=== PATIENT | female | born 1995 | race Caucasian/White ===

== ENCOUNTER 2017-11-08 14:16 | Emergency (ER) | payer BC, OTHER ==
[2017-11-08] MEDS ORDERED: METOCLOPRAMIDE 5 MG/ML 2 ML VIAL IVP STA (15:23)
[2017-11-08] MEDS ORDERED: SODIUM CHLORIDE 0.9% 2,000 ML IV STA (15:23)
--- NOTE | 2017-11-08 15:36 | ED ---
Nausea/Vomiting/Diarrhea HPI - General Chief complaint: Nausea/Vomiting/Diarrhea Stated complaint: vomiting/6-7 wks preg Time Seen by Provider: 11/08/17 15:23 Source: patient, RN notes reviewed Mode of arrival: ambulatory Limitations: no limitations - History of Present Illness Initial comments: This a 22-year-old female presents emergency Department chief complaint of nausea vomiting . Patient states that she is not exactly sure how far along she is. Patient had mild abdominal cramping no vaginal bleeding or vaginal discharge. She states she's been getting sick for one week. Patient states that her last menstrual cycle was at the end of August. Patient states she is try to contact her primary care physician and [facility] but they cannot get her in until of October. Patient states she feels lightheaded dizzy from being able to eat or drink anything. She denies any dysuria or hematuria. - Related Data Home Medications Medication Instructions Recorded Confirmed Dht-Wikl-Fbnla Acid 1 cap PO HS 11/08/17 11/08/17 [-U Capsule (formulary)] Previous Rx's Medication Instructions Recorded Metoclopramide [Reglan] 10 mg PO TID PRN #15 tab 11/08/17 Allergies Allergy/AdvReac Type Severity Reaction Status Date / Time No Known Allergies Allergy Verified 11/08/17 15:35 Review of Systems ROS Statement: Those systems with pertinent positive or pertinent negative responses have been documented in the HPI. ROS Other: All systems not noted in ROS Statement are negative. Past Medical History Additional Past Medical History / Comment(s): kidney stones History of Any Multi-Drug Resistant Organisms: None Reported Past Surgical History: No Surgical Hx Reported Past Psychological History: Bipolar Smoking Status: Former smoker Past Alcohol Use History: None Reported Past Drug Use History: None Reported General Exam Limitations: no limitations General appearance: alert, in no apparent distress Head exam: Present: atraumatic, normocephalic, normal inspection Neck exam: Present: normal inspection, full ROM. Absent: tenderness, meningismus, lymphadenopathy Respiratory exam: Present: normal lung sounds bilaterally. Absent: respiratory distress, wheezes, rales, rhonchi, stridor Cardiovascular Exam: Present: regular rate, normal rhythm, normal heart sounds. Absent: systolic murmur, diastolic murmur, rubs, gallop, clicks GI/Abdominal exam: Present: soft, tenderness (Mild left lower quadrant), normal bowel sounds. Absent: distended, guarding, rebound, rigid Back exam: Absent: CVA tenderness (R), CVA tenderness (L) Skin exam: Present: warm, dry, intact, normal color. Absent: rash Course Vital Signs 11/08/17 14:30 Temperature 98.9 F Pulse Rate 95 Respiratory 16 Rate Blood Pressure 120/72 O2 Sat by Pulse 98 Oximetry Medical Decision Making - Medical Decision Making 22-year-old female presented unresponsive chief complaint of nausea vomiting early . Patient's ultrasound does show single viable IUP 6 weeks 1 day. Patient will be discharged with antiemetics though she is advised to try Unisom and B6 [id number] first she is to follow-up with [facility] as soon as possible and return for any worsening symptoms. - Lab Data Result diagrams: 11/08/17 16:08 11/08/17 16:08 Lab Results 11/08/17 11/08/17 11/08/17 Range/Units 16:08 16:08 16:08 WBC 7.8 (4.0-11.0) k/uL RBC 4.22 (3.80-5.40) m/uL Hgb 12.2 (11.4-16.0) gm/dL Hct 37.6 (34.0-46.0) % MCV 89.1 (80.0-100.0) fL MCH 28.9 (25.0-35.0) pg MCHC 32.5 (31.0-37.0) g/dL RDW 14.3 (11.5-15.5) % Plt Count 338 (150-450) k/uL Neutrophils % 67 % Lymphocytes % 24 % Monocytes % 6 % Eosinophils % 1 % Basophils % 0 % Neutrophils # 5.2 (1.3-7.7) k/uL Lymphocytes # 1.9 (1.0-4.8) k/uL Monocytes # 0.5 (0-1.0) k/uL Eosinophils # 0.1 (0-0.7) k/uL Basophils # 0.0 (0-0.2) k/uL Sodium 137 (137-145) mmol/L Potassium 4.4 (3.5-5.1) mmol/L Chloride 102 (98-107) mmol/L Carbon Dioxide 25 (22-30) mmol/L Anion Gap 10 mmol/L BUN 8 (7-17) mg/dL Creatinine 0.72 (0.52-1.04) mg/dL Est GFR (MDRD) Af Amer >60 (>60 ml/min/1.73 sqM) Est GFR (MDRD) Non-Af >60 (>60 ml/min/1.73 sqM) Glucose 81 (74-99) mg/dL Calcium 9.6 (8.4-10.2) mg/dL Total Bilirubin 0.3 (0.2-1.3) mg/dL AST 16 (14-36) U/L ALT 32 (9-52) U/L Alkaline Phosphatase 55 (38-126) U/L Total Protein 7.0 (6.3-8.2) g/dL Albumin 4.1 (3.5-5.0) g/dL Amylase 39 (30-110) U/L Lipase 68 (23-300) U/L Blood Type B Positive Blood Type Recheck No Disposition Clinical Impression: Nausea/vomiting in Disposition: HOME SELF-CARE Condition: Stable Instructions: Nausea and Vomiting in (ED) Additional Instructions: Please return to the Emergency Department if symptoms worsen or any other concerns. Prescriptions: Metoclopramide [Reglan] 10 mg PO TID PRN #15 tab PRN Reason: GERD Referrals: None,Stated [Primary Care Provider] - 1-2 days Time of Disposition: 17:06
[2017-11-08 16:27] LABS: Basophils % (A) 0 %; CH 29.6; CHCM 33.4; Eosinophils # (A) 0.1 k/uL (0-0.7); Eosinophils % (A) 1 %; HCT 37.6 % (34.0-46.0); HDW 2.69; HGB 12.2 gm/dL (11.4-16.0); Luc # (Auto) 0.11; Luc % (Auto) 2; Lymphocytes # (A) 1.9 k/uL (1.0-4.8); Lymphocytes % (A) 24 %; MCH 28.9 pg (25.0-35.0); MCHC 32.5 g/dL (31.0-37.0); MCV 89.1 fL (80.0-100.0); Mean Platelet Volume 7.1; Monocytes # (A) 0.5 k/uL (0-1.0); Monocytes % (A) 6 %; Neutrophils # (A) 5.2 k/uL (1.3-7.7); Neutrophils % (A) 67 %; RBC 4.22 m/uL (3.80-5.40); RDW 14.3 % (11.5-15.5); WBC 7.8 k/uL (4.0-11.0); WBC (Perox) 8.24
[2017-11-08 16:35] LABS: ALT 32 U/L (9-52); AST 16 U/L (14-36); Alkaline Phosphatase 55 U/L (38-126); Amylase 39 U/L (30-110); Anion Gap 10 mmol/L; Blood Urea Nitrogen 8 mg/dL (7-17); Calcium 9.6 mg/dL (8.4-10.2); Carbon Dioxide 25 mmol/L (22-30); Chloride 102 mmol/L (98-107); Glucose 81 mg/dL (74-99); Non-African American GFR(MDRD) >60 (>60 ml/min/1.73 sqM); Potassium 4.4 mmol/L (3.5-5.1); Sodium 137 mmol/L (137-145); Total Bilirubin 0.3 mg/dL (0.2-1.3)
--- NOTE | 2017-11-08 16:57 | US ---
EXAMINATION TYPE: US OB <= 14 wk fetus DATE OF EXAM: 11/08/2017 COMPARISON: NONE CLINICAL HISTORY: Pain. Nausea and vomiting positive beta-hCG test. EXAM PERFORMED: Transabdominal (TA) EXAM MEASUREMENTS: GESTATIONAL AGE / DATING Physician Established: Not yet established Dates by LMP: LMP unknown Dates by First Scan: No previous this is first scan Dates by Current Scan for: (6 weeks/1 days) EDC: 07/03/18 MATERNAL ANATOMY Uterus: 8.1 x 5.8 x 6.8cm Right Ovary: 3.2 x 2.1 x 2.7cm Left Ovary: 2.8 x 1.9 x 1.7cm Post CDS / Adnexa: wnl Presence of free fluid: no Presence of corpus luteal cyst: hypoechoic area right ovary = 1.5 x 1.6 x 1.8cm GESTATION / SURVEY CRL: 0.4cm (6 weeks/1 days) Yolk Sac (normal less than 6mm): 0.3cm Heart Rate: 131 bpm Rhythm: Normal IUP: Viable IUP Date of LMP: end august Beta HcG (if available): Not available at this time Single live intrauterine gestation is confirmed as gestational sac, yolk sac, and pole are iden tified. No free fluid is seen in pelvic cul-de-sac. Both ovaries are identified. Within right ovary there is 1.5 cm hypoechoic lesion felt to reflect cor pus luteal cyst in the periphery. There is no suspicious extraovarian adnexal masses noted. IMPRESSION: Single live intrauterine gestation is confirmed, mean crown-rump length is 0.4 cm corresponding to 6 week 1 day old fetus.
[2017-11-08 17:42] VITALS: BP 102/49; PULSE 78; RESP 18; TEMP 98.7
== END 2017-11-08 17:42 | disposition home or self-care (01) ==
LOC: EC 14:16
DX: O21.0 Mild hyperemesis gravidarum (principal); Z87.442 Personal history of urinary calculi; Z87.891 Personal history of nicotine dependence; Z3A.01 Less than 8 weeks gestation of pregnancy; Z79.899 Other long term (current) drug therapy
CPT/HCPCS: 36415; 86900; 86901; 80053; 82150; 83690; 85025; 76801; 99284; 96374; 96361 ×2; J2765

== ENCOUNTER 2017-12-23 12:06 | Emergency (ER) | payer OTHER ==
[2017-12-23 12:19] VITALS: RESP 16
[2017-12-23] MEDS ORDERED: SODIUM CHLORIDE 0.9% 1,000 ML IV STA (13:38)
--- NOTE | 2017-12-23 13:39 | ED ---
General Adult HPI - General Chief complaint: Abdominal Pain Stated complaint: abdominal pain Time Seen by Provider: 12/23/17 13:16 Source: patient, RN notes reviewed Mode of arrival: ambulatory Limitations: no limitations - History of Present Illness Initial comments: Patient is a 22-year-old female who is approximately 13 weeks , who presents emergency room today with a chief complaint of possible kidney stone. She states she does have history of kidney stones had some left-sided flank pain last night that started. She states feels consistent with scabies seventh past. She does admit to increased nausea vomiting. Patient denies any vaginal bleeding or discharge. Denies any signs of hematuria at this time. Denies any other complaints associated symptoms. Patient denies any recent fever, chills, shortness of breath, chest pain, numbness or tingling, dysuria or hematuria, constipation or diarrhea, headaches or visual changes, or any other complaints. - Related Data Home Medications Medication Instructions Recorded Confirmed Qls-Zlbq-Ixtef Acid 1 cap PO DAILY 11/08/17 12/23/17 [-U Capsule (formulary)] Allergies Allergy/AdvReac Type Severity Reaction Status Date / Time No Known Allergies Allergy Verified 12/23/17 13:34 Review of Systems ROS Statement: Those systems with pertinent positive or pertinent negative responses have been documented in the HPI. ROS Other: All systems not noted in ROS Statement are negative. Past Medical History Additional Past Medical History / Comment(s): kidney stones History of Any Multi-Drug Resistant Organisms: None Reported Past Surgical History: No Surgical Hx Reported Past Psychological History: Bipolar Smoking Status: Former smoker Past Alcohol Use History: None Reported Past Drug Use History: None Reported General Exam Limitations: no limitations Course Vital Signs 12/23/17 12:15 Temperature 97.3 F L Pulse Rate 108 H Respiratory 16 Rate Blood Pressure 131/75 O2 Sat by Pulse 99 Oximetry Medical Decision Making - Medical Decision Making Patient reexamined at this time shows no signs of distress. She is resting comfortable. Patient's ultrasound shows single IUP 13 weeks 1 day. Patient's ultrasound of the kidneys and bladder show no acute abnormality. Patient's resting comfortable with this time. His tolerated by mouth fluids. Given IV bolus. At this time doing well will be discharged home advised follow-up over the next 2 days return here to the emergency room symptoms increase or worsen. - Lab Data Result diagrams: 12/23/17 13:30 12/23/17 13:30 Lab Results 12/23/17 12/23/17 12/23/17 Range/Units 13:30 13:30 13:30 WBC 9.7 (4.0-11.0) k/uL RBC 4.25 (3.80-5.40) m/uL Hgb 12.3 (11.4-16.0) gm/dL Hct 37.0 (34.0-46.0) % MCV 87.2 (80.0-100.0) fL MCH 28.9 (25.0-35.0) pg MCHC 33.2 (31.0-37.0) g/dL RDW 14.6 (11.5-15.5) % Plt Count 318 (150-450) k/uL Neutrophils % 72 % Lymphocytes % 22 % Monocytes % 5 % Eosinophils % 0 % Basophils % 0 % Neutrophils # 7.0 (1.3-7.7) k/uL Lymphocytes # 2.1 (1.0-4.8) k/uL Monocytes # 0.5 (0-1.0) k/uL Eosinophils # 0.0 (0-0.7) k/uL Basophils # 0.0 (0-0.2) k/uL Sodium 138 (137-145) mmol/L Potassium 4.0 (3.5-5.1) mmol/L Chloride 101 (98-107) mmol/L Carbon Dioxide 24 (22-30) mmol/L Anion Gap 13 mmol/L BUN 6 L (7-17) mg/dL Creatinine 0.60 (0.52-1.04) mg/dL Est GFR (MDRD) Af Amer >60 (>60 ml/min/1.73 sqM) Est GFR (MDRD) Non-Af >60 (>60 ml/min/1.73 sqM) Glucose 82 (74-99) mg/dL Calcium 9.9 (8.4-10.2) mg/dL Total Bilirubin 0.4 (0.2-1.3) mg/dL AST 14 (14-36) U/L ALT 21 (9-52) U/L Alkaline Phosphatase 48 (38-126) U/L Total Protein 6.9 (6.3-8.2) g/dL Albumin 4.1 (3.5-5.0) g/dL HCG, Quant 47399.3 mIU/mL Urine Color Yellow Urine Appearance Cloudy H (Clear) Urine pH 6.0 (5.0-8.0) Ur Specific [place] 1.007 (1.001-1.035) Urine Protein Negative (Negative) Urine Glucose (UA) Negative (Negative) Urine Ketones 3+ H (Negative) Urine Blood Negative (Negative) Urine Nitrite Negative (Negative) Urine Bilirubin Negative (Negative) Urine Urobilinogen <2.0 (<2.0) mg/dL Ur Leukocyte Esterase Negative (Negative) Urine RBC 1 (0-5) /hpf Urine WBC 3 (0-5) /hpf Ur Squamous Epith Cells 9 H (0-4) /hpf Amorphous Sediment Rare H (None) /hpf Urine Bacteria Few H (None) /hpf Urine Mucus Few H (None) /hpf Disposition Clinical Impression: , History of kidney stones Disposition: HOME SELF-CARE Condition: Good Instructions: (ED) Referrals: None,Stated [Primary Care Provider] - 1-2 days Sohan Pope DO [STAFF PHYSICIAN] - 1-2 days Time of Disposition: 15:01
[2017-12-23 13:57] LABS: Amorphous Sediment,Urine Rare /hpf; Appearance,Urine Cloudy (Clear); Bacteria,Urine Few /hpf; Bilirubin,Urine Negative (Negative); Blood,Urine Negative (Negative); Color,Urine Yellow; Glucose,Urine (UA) Negative (Negative); Ketones,Urine 3+ (Negative); Leukocyte Esterase,Urine Negative (Negative); Mucus,Urine Few /hpf; Nitrite,Urine Negative (Negative); Protein,Urine Negative (Negative); RBC,Urine 1 /hpf (0-5); Specific Gravity,Urine 1.007 (1.001-1.035); Squamous Epithelial Cell,Urine 9 /hpf (0-4); Urobilinogen,Urine <2.0 mg/dL (<2.0); WBC,Urine 3 /hpf (0-5)
[2017-12-23 13:58] LABS: Basophils % (A) 0 %; Eosinophils % (A) 0 %; HGB 12.3 gm/dL (11.4-16.0); Lymphocytes # (A) 2.1 k/uL (1.0-4.8); Lymphocytes % (A) 22 %; MCH 28.9 pg (25.0-35.0); MCHC 33.2 g/dL (31.0-37.0); MCV 87.2 fL (80.0-100.0); Mean Platelet Volume 6.9; Monocytes # (A) 0.5 k/uL (0-1.0); Monocytes % (A) 5 %; Neutrophils % (A) 72 %; Platelet Count 318 k/uL (150-450); RBC 4.25 m/uL (3.80-5.40); RDW 14.6 % (11.5-15.5); WBC 9.7 k/uL (4.0-11.0)
[2017-12-23 14:10] LABS: ALT 21 U/L (9-52); AST 14 U/L (14-36); Albumin 4.1 g/dL (3.5-5.0); Alkaline Phosphatase 48 U/L (38-126); Anion Gap 13 mmol/L; Blood Urea Nitrogen 6 mg/dL (7-17); Calcium 9.9 mg/dL (8.4-10.2); Carbon Dioxide 24 mmol/L (22-30); Chloride 101 mmol/L (98-107); Glucose 82 mg/dL (74-99); Sodium 138 mmol/L (137-145); Total Bilirubin 0.4 mg/dL (0.2-1.3); Total Protein 6.9 g/dL (6.3-8.2)
--- NOTE | 2017-12-23 14:39 | US ---
EXAMINATION TYPE: US kidneys/renal and bladder DATE OF EXAM: 12/23/2017 COMPARISON: NONE CLINICAL HISTORY: Pain. EXAM MEASUREMENTS: Right Kidney: 9.9 x 3.6 x 4.4 cm Left Kidney: 9.5 x 5.2 x 4.5 cm Right Kidney: No hydronephrosis or masses seen Left Kidney: No hydronephrosis or masses seen There is no evidence for hydronephrosis at this point in time. No nephrolithiasis is seen. No [place] s are identified. The urinary bladder is not evaluated. There is no ascites. Cortical medullary differentiation is maintained. IMPRESSION: No significant abnormality is evident.
--- NOTE | 2017-12-23 14:41 | US ---
EXAMINATION TYPE: US OB <=14 wks DATE OF EXAM: 12/23/2017 COMPARISON: US CLINICAL HISTORY: Pain. EXAM PERFORMED: Transabdominal (TA) EXAM MEASUREMENTS: GESTATIONAL AGE / DATING Physician Established: Patient unsure of due date Dates by LMP: unknown Dates by First Scan: (12 weeks/4 days) EDC: 07/03/18 Dates by Current Scan for: (13 weeks/1 days) EDC: 06/29/18 MATERNAL ANATOMY Uterus: 11.6 x 7.3 x 8.9cm Right Ovary: obscured by bowel gas Left Ovary: 2.0 x 1.4 x 1.6 Post CDS / Adnexa: wnl Presence of free fluid: wnl GESTATION / SURVEY CRL: 6.9 (13 weeks/1 days) Yolk Sac (normal less than 6mm): not visualized Heart Rate: 158 bpm Rhythm: Normal IUP: Live IUP Date of LMP: not known IMPRESSION: Single live intrauterine with a sonographic age of 13 weeks and 1 day and estimated date of delivery of 06/29/2018. CLYDED
[2017-12-23 14:54] LABS: HCG,Quantitative Serum 85078.3 mIU/mL
[2017-12-23] MEDS ORDERED: diphenhydrAMINE 50 MG/ML 1 ML VIAL IVP STA (15:59)
[2017-12-23] MEDS ORDERED: METOCLOPRAMIDE 5 MG/ML 2 ML VIAL IVP STA (15:59)
[2017-12-23 16:28] VITALS: BP 103/53; PULSE 89; TEMP 97.8
--- NOTE | 2017-12-24 06:01 | CDI ---
Documentation Clarification OP Dear Jay TOMAS PA-C Please do addendum to ED report for Physical exam . Thank you, Swati Aiken [employer] Manager If you have any question, Please contact pharmacy district manager at [phone] [facility]
== END 2017-12-23 16:34 | disposition home or self-care (01) ==
LOC: EC 12:06
DX: O26.892 Other specified pregnancy related conditions, second trimester (principal); R10.9 Unspecified abdominal pain; O21.9 Vomiting of pregnancy, unspecified; Z3A.13 13 weeks gestation of pregnancy; Z87.442 Personal history of urinary calculi; Z87.891 Personal history of nicotine dependence
CPT/HCPCS: 99284; 96374; 96375; 96361 ×2; 36415; 80053; 85025; 81001; 84702; 87086; 87077; 87186; 76801; 76770; J1200; J2765; 76817

== ENCOUNTER 2018-02-27 17:24 | Outpatient (CLI) | payer OTHER ==
[2018-02-27 18:20] VITALS: BP 136/79; PULSE 111; RESP 18; TEMP 97.8
--- NOTE | 2018-03-01 05:52 | P.MSEPDOC ---
Presenting Problems - Arrival Data Date of Arrival on Unit: 02/27/18 Time of Arrival on Unit: 17:36 Mode of Transport: Ambulatory - Complaint Comment: back pain Medical History - Information : 1 Para: 0 Term: 0 : 0 Abortions: Spontaneous or Elective: 0 Number of Living Children: 0 - Gestational Age Gestational Age by BALWINDER (wks/days): 22 Weeks and 0 Days - History Comment: pt has seen mfm to r/o short cervix Review of Systems - Review of Systems Constitutional: No problems Breast: No problems ENT: No problems Cardiovascular: No problems Respiratory: No problems Gastrointestinal: No problems Genitourinary: No problems Musculoskeletal: No problems Neurological: No problems Skin: No problems Vital Signs - Temperature Temperature: 97.8 F Temperature Source: Oral - Pulse Right Pulse Rate: 111 - Respirations Respiratory Rate: 18 Oxygen Delivery Method: Room Air - Blood Pressure Right Arm Blood Pressure: 136/79 Blood Pressure Mean: 98 Blood Pressure Source: Automatic Cuff Medical Screen Scoring (Pre) - Cervical Exam Dilation: 0 cm = 0 - Uterine Contractions Frequency: N/A Duration: N/A Intensity: N/A - Maternal Vital Signs Maternal Temperature: N/A Maternal Blood Pressure: N/A Maternal Respirations: N/A - Pain Assessment Pain Scale Used: Numeric (1 - 10) Pain Intensity: 6 Pain Management Goal: 4 Pain Description: *Acute Pain Frequency: Constant Pain Duration Units: Days Pain Behavior: None Exhibited Pain Aggravating Factors: None - Maternal Trauma Maternal Trauma: N/A - Assessment Baseline FHR: 155 Position: N/A Station: N/A - Total Score Total Score (Pre): 0 - Level of Risk Level of Risk: Low (0-5) Physician Notification (Pre) - Physician Notified Physician Notified Date: 02/27/18 Physician Notified Time: 17:47 Physician/Practitioner Notifed:: aquiles Spoke With: aquiles New Order Received: Yes - Notification Comment Comment: reported pt visit to triage with complaints of back pain, pt reported to rn visit to mfm to r/o shortened. would like cervix checked. if closed pt may be discharged home Disposition - Disposition OB Disposition: Discharge to home Discharge Date: 02/27/18 Discharge Time: 17:58 I agree with the RN Medical Screening Exam: Yes Risk & Benefit of care provided described in d/c instruction: Yes Diagnosis: FALSE LABOR BEFORE 37 COMPLETED WEEKS OF GEST, THIRD TRI
== END 2018-02-27 17:58 | disposition home or self-care (01) ==
LOC: FBPOP 17:24
PROVIDERS: ATTEND Obstetrics & Gynecology
DX: O47.03 False labor before 37 completed weeks of gestation, third trimester (principal); Z3A.22 22 weeks gestation of pregnancy
CPT/HCPCS: 99213

== ENCOUNTER 2018-03-31 18:20 | Outpatient (CLI) | payer OTHER ==
[2018-03-31 19:00] LABS: Appearance,Urine Clear (Clear); Bilirubin,Urine Negative (Negative); Blood,Urine Negative (Negative); Color,Urine Yellow; Glucose,Urine (UA) Negative (Negative); Ketones,Urine 2+ (Negative); Leukocyte Esterase,Urine Negative (Negative); Nitrite,Urine Negative (Negative); Protein,Urine Trace (Negative); Specific Gravity,Urine 1.014 (1.001-1.035); Urobilinogen,Urine <2.0 mg/dL (<2.0)
[2018-03-31 19:39] VITALS: BP 135/65; PULSE 113; RESP 15; TEMP 97.2
--- NOTE | 2018-04-01 06:11 | P.MSEPDOC ---
Presenting Problems - Arrival Data Date of Arrival on Unit: 03/31/18 Time of Arrival on Unit: 18:21 Mode of Transport: Ambulatory - Complaint OB-Reason for Admission/Chief Complaint: Observation/Evaluation Medical History - Information : 1 Para: 0 Term: 0 : 0 Abortions: Spontaneous or Elective: 0 Number of Living Children: 0 - Gestational Age Gestational Age by BALWINDER (wks/days): 26 Weeks and 4 Days Review of Systems - Review of Systems Constitutional: No problems Breast: No problems ENT: No problems Cardiovascular: No problems Respiratory: No problems Gastrointestinal: No problems Genitourinary: No problems Musculoskeletal: No problems Neurological: No problems Skin: No problems Vital Signs - Temperature Temperature: 97.2 F Temperature Source: Temporal Artery Scan - Pulse Pulse Oximetery Pulse Rate: 113 Pulse Assessment Method: Pulse Oximetry - Respirations Respiratory Rate: 15 Oxygen Delivery Method: Room Air O2 Sat by Pulse Oximetry: 100 - Blood Pressure Right Arm Blood Pressure: 135/65 Blood Pressure Mean: 88 Blood Pressure Source: Automatic Cuff Medical Screen Scoring (Pre) - Cervical Exam Dilation: Exam Deferred Effacement: Exam Deferred Membranes: Intact - Uterine Contractions Frequency: N/A Duration: N/A Intensity: N/A - Maternal Vital Signs Maternal Temperature: N/A Maternal Blood Pressure: N/A Signs of Preeclampsia: N/A Maternal Respirations: N/A - Pain Assessment Pain Scale Used: Numeric (1 - 10) Pain Intensity: 0 Pain Management Goal: 0 Pain Description: *Acute - Maternal Trauma Maternal Trauma: N/A - Assessment Baseline FHR: 125 Heart Rate - NICHD Category: Category I (Normal) = 0 NST: Reactive Position: N/A Station: N/A - Total Score Total Score (Pre): 0 - Level of Risk Level of Risk: Low (0-5) Physician Notification (Pre) - Physician Notified Physician Notified Date: 03/31/18 Physician Notified Time: 19:15 Physician/Practitioner Notifed:: Debbie Crocker Order Received: Yes Disposition - Disposition OB Disposition: Discharge to home Discharge Date: 03/31/18 Discharge Time: 19:30 I agree with the RN Medical Screening Exam: Yes Risk & Benefit of care provided described in d/c instruction: Yes Diagnosis: VOMITING OF , UNSPECIFIED
== END 2018-03-31 19:30 | disposition home or self-care (01) ==
LOC: FBPOP 18:20
PROVIDERS: ATTEND Obstetrics & Gynecology
DX: O21.2 Late vomiting of pregnancy (principal); Z3A.26 26 weeks gestation of pregnancy
CPT/HCPCS: 59025; 81003; G0463; 99213

== ENCOUNTER 2018-06-06 01:16 | Outpatient (CLI) | payer OTHER ==
[2018-06-06 02:24] VITALS: BP 128/74; PULSE 88; RESP 16; TEMP 97.6
[2018-06-06 02:24] LABS: Appearance,Urine Cloudy (Clear); Bacteria,Urine Rare /hpf; Bilirubin,Urine Negative (Negative); Blood,Urine Moderate (Negative); Color,Urine Yellow; Glucose,Urine (UA) Negative (Negative); Ketones,Urine Negative (Negative); Leukocyte Esterase,Urine Moderate (Negative); Mucus,Urine Rare /hpf; Nitrite,Urine Negative (Negative); PH, Urine 6.5 (5.0-8.0); Protein,Urine Negative (Negative); RBC,Urine 7 /hpf (0-5); Specific Gravity,Urine 1.015 (1.001-1.035); Squamous Epithelial Cell,Urine 5 /hpf (0-4); Urobilinogen,Urine <2.0 mg/dL (<2.0); WBC,Urine 3 /hpf (0-5)
--- NOTE | 2018-06-06 09:29 | P.MSEPDOC ---
Presenting Problems - Arrival Data Date of Arrival on Unit: 06/06/18 Time of Arrival on Unit: 01:16 Mode of Transport: Wheelchair - Complaint OB-Reason for Admission/Chief Complaint: Decreased Movement, Pain Comment: abdominal pain-6 Medical History - Information : 1 Para: 0 Term: 0 : 0 Abortions: Spontaneous or Elective: 0 Number of Living Children: 0 - Gestational Age Gestational Age by BALWINDER (wks/days): 36 Weeks and 1 Days Review of Systems - Review of Systems Constitutional: No problems Breast: No problems ENT: Cough Cardiovascular: No problems Respiratory: No problems Gastrointestinal: No problems Genitourinary: No problems Musculoskeletal: No problems Neurological: No problems Skin: No problems Vital Signs - Temperature Temperature: 97.6 F Temperature Source: Temporal Artery Scan - Pulse Right Sitting Brachial Pulse Rate: 88 Pulse Assessment Method: Automatic Cuff - Respirations Respiratory Rate: 16 Oxygen Delivery Method: Room Air O2 Sat by Pulse Oximetry: 100 - Blood Pressure Right Arm Sitting Blood Pressure: 128/74 Blood Pressure Mean: 92 Blood Pressure Source: Automatic Cuff Medical Screen Scoring (Pre) - Cervical Exam Dilation: 1-3 cm = 1 Effacement: More than 50% = 2 Membranes: Intact - Uterine Contractions Frequency: N/A Duration: N/A Intensity: N/A - Maternal Vital Signs Maternal Temperature: N/A Signs of Preeclampsia: N/A Maternal Respirations: N/A - Pain Assessment Pain Location and Character: Abdomen Pain Scale Used: Numeric (1 - 10) Pain Intensity: 6 Pain Description: Sore, Tender Pain Frequency: Constant Pain Behavior: Vocalization Pain Aggravating Factors: Coughing - Assessment Baseline FHR: 120 Heart Rate - NICHD Category: Category I (Normal) = 0 NST: Reactive - Total Score Total Score (Pre): 3 - Level of Risk Level of Risk: Low (0-5) Physician Notification (Pre) - Physician Notified Physician Notified Date: 06/06/18 Physician Notified Time: 02:51 Physician/Practitioner Notifed:: dr fountain New Order Received: Yes - Notification Comment Comment: pt to be discharged home at this time, send urine for culture, pt to f/ u with dr carreon this week. Disposition - Disposition OB Disposition: Discharge to home Discharge Date: 06/06/18 Discharge Time: 03:00 I agree with the RN Medical Screening Exam: Yes Risk & Benefit of care provided described in d/c instruction: Yes Diagnosis: DECREASED MOVEMENTS, THIRD TRIMESTER, UNSP
== END 2018-06-06 03:00 | disposition home or self-care (01) ==
LOC: FBPOP 01:16
PROVIDERS: ATTEND Obstetrics & Gynecology
DX: O36.8130 Decreased fetal movements, third trimester, not applicable or unspecified (principal); Z3A.36 36 weeks gestation of pregnancy
CPT/HCPCS: 59025; 81001; 87086; G0463; 99213

== ENCOUNTER 2018-06-18 12:56 | Outpatient (CLI) | payer OTHER ==
[2018-06-18 13:53] VITALS: BP 137/83; PULSE 79; RESP 16; TEMP 97.4
--- NOTE | 2018-06-18 15:07 | P.MSEPDOC ---
Presenting Problems - Arrival Data Date of Arrival on Unit: 06/18/18 Time of Arrival on Unit: 13:00 Mode of Transport: Ambulatory - Complaint OB-Reason for Admission/Chief Complaint: Possible Onset of Labor, Decreased Movement Comment: sister fell down stairs . now she is sore, crampy. not felt baby move. called dr and told to come in Medical History - Information : 1 Para: 0 Term: 0 : 0 Abortions: Spontaneous or Elective: 0 Number of Living Children: 0 - Gestational Age Gestational Age by BALWINDER (wks/days): 37 Weeks and 6 Days Review of Systems - Review of Systems Constitutional: No problems Breast: No problems ENT: No problems Cardiovascular: No problems Respiratory: No problems Gastrointestinal: No problems Genitourinary: No problems Musculoskeletal: No problems Neurological: No problems Skin: No problems Vital Signs - Temperature Temperature: 97.4 F Temperature Source: Tympanic - Pulse Apical Pulse Rate: 79 Pulse Assessment Method: Automatic Cuff - Respirations Respiratory Rate: 16 Oxygen Delivery Method: Room Air - Blood Pressure Right Arm Blood Pressure: 137/83 Blood Pressure Mean: 101 Blood Pressure Source: Automatic Cuff Medical Screen Scoring (Pre) - Cervical Exam Dilation: 1-3 cm = 1 Effacement: More than 50% = 2 Membranes: Intact - Uterine Contractions Frequency: N/A Duration: N/A Intensity: N/A - Maternal Vital Signs Maternal Temperature: N/A Maternal Blood Pressure: N/A Signs of Preeclampsia: N/A Maternal Respirations: N/A - Pain Assessment Pain Location and Character: Abdomen - Maternal Trauma Maternal Trauma: N/A - Assessment Baseline FHR: 120 Heart Rate - NICHD Category: Category I (Normal) = 0 NST: Reactive Position: N/A Station: N/A - Total Score Total Score (Pre): 3 - Level of Risk Level of Risk: Low (0-5) Physician Notification (Pre) - Physician Notified Physician Notified Date: 06/18/18 Physician Notified Time: 13:45 Physician/Practitioner Notifed:: velma Spoke With: velma New Order Received: Yes - Notification Comment Comment: dr carreon here. talked with pt. dilation the same as in office last week Disposition - Disposition OB Disposition: Discharge to home Discharge Date: 06/18/18 Discharge Time: 14:20 I agree with the RN Medical Screening Exam: Yes Risk & Benefit of care provided described in d/c instruction: Yes Diagnosis: DECREASED MOVEMENTS, THIRD TRIMESTER, UNSP
== END 2018-06-18 14:20 | disposition home or self-care (01) ==
LOC: FBPOP 12:56
PROVIDERS: ATTEND Obstetrics & Gynecology
DX: O36.8130 Decreased fetal movements, third trimester, not applicable or unspecified (principal); Z3A.37 37 weeks gestation of pregnancy
CPT/HCPCS: 59025; G0463; 99213

== ENCOUNTER 2018-06-25 02:20 | Outpatient (CLI) | payer OTHER ==
[2018-06-25 04:57] VITALS: BP 137/85; PULSE 65; RESP 16; TEMP 96.7
--- NOTE | 2018-06-25 08:32 | P.MSEPDOC ---
Presenting Problems - Arrival Data Date of Arrival on Unit: 06/25/18 Time of Arrival on Unit: 02:20 Mode of Transport: Ambulatory - Complaint OB-Reason for Admission/Chief Complaint: Possible Onset of Labor Medical History - Information : 1 Para: 0 Term: 0 : 0 Abortions: Spontaneous or Elective: 0 Number of Living Children: 0 - Gestational Age Gestational Age by BALWINDER (wks/days): 38 Weeks and 6 Days Review of Systems - Review of Systems Constitutional: No problems Breast: No problems ENT: No problems Cardiovascular: No problems Respiratory: No problems Gastrointestinal: No problems Genitourinary: No problems Musculoskeletal: No problems Neurological: No problems Skin: No problems Vital Signs - Temperature Temperature: 96.7 F Temperature Source: Temporal Artery Scan - Pulse Right Brachial Pulse Rate: 65 Pulse Assessment Method: Automatic Cuff - Respirations Respiratory Rate: 16 Oxygen Delivery Method: Room Air O2 Sat by Pulse Oximetry: 99 - Blood Pressure Right Arm Blood Pressure: 137/85 Blood Pressure Mean: 102 Blood Pressure Source: Automatic Cuff Medical Screen Scoring (Pre) - Cervical Exam Dilation: 1-3 cm = 1 Membranes: Intact - Uterine Contractions Frequency: > 5 minutes apart = 1 Duration: N/A Intensity: N/A - Maternal Vital Signs Maternal Temperature: N/A Maternal Blood Pressure: N/A Signs of Preeclampsia: N/A Maternal Respirations: N/A - Pain Assessment Pain Location and Character: Abdomen Pain Scale Used: Numeric (1 - 10) Pain Intensity: 7 Pain Description: Cramping Pain Frequency: Intermittent Pain Behavior: Facial Grimacing Pain Aggravating Factors: Contractions - Assessment Baseline FHR: 115 Heart Rate - NICHD Category: Category I (Normal) = 0 NST: Reactive Position: N/A Station: N/A - Total Score Total Score (Pre): 2 - Level of Risk Level of Risk: Low (0-5) Physician Notification (Pre) - Physician Notified Physician Notified Date: 06/25/18 Physician Notified Time: 02:51 Physician/Practitioner Notifed:: Dr. aCmpos Spoke With: Dr. Campos New Order Received: Yes - Notification Comment Comment: If no change in vag exam after one hour to d/c pt to home. Disposition - Disposition OB Disposition: Discharge to home Discharge Date: 06/25/18 Discharge Time: 03:47 I agree with the RN Medical Screening Exam: Yes Risk & Benefit of care provided described in d/c instruction: Yes Diagnosis: FALSE LABOR BEFORE 37 COMPLETED WEEKS OF GEST, THIRD TRI
== END 2018-06-25 03:47 | disposition home or self-care (01) ==
LOC: FBPOP 02:20
PROVIDERS: ATTEND Obstetrics & Gynecology
DX: O47.03 False labor before 37 completed weeks of gestation, third trimester (principal); Z3A.38 38 weeks gestation of pregnancy
CPT/HCPCS: 59025; G0463; 99213

== ENCOUNTER 2018-06-25 08:01 | Inpatient (IN) | payer OTHER ==
[2018-06-25] MEDS ORDERED: OXYTOCIN 10 UNIT/ML 1 ML VIAL IM PRN (08:15)
[2018-06-25] MEDS ORDERED: METHYLERGONOVINE 0.2 MG/ML 1 ML AMP IM PRN (08:15)
[2018-06-25] MEDS ORDERED: LIDOCAINE 1% (PF) 10 MG/ML (30 ML SDV) SQ PRN (08:15)
[2018-06-25] MEDS ORDERED: TERBUTALINE 1 MG/ML VIAL SQ PRN (08:15)
[2018-06-25] MEDS ORDERED: OXYTOCIN 20 UNITS/1000 ML NS 1,000 ML IV SCH (08:15)
[2018-06-25] MEDS ORDERED: CARBOPROST TROMETHAMINE 250 MCG/ML 1 ML AMP IM PRN (08:15)
[2018-06-25] MEDS: LACTATED RINGERS 1,000 ML IV SCH ×2 (08:30→20:23)
[2018-06-25 08:40] LABS: Anisocytosis Slight; Basophils % (A) 0 %; Eosinophils % (A) 0 %; HCT 34.2 % (34.0-46.0); Lymphocytes # (A) 1.7 k/uL (1.0-4.8); Lymphocytes % (A) 16 %; MCH 25.5 pg (25.0-35.0); MCHC 32.1 g/dL (31.0-37.0); MCV 79.5 fL (80.0-100.0); Mean Platelet Volume 7.4; Monocytes # (A) 0.3 k/uL (0-1.0); Monocytes % (A) 3 %; Neutrophils # (A) 8.4 k/uL (1.3-7.7); Neutrophils % (A) 80 %; Platelet Count 284 k/uL (150-450); RDW 16.1 % (11.5-15.5); WBC 10.5 k/uL (4.0-11.0)
[2018-06-25] MEDS ORDERED: HYDROCORTISONE 2.5% RECTAL CREAM 30 GM TUBE RECTAL PRN (09:22)
[2018-06-25] MEDS ORDERED: LANOLIN CREAM 5 GM TUBE TOPICAL PRN (09:22)
[2018-06-25] MEDS ORDERED: diphenhydrAMINE 50 MG/ML 1 ML VIAL IVP PRN ×2 (09:22)
[2018-06-25] MEDS ORDERED: SIMETHICONE 80 MG CHEWABLE PO PRN (09:22)
[2018-06-25] MEDS ORDERED: diphenhydrAMINE 50 MG CAP PO PRN (09:22)
[2018-06-25] MEDS ORDERED: ZOLPIDEM 5 MG TAB PO PRN (09:22)
[2018-06-25] MEDS ORDERED: diphenhydrAMINE 25 MG CAP PO PRN (09:22)
[2018-06-25] MEDS ORDERED: WITCH HAZEL 1 EACH MED..PAD TOPICAL PRN (09:22)
[2018-06-25] MEDS ORDERED: BENZOCAINE/MENTHOL SPRAY 1 GM/SPRAY AEROSOL TOPICAL PRN (09:22)
--- NOTE | 2018-06-25 09:25 | P.HPOB ---
History of Present Illness H&P Date: 06/25/18 Chief Complaint: Intrauterine at term: Active labor Alexus is a 22-year-old at 38 weeks 6 days gestation who ryes in active labor dilated to 9 cm. She was seen in labor and delivery through the night and had made no cervical change was therefore discharged home but returned in active labor. Artificial rupture membranes was performed and clear fluid is noted. She denies competitions or problems with the and other than a history of marijuana use denies any other significant clinical history. Pertinent labs include A+ blood type Rh abdomen was negative rubella was immune hepatitis B surface antigen was negative and group B strep was also negative. heart tones are noted to be in the 120s and while she is pushing her dropping down into the 80s but recovered quickly after pushing, O2 will be applied. Assessment intrauterine at term. History of marijuana use. Plan expect spontaneous vaginal delivery Past Medical History Additional Past Medical History / Comment(s): kidney stones History of Any Multi-Drug Resistant Organisms: None Reported Past Surgical History: No Surgical Hx Reported Smoking Status: Never smoker Medications and Allergies Home Medications Medication Instructions Recorded Confirmed Type Cfn-[id number]-Luyqn Acid 1 cap PO DAILY 11/08/17 06/25/18 History [-U Capsule (formulary)] Allergies Allergy/AdvReac Type Severity Reaction Status Date / Time codeine Allergy Unknown Verified 06/25/18 08:14 Exam Osteopathic Statement: *. No significant issues noted on an osteopathic structural exam other than those noted in the History and Physical/Consult. Intake and Output 06/24/18 06/25/18 06/25/18 22:59 06:59 14:59 Other: Weight 90.718 kg - OBG Physical Exam Breast: both: normal (no masses) Abdomen: bowel sounds normal, no diffuse tenderness, no bruit present, no guarding noted, no hepatomegaly, no splenomegaly, no mass Vulva: both: normal Vagina: normal moisture, no discharge Cervix: no lesion, no discharge Uterus: normal size, normal contour Adnexa: both: normal Anus/Rectum: normal perianal skin, no rectal mass, no hemorrhoids, heme negative Pupils appear somewhat dilated. Incidental finding of questionable needle rowley on bilateral arms the antecubital space Results Result Diagrams: 06/25/18 08:30 Abnormal Lab Results - Last 24 Hours (Table) 06/25/18 Range/Units 08:30 Hgb 11.0 L (11.4-16.0) gm/dL MCV 79.5 L (80.0-100.0) fL RDW 16.1 H (11.5-15.5) % Neutrophils # 8.4 H (1.3-7.7) k/uL
--- NOTE | 2018-06-25 09:27 | P.PROBDLV ---
Vaginal Delivery Note - . Vaginal Delivery Note: Patient progressed complete and pushing with spontaneous vaginal delivery of a viable male over a first-degree perineal laceration and bilateral labial lacerations. Following delivery of the head nuchal cord 1 was noted and easily reduced. Mouth nares were then bulb suctioned and baby was placed on mother's abdomen where the umbilical cord was allowed to pulsate for 30-45 seconds prior to clamping and cutting due to small size of baby. Nursery personnel was present to assume care. Placenta was then delivered intact and Pitocin was added to the IV. Perineal vaginal laceration was repaired with 3-0 Vicryl in interrupted fashion. And the left labial tear was repaired with 3-0 Vicryl but she refused to have the right labial tear repaired. I did explain that there was a labial tear and that it would heal not together but it was not bleeding so no absolute treatment would be required. scores were 8 and 9 at one and 5 minutes respectively and the weight was 5 lbs. 6 oz. Placenta grossly appeared mature with multiple calcifications and was very small in size for a 39 week delivery. Will send pathology.
[2018-06-25] MEDS: IBUPROFEN 600 MG TAB PO PRN (10:13)
[2018-06-25 15:10] VITALS: BMI 32.3
[2018-06-25] MEDS: ACETAMINOPHEN TAB 325 MG TAB PO PRN (20:22)
[2018-06-25] MEDS: SENNOSIDES-DOCUSATE SODIUM 1 EACH TAB PO SCH (20:22)
[2018-06-26] MEDS: ACETAMINOPHEN TAB 325 MG TAB PO PRN ×2 (03:41→12:43)
[2018-06-26] MEDS: IBUPROFEN 600 MG TAB PO PRN (09:12)
[2018-06-26 09:20] VITALS: BP 126/68; PULSE 75; RESP 18; TEMP 97.4
--- NOTE | 2018-06-26 09:56 | P.DS ---
Providers Date of admission: 06/25/18 08:13 Expected date of discharge: 06/26/18 Attending physician: Joann Barrios Primary care physician: Stated None Hospital Course: Alexus is doing very well post day 1. She is ambulating, voiding, and she is tolerating her diet. She voices no complaints. She is requesting discharge home today. Vital signs are stable and she is afebrile. Heart regular, lungs clear, extremities without pain. Abdomen soft uterus is firm lochia is reported light. Assessment day 1. Plan discharged home. Follow up with Dr. Barrios in 6 weeks. Prescription for Motrin was provided as well as a prescription for a breast pump. All other questions are answered for her prior to her discharge and she is stable for discharge this time. Patient Condition at Discharge: Good Plan - Discharge Summary New Discharge Prescriptions: New Ibuprofen [Motrin] 600 mg PO Q6HR PRN #30 tab PRN Reason: Pain No Action Btf-Eepy-Niasc Acid [-U Capsule (formulary)] 1 cap PO DAILY Discharge Medication List Chq-Pwzk-Carki Acid [-U Capsule (formulary)] 1 cap PO DAILY [History] Ibuprofen [Motrin] 600 mg PO Q6HR PRN #30 tab 06/26/18 [Rx] Follow up Appointment(s)/Referral(s): Joann Barrios DO [Doctor of Osteopathic Medicine] - 1 Week Activity/Diet/Wound Care/Special Instructions: No heavy lifting, limit stairs and driving, and pelvic rest. If any high temperatures, heavy bleeding, or severe pain call my office Discharge Disposition: HOME SELF-CARE
[2018-06-26] MEDS: SENNOSIDES-DOCUSATE SODIUM 1 EACH TAB PO SCH (15:19)
== END 2018-06-26 14:00 | disposition home or self-care (01) | DRG 775 ==
LOC: FBPOP 08:01 → 4FBP 08:13
PROVIDERS: ADMIT Obstetrics & Gynecology; ATTEND Obstetrics & Gynecology
PROC: 0HQ9XZZ Repair Perineum Skin, External Approach (ICD-10-PCS; principal; 2018-06-25)
PROC: 10907ZC Drainage of Amniotic Fluid, Therapeutic from Products of Conception, Via Natural or Artificial Opening (ICD-10-PCS; principal; 2018-06-25)
PROC: 10E0XZZ Delivery of Products of Conception, External Approach (ICD-10-PCS; principal; 2018-06-25)
DX: O69.81X0 Labor and delivery complicated by cord around neck, without compression, not applicable or unspecified (principal); Z37.0 Single live birth; Z3A.38 38 weeks gestation of pregnancy; O70.0 First degree perineal laceration during delivery; Z87.442 Personal history of urinary calculi
CPT/HCPCS: 85025; 88307

== ENCOUNTER 2019-01-30 10:55 | Emergency (ER) | payer OTHER ==
[2019-01-30 11:22] VITALS: RESP 18
[2019-01-30] MEDS ORDERED: IBUPROFEN 600 MG TAB PO STA (12:09)
[2019-01-30] MEDS ORDERED: ALBUTEROL NEBULIZED 2.5 MG/3 ML INHALATION STA (12:09)
[2019-01-30] MEDS ORDERED: ACETAMINOPHEN TAB 500 MG TAB PO STA (12:09)
--- NOTE | 2019-01-30 13:10 | ED ---
URI HPI - General Chief Complaint: Upper Respiratory Infection Stated Complaint: FLU LIKE SYMPTOMS Time Seen by Provider: 01/30/19 11:34 Source: patient, RN notes reviewed, old records reviewed Mode of arrival: ambulatory Limitations: no limitations - History of Present Illness Initial Comments: Physical is a 23-year-old female with fever, chills, cough congestion sore throat for the past 2 days. She is also here with her son with similar complaints. Patient has had no recent Motrin or Tylenol. She's had some episodes of dry heaving and nausea. Patient has had all her vaccines but did not receive flu vaccine this year.Patient denies any recent shortness of breath, chest pain, back pain, abdominal pain, nausea vomiting, numbness or tingling, dysuria or hematuria, constipation or diarrhea, headaches or visual changes, or any other current symptoms - Related Data Previous Rx's Medication Instructions Recorded Acetaminophen Tab [Tylenol Tab] 650 mg PO Q6H #20 tablet 01/30/19 Albuterol Inhaler [Ventolin Hfa 1 - 2 puff INHALATION RT-Q6H PRN 01/30/19 Inhaler] #1 inhaler Ibuprofen [Motrin] 600 mg PO Q8HR PRN #20 tab 01/30/19 Oseltamivir [Tamiflu] 75 mg PO DAILY #10 cap 01/30/19 methylPREDNISolone Dose Pack 4 mg PO DIRECTED #21 package 01/30/19 [Medrol Dose Pack] Allergies Allergy/AdvReac Type Severity Reaction Status Date / Time No Known Allergies Allergy Verified 01/30/19 11:52 Review of Systems ROS Statement: Those systems with pertinent positive or pertinent negative responses have been documented in the HPI. ROS Other: All systems not noted in ROS Statement are negative. Past Medical History Past Medical History: Asthma, Musculoskeletal Disorder Additional Past Medical History / Comment(s): kidney stones, right hip " muscle rubs on the bone". hard of hearing in left ear. nearsighted. wears glasses History of Any Multi-Drug Resistant Organisms: None Reported Past Surgical History: No Surgical Hx Reported Additional Past Anesthesia/Blood Transfusion Reaction / Comment(s): no hx Past Psychological History: Bipolar Smoking Status: Current some day smoker Past Alcohol Use History: None Reported Past Drug Use History: Marijuana - Past Family History Father Additional Family Medical History / Comment(s): psychological history-, seizure, etoh hx Mother Family Medical History: Coronary Artery Disease (CAD), Thyroid Disorder Additional Family Medical History / Comment(s): diverticulitis, General Exam - General Exam Comments Initial Comments: 23-year-old female. Alert and oriented 3. No significant distress. Limitations: no limitations General appearance: alert, in no apparent distress Head exam: Present: atraumatic, normocephalic, normal inspection Eye exam: Present: normal appearance, PERRL, EOMI. Absent: scleral icterus, conjunctival injection, periorbital swelling ENT exam: Present: normal oropharynx Neck exam: Present: normal inspection. Absent: tenderness, meningismus, lymphadenopathy Respiratory exam: Present: normal lung sounds bilaterally. Absent: respiratory distress, wheezes, rales, rhonchi, stridor Cardiovascular Exam: Present: regular rate, normal rhythm, normal heart sounds. Absent: systolic murmur, diastolic murmur, rubs, gallop, clicks GI/Abdominal exam: Present: soft, normal bowel sounds. Absent: distended, tenderness, guarding, rebound, rigid Extremities exam: Present: normal inspection, full ROM, normal capillary refill. Absent: tenderness, pedal edema, joint swelling, calf tenderness Back exam: Present: normal inspection Neurological exam: Present: alert, oriented X3, CN II-XII intact Psychiatric exam: Present: normal affect, normal mood Skin exam: Present: warm, dry, intact, normal color. Absent: rash Course Vital Signs 01/30/19 01/30/19 01/30/19 11:18 12:45 12:52 Temperature 100.2 F H Pulse Rate 87 88 92 Respiratory 18 Rate Blood Pressure 121/73 O2 Sat by Pulse 98 Oximetry 01/30/19 14:00 Temperature 100.4 F H Pulse Rate 142 H Respiratory 18 Rate Blood Pressure 114/83 O2 Sat by Pulse 96 Oximetry Medical Decision Making - Medical Decision Making 23-year-old female with fever chills cough congestion for the past 2 days. She is positive for influenza A. Discharge Patient with prescription for Motrin Tylenol Tamiflu. Discussed strict return parameters. Patient is given albuterol treatment and has improvement of cough and wheezing. Patient was given Motrin and Tylenol in ED. Patient will be discharged also with a prescription for Medrol Dosepak and albuterol inhaler for cough and wheeze. Discussed strict return parameters are remaining hydrated. All questions were answered. - Lab Data Lab Results 01/30/19 Range/Units 11:55 Influenza Type A RNA Detected H (Not Detectd) Influenza Type B (PCR) Not Detected (Not Detectd) Disposition Clinical Impression: Influenza A, Bronchitis Disposition: HOME SELF-CARE Condition: Good Instructions (If sedation given, give patient instructions): Influenza (ED) Additional Instructions: Patient has a close follow-up with primary care physician. Take medications as prescribed. Motrin Tylenol and steroids for inflammation. Patient should return to emergency department if any alarming signs or symptoms occur. Prescriptions: methylPREDNISolone Dose Pack [Medrol Dose Pack] 4 mg PO DIRECTED #21 package Ibuprofen [Motrin] 600 mg PO Q8HR PRN #20 tab PRN Reason: Pain Oseltamivir [Tamiflu] 75 mg PO DAILY #10 cap Acetaminophen Tab [Tylenol Tab] 650 mg PO Q6H #20 tablet Albuterol Inhaler [Ventolin Hfa Inhaler] 1 - 2 puff INHALATION RT-Q6H PRN #1 inhaler PRN Reason: Shortness Of Breath Is patient prescribed a controlled substance at d/c from ED?: No Referrals: None,Stated [Primary Care Provider] - 1-2 days Miriam Arango MD [STAFF PHYSICIAN] - 1-2 days Time of Disposition: 13:07
[2019-01-30 14:06] VITALS: BP 114/83; PULSE 142; TEMP 100.4
== END 2019-01-30 14:00 | disposition home or self-care (01) ==
LOC: EC 10:55
DX: J10.1 Influenza due to other identified influenza virus with other respiratory manifestations (principal); F17.200 Nicotine dependence, unspecified, uncomplicated
CPT/HCPCS: 87502; 94640; 99284

== ENCOUNTER 2019-10-09 21:13 | Emergency (ER) | payer OTHER ==
[2019-10-09 21:17] VITALS: BP 125/85; RESP 20; TEMP 98.4
[2019-10-09] MEDS ORDERED: IPRATROPIUM-ALBUTEROL 3 ML NEB INHALATION STA (21:27)
--- NOTE | 2019-10-09 21:31 | ED ---
ENT HPI - General Chief complaint: ENT Stated complaint: sore throat Time Seen by Provider: 10/09/19 21:16 Source: patient Mode of arrival: ambulatory Limitations: no limitations - History of Present Illness Initial comments: Patient is a 24-year-old female presenting to the emergency department with a chief complaint of a cough. Patient reports she developed a productive cough about one week ago along with intermittent shortness of breath and wheezing. Patient denies chest pain. Patient reports she is also having a sore throat and bilateral otalgia. Patient reports she went to an urgent care twice and was prescribed steroids and antibiotics for otitis media. Patient reports she only took 7 days worth of the antibiotic twice a day. Patient reports the otalgia and sore throat has since decreased but she continues to have shortness of breath along with a cough. Patient also reports clear bilateral rhinorrhea. Patient does report chills but denies any fevers. Patient reports taking [id number] cold medicine without improvement. - Related Data Previous Rx's Medication Instructions Recorded Acetaminophen Tab [Tylenol Tab] 650 mg PO Q6H #20 tablet 01/30/19 Albuterol Inhaler [Ventolin Hfa 1 - 2 puff INHALATION RT-Q6H PRN 01/30/19 Inhaler] #1 inhaler Ibuprofen [Motrin] 600 mg PO Q8HR PRN #20 tab 01/30/19 Oseltamivir [Tamiflu] 75 mg PO DAILY #10 cap 01/30/19 methylPREDNISolone Dose Pack 4 mg PO DIRECTED #21 package 01/30/19 [Medrol Dose Pack] Albuterol Inhaler [Ventolin Hfa 1 - 2 puff INHALATION RT-Q6H PRN 10/09/19 Inhaler] #1 inhaler Amoxicillin/Potassium Clav 1 tab PO Q12HR #20 tab 10/09/19 [Augmentin 875-125 Tablet] Allergies Allergy/AdvReac Type Severity Reaction Status Date / Time No Known Allergies Allergy Verified 10/09/19 21:17 Review of Systems ROS Statement: Those systems with pertinent positive or pertinent negative responses have been documented in the HPI. ROS Other: All systems not noted in ROS Statement are negative. Past Medical History Past Medical History: Asthma, Musculoskeletal Disorder Additional Past Medical History / Comment(s): kidney stones, right hip " muscle rubs on the bone". hard of hearing in left ear. nearsighted. wears glasses History of Any Multi-Drug Resistant Organisms: None Reported Past Surgical History: No Surgical Hx Reported Additional Past Anesthesia/Blood Transfusion Reaction / Comment(s): no hx Past Psychological History: Bipolar Smoking Status: Current some day smoker Past Alcohol Use History: None Reported Past Drug Use History: Marijuana - Past Family History Father Additional Family Medical History / Comment(s): psychological history-, seizure, etoh hx Mother Family Medical History: Coronary Artery Disease (CAD), Thyroid Disorder Additional Family Medical History / Comment(s): diverticulitis, General Exam Limitations: no limitations General appearance: alert, in no apparent distress Head exam: Present: atraumatic, normocephalic, normal inspection Eye exam: Present: normal appearance, PERRL, EOMI Pupils: Present: normal accommodation ENT exam: Present: normal exam, normal oropharynx (No tonsillar enlargement or exudates), mucous membranes moist, TM's normal bilaterally, normal external ear exam Neck exam: Present: normal inspection, full ROM Respiratory exam: Present: normal lung sounds bilaterally. Absent: wheezes, rales Cardiovascular Exam: Present: regular rate, normal rhythm, normal heart sounds Extremities exam: Present: normal inspection, full ROM Back exam: Present: normal inspection, full ROM Neurological exam: Present: alert, oriented X3 Psychiatric exam: Present: normal affect, normal mood Skin exam: Present: warm, dry, intact, normal color Course Vital Signs 10/09/19 10/09/19 10/09/19 21:14 21:36 21:47 Temperature 98.4 F Pulse Rate 94 78 80 Respiratory 20 Rate Blood Pressure 125/85 O2 Sat by Pulse 99 Oximetry Medical Decision Making - Medical Decision Making Patient is 24-year-old female presenting to emergency Department with a chief complaint of cough. patient does not appear to be wheezing or retracting auscultation. Patient was given a DuoNeb treatment as she reports improvement in her symptoms. Chest x-ray is unremarkable. I suspect the patient to have bronchitis considering she does not have any fever. Patient is also complaining of bilateral otalgia and a sore throat. Patient is also complaining of posterior auricular tenderness. Physical examination does not show any signs of infection. Treatment patient prophylactically with Augmentin considering she never completely finished her amoxicillin regimen. Patient will be discharged with Augmentin and albuterol inhaler. Patient was to follow with primary care. Patient advised use [id number] Zyrtec for symptomatically relief. Strict return parameters were thoroughly discussed with patient was understanding and agreeable. Case discussed with physician. Disposition Clinical Impression: Bronchitis, Upper respiratory infection, viral Disposition: HOME SELF-CARE Condition: Stable Instructions (If sedation given, give patient instructions): Acute Bronchitis (ED) Additional Instructions: Please see prescribe medication as directed. Please follow with primary care. Please return to emergency department if symptoms worsen. Prescriptions: Amoxicillin/Potassium Clav [Augmentin 875-125 Tablet] 1 tab PO Q12HR #20 tab Albuterol Inhaler [Ventolin Hfa Inhaler] 1 - 2 puff INHALATION RT-Q6H PRN #1 inhaler PRN Reason: Shortness Of Breath Is patient prescribed a controlled substance at d/c from ED?: No Referrals: Zachariah Russell MD [Primary Care Provider] - 1-2 days Time of Disposition: 22:16
[2019-10-09 21:48] VITALS: PULSE 80
--- NOTE | 2019-10-09 22:00 | XR ---
EXAMINATION TYPE: XR chest 2V DATE OF EXAM: 10/09/2019 COMPARISON: NONE HISTORY: Chest pain TECHNIQUE: Frontal and lateral views of the chest are obtained. FINDINGS: There is no focal air space opacity. No evidence for pneumothorax. No pleural effusion. The cardiac silhouette size is within normal limits. The osseous structures are grossly intact. IMPRESSION: 1. No acute cardiopulmonary process.
== END 2019-10-09 22:39 | disposition home or self-care (01) ==
LOC: EC 21:13
DX: J40 Bronchitis, not specified as acute or chronic (principal); J06.9 Acute upper respiratory infection, unspecified; H92.03 Otalgia, bilateral; F17.200 Nicotine dependence, unspecified, uncomplicated; Z87.09 Personal history of other diseases of the respiratory system
CPT/HCPCS: 71046; 94640; 99283

== ENCOUNTER 2019-11-20 13:20 | Emergency (ER) | payer OTHER ==
--- NOTE | 2019-11-20 15:22 | XR ---
EXAMINATION TYPE: XR chest 2V DATE OF EXAM: 11/20/2019 COMPARISON: 10/09/2019 HISTORY: Cough and chest pain TECHNIQUE: Frontal and lateral views of the chest are obtained. FINDINGS: There is no focal air space opacity, pleural effusion, or pneumothorax seen. The cardiac silhouette size is within normal limits. The osseous structures are intact. IMPRESSION: No acute cardiopulmonary process.
--- NOTE | 2019-11-20 15:34 | ED ---
URI HPI - General Chief Complaint: Upper Respiratory Infection Stated Complaint: SOB, neck pain Time Seen by Provider: 11/20/19 15:23 Source: patient Mode of arrival: ambulatory Limitations: no limitations - History of Present Illness Initial Comments: Patient is a 24-year-old female presenting to emergency Department with complaints of a cough, headache, body aches for 3 days. Patient has history of mild asthma. Patient does have inhalers at home. She states she has been trying to take Tylenol and Motrin for her headache without improvement. Patient has no other pertinent past medical history. She denies fever, chills, nausea, vomiting, diarrhea, belly pain. Patient is no other complaints at this time. Upon arrival to the ER, her vital signs are stable. - Related Data Previous Rx's Medication Instructions Recorded Acetaminophen Tab [Tylenol Tab] 650 mg PO Q6H #20 tablet 01/30/19 Albuterol Inhaler [Ventolin Hfa 1 - 2 puff INHALATION RT-Q6H PRN 01/30/19 Inhaler] #1 inhaler Ibuprofen [Motrin] 600 mg PO Q8HR PRN #20 tab 01/30/19 Oseltamivir [Tamiflu] 75 mg PO DAILY #10 cap 01/30/19 methylPREDNISolone Dose Pack 4 mg PO DIRECTED #21 package 01/30/19 [Medrol Dose Pack] Albuterol Inhaler [Ventolin Hfa 1 - 2 puff INHALATION RT-Q6H PRN 10/09/19 Inhaler] #1 inhaler Amoxicillin/Potassium Clav 1 tab PO Q12HR #20 tab 10/09/19 [Augmentin 875-125 Tablet] Oseltamivir [Tamiflu] 75 mg PO Q12HR #10 cap 11/20/19 methylPREDNISolone [Medrol Dose 4 mg PO DIRECTED #1 pack 11/20/19 Pack] Allergies Allergy/AdvReac Type Severity Reaction Status Date / Time No Known Allergies Allergy Verified 11/20/19 14:36 Review of Systems ROS Statement: Those systems with pertinent positive or pertinent negative responses have been documented in the HPI. ROS Other: All systems not noted in ROS Statement are negative. Past Medical History Past Medical History: Asthma, Musculoskeletal Disorder Additional Past Medical History / Comment(s): kidney stones, right hip " muscle rubs on the bone". hard of hearing in left ear. nearsighted. wears glasses History of Any Multi-Drug Resistant Organisms: None Reported Past Surgical History: No Surgical Hx Reported Additional Past Anesthesia/Blood Transfusion Reaction / Comment(s): no hx Past Psychological History: Bipolar Smoking Status: Current some day smoker Past Alcohol Use History: None Reported Past Drug Use History: Marijuana - Past Family History Father Additional Family Medical History / Comment(s): psychological history-, seizure, etoh hx Mother Family Medical History: Coronary Artery Disease (CAD), Thyroid Disorder Additional Family Medical History / Comment(s): diverticulitis, General Exam - General Exam Comments Initial Comments: GENERAL: Patient appears disheveled and fatigue.. HEAD: Atraumatic, normocephalic. EYES: Pupils equal round and reactive to light, extraocular movements intact, sclera anicteric, conjunctiva are normal. ENT: TMs normal, nares patent, oropharynx clear without exudates. Moist mucous membranes. NECK: Normal range of motion, supple without lymphadenopathy or JVD. LUNGS: Breath sounds clear to auscultation bilaterally and equal. No wheezes rales or rhonchi. HEART: Regular rate and rhythm without murmurs, rubs or gallops. ABDOMEN: Soft, nontender, normoactive bowel sounds. No guarding, no rebound. No masses appreciated. : Deferred EXTREMITIES: Normal range of motion, no pitting or edema. No clubbing or cyanosis. NEUROLOGICAL: Normal speech, normal gait. PSYCH: Normal mood, normal affect. SKIN: Warm, Dry, normal turgor, no rashes or lesions noted. Limitations: no limitations Course Vital Signs 11/20/19 11/20/19 11/20/19 14:34 15:36 16:04 Temperature 98.7 F 98.7 F 98.4 F Pulse Rate 99 89 89 Respiratory 20 19 19 Rate Blood Pressure 129/87 118/85 118/85 O2 Sat by Pulse 97 97 97 Oximetry Medical Decision Making - Medical Decision Making Patient is a 24-year-old female presenting with cough, congestion, headache 3 days. Vital signs are stable. Influenza B is positive, no acute findings and chest x-ray. I discussed these findings with the patient. Patient will be started on Tamiflu as well as given steroid Dosepak. She is stable for dischar at this time. Patient is in agreement with this plan of care. Return parameters were discussed with the patient she verbalized understanding. She will continue with Motrin or Tylenol for pain relief. Case discussed with Dr. Santiago. - Lab Data Lab Results 11/20/19 Range/Units 14:35 Influenza Type A RNA Not Detected (Not Detectd) Influenza Type B (PCR) Detected H (Not Detectd) Disposition Clinical Impression: Cough, Influenza Disposition: HOME SELF-CARE Condition: Stable Instructions (If sedation given, give patient instructions): Influenza (ED) Additional Instructions: Please return to the Emergency Department if symptoms worsen or any other concerns. Take prescriptions as prescribed. Use inhalers as needed for cough. Prescriptions: methylPREDNISolone [Medrol Dose Pack] 4 mg PO DIRECTED #1 pack Oseltamivir [Tamiflu] 75 mg PO Q12HR #10 cap Is patient prescribed a controlled substance at d/c from ED?: No Referrals: None,Stated [Primary Care Provider] - 1-2 days
[2019-11-20 16:04] VITALS: BP 118/85; PULSE 89; RESP 19
[2019-11-20 16:05] VITALS: TEMP 98.4
== END 2019-11-20 15:53 | disposition home or self-care (01) ==
LOC: EC 13:20
DX: J10.1 Influenza due to other identified influenza virus with other respiratory manifestations (principal); F17.200 Nicotine dependence, unspecified, uncomplicated; Z87.09 Personal history of other diseases of the respiratory system
CPT/HCPCS: 71046; 87502; 99285

== ENCOUNTER 2019-12-27 09:59 | Emergency (ER) | payer OTHER ==
[2019-12-27] MEDS ORDERED: SODIUM CHLORIDE 0.9% 2,000 ML IV STA (10:51)
[2019-12-27] MEDS ORDERED: ONDANSETRON 4 MG/2 ML VIAL IVP STA (10:51)
--- NOTE | 2019-12-27 10:56 | ED ---
Nausea/Vomiting/Diarrhea HPI - General Chief complaint: Nausea/Vomiting/Diarrhea Stated complaint: vomiting Time Seen by Provider: 12/27/19 10:24 Source: patient, RN notes reviewed Mode of arrival: ambulatory Limitations: no limitations - History of Present Illness Initial comments: This a 24-year-old female presents emergency Department chief complaint nausea vomiting in . Patient states she feels dehydrated. Patient states this has been going on since 2017 when she had her first . 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 She states that nobody believes her states that her primary told her see her [employer]. Patient states she discussed this with her [employer] told her to try some home remedies. S he states that is not helping. Patient recently found out she is again has been in contact with her [employer] doctor Denis who has not given her any medications. Patient states that she needs nausea meds she states that she has reaction to Reglan and wants Zofran at this time. She states that she's had some spotting no significant bleeding. She states she feels dehydrated and that she cannot tolerate living like this. She has never seen a GI physician she has not had any EGDs colonoscopies. Patient reports no fevers or chills. - Related Data Home Medications Medication Instructions Recorded Confirmed Pnv,Calcium 72/Iron/Folic Acid 1 tab PO DAILY 12/27/19 12/27/19 [ Plus Tablet] Previous Rx's Medication Instructions Recorded Cephalexin [Keflex] 500 mg PO Q8HR #21 cap 12/27/19 Allergies Allergy/AdvReac Type Severity Reaction Status Date / Time No Known Allergies Allergy Verified 12/27/19 11:52 Review of Systems ROS Statement: Those systems with pertinent positive or pertinent negative responses have been documented in the HPI. ROS Other: All systems not noted in ROS Statement are negative. Past Medical History Past Medical History: Asthma, Musculoskeletal Disorder Additional Past Medical History / Comment(s): kidney stones, right hip " muscle rubs on the bone". hard of hearing in left ear. nearsighted. wears glasses History of Any Multi-Drug Resistant Organisms: None Reported Past Surgical History: No Surgical Hx Reported Additional Past Anesthesia/Blood Transfusion Reaction / Comment(s): no hx Past Psychological History: Bipolar Smoking Status: Current some day smoker Past Alcohol Use History: None Reported Past Drug Use History: Marijuana - Past Family History Father Additional Family Medical History / Comment(s): psychological history-, seizure, etoh hx Mother Family Medical History: Coronary Artery Disease (CAD), Thyroid Disorder Additional Family Medical History / Comment(s): diverticulitis, General Exam Limitations: no limitations General appearance: alert, in no apparent distress, other (Patient is crying throughout the exam, agitated) Head exam: Present: atraumatic, normocephalic, normal inspection Eye exam: Present: normal appearance, PERRL, EOMI. Absent: scleral icterus, conjunctival injection, periorbital swelling ENT exam: Present: normal exam, normal oropharynx, mucous membranes moist Neck exam: Present: normal inspection. Absent: tenderness, meningismus, lymphadenopathy Respiratory exam: Present: normal lung sounds bilaterally. Absent: respiratory distress, wheezes, rales, rhonchi, stridor Cardiovascular Exam: Present: regular rate, normal rhythm, normal heart sounds. Absent: systolic murmur, diastolic murmur, rubs, gallop, clicks GI/Abdominal exam: Present: soft, tenderness (Mild diffuse tenderness but), normal bowel sounds. Absent: distended, guarding, rebound, rigid Back exam: Absent: CVA tenderness (R), CVA tenderness (L) Neurological exam: Present: alert Skin exam: Present: warm, dry, intact, normal color. Absent: rash Course Vital Signs 12/27/19 10:14 Temperature 98.0 F Pulse Rate 75 Respiratory 16 Rate Blood Pressure 138/93 O2 Sat by Pulse 99 Oximetry - Reevaluation(s) Reevaluation #1: 12/27/19 10:54 During my assessment and exam patient became agitated, angry's demanding patient to be transferred to a better facility that will keep her long-term for IV fluids. I did explain that we need to assess labs, urinalysis for possible signs of dehydration and to possibly discuss this with her [employer]. Reevaluation #2: 12/27/19 10:55 I did recommend K[facility] Griggs for her nausea states that she cannot have this because it makes her anxious she understands the risk of receiving Zofran at this time. Reevaluation #3: 12/27/19 12:44 Patient updated on ultrasound results, urinalysis and labs. Patient was given 2 L of fluid she states she feels greatly improved. Patient has an appointment with her [employer] and 45 minutes of be discharged patient was given Rocephin. Medical Decision Making - Medical Decision Making Patient presented for nausea vomiting concern for possible dehydration ketones are negative patient was given 2 L of fluid, feels greatly improved given Rocephin for underlying urinary tract infection will be discharged and Keflex patient has an appointment in 45 minutes with her [employer] will she'll be d ischarged in stable condition with close follow-up. Patient will be provided GI physician for ongoing nausea vomiting. - Lab Data Result diagrams: 12/27/19 10:32 12/27/19 10:32 Lab Results 12/27/19 12/27/19 12/27/19 Range/Units 10:32 10:32 10:32 WBC 10.6 (3.8-10.6) k/uL RBC 5.15 (3.80-5.40) m/uL Hgb 14.7 (11.4-16.0) gm/dL Hct 44.3 (34.0-46.0) % MCV 86.1 (80.0-100.0) fL MCH 28.6 (25.0-35.0) pg MCHC 33.2 (31.0-37.0) g/dL RDW 14.3 (11.5-15.5) % Plt Count 374 (150-450) k/uL Neutrophils % 61 % Lymphocytes % 31 % Monocytes % 4 % Eosinophils % 1 % Basophils % 1 % Neutrophils # 6.5 (1.3-7.7) k/uL Lymphocytes # 3.3 (1.0-4.8) k/uL Monocytes # 0.4 (0-1.0) k/uL Eosinophils # 0.1 (0-0.7) k/uL Basophils # 0.1 (0-0.2) k/uL Sodium 140 (137-145) mmol/L Potassium 4.2 (3.5-5.1) mmol/L Chloride 107 (98-107) mmol/L Carbon Dioxide 22 (22-30) mmol/L Anion Gap 11 mmol/L BUN 8 (7-17) mg/dL Creatinine 0.78 (0.52-1.04) mg/dL Est GFR (CKD-EPI)AfAm >90 (>60 ml/min/1.73 sqM) Est GFR (CKD-EPI)NonAf >90 (>60 ml/min/1.73 sqM) Glucose 101 H (74-99) mg/dL Calcium 9.8 (8.4-10.2) mg/dL Total Bilirubin 0.5 (0.2-1.3) mg/dL AST 18 (14-36) U/L ALT 17 (4-34) U/L Alkaline Phosphatase 70 (38-126) U/L Total Protein 7.7 (6.3-8.2) g/dL Albumin 4.6 (3.5-5.0) g/dL Lipase 101 (23-300) U/L HCG, Quant 05900.7 mIU/mL Urine Color Urine Appearance (Clear) Urine pH (5.0-8.0) Ur Specific Junction (1.001-1.035) Urine Protein (Negative) Urine Glucose (UA) (Negative) Urine Ketones (Negative) Urine Blood (Negative) Urine Nitrite (Negative) Urine Bilirubin (Negative) Urine Urobilinogen (<2.0) mg/dL Ur Leukocyte Esterase (Negative) Urine RBC (0-5) /hpf Urine WBC (0-5) /hpf Ur Squamous Epith Cells (0-4) /hpf Urine Bacteria (None) /hpf Urine Mucus (None) /hpf Blood Type B Positive Blood Type Recheck B Pos Bld Type Recheck Status No 12/27/19 Range/Units 10:32 WBC (3.8-10.6) k/uL RBC (3.80-5.40) m/uL Hgb (11.4-16.0) gm/dL Hct (34.0-46.0) % MCV (80.0-100.0) fL MCH (25.0-35.0) pg MCHC (31.0-37.0) g/dL RDW (11.5-15.5) % Plt Count (150-450) k/uL Neutrophils % % Lymphocytes % % Monocytes % % Eosinophils % % Basophils % % Neutrophils # (1.3-7.7) k/uL Lymphocytes # (1.0-4.8) k/uL Monocytes # (0-1.0) k/uL Eosinophils # (0-0.7) k/uL Basophils # (0-0.2) k/uL Sodium (137-145) mmol/L Potassium (3.5-5.1) mmol/L Chloride (98-107) mmol/L Carbon Dioxide (22-30) mmol/L Anion Gap mmol/L BUN (7-17) mg/dL Creatinine (0.52-1.04) mg/dL Est GFR (CKD-EPI)AfAm (>60 ml/min/1.73 sqM) Est GFR (CKD-EPI)NonAf (>60 ml/min/1.73 sqM) Glucose (74-99) mg/dL Calcium (8.4-10.2) mg/dL Total Bilirubin (0.2-1.3) mg/dL AST (14-36) U/L ALT (4-34) U/L Alkaline Phosphatase (38-126) U/L Total Protein (6.3-8.2) g/dL Albumin (3.5-5.0) g/dL Lipase (23-300) U/L HCG, Quant mIU/mL Urine Color Yellow Urine Appearance Cloudy H (Clear) Urine pH 6.0 (5.0-8.0) Ur Specific Junction 1.021 (1.001-1.035) Urine Protein Trace H (Negative) Urine Glucose (UA) Negative (Negative) Urine Ketones Negative (Negative) Urine Blood Negative (Negative) Urine Nitrite Positive H (Negative) Urine Bilirubin Negative (Negative) Urine Urobilinogen <2.0 (<2.0) mg/dL Ur Leukocyte Esterase Small H (Negative) Urine RBC 1 (0-5) /hpf Urine WBC 19 H (0-5) /hpf Ur Squamous Epith Cells 9 H (0-4) /hpf Urine Bacteria Many H (None) /hpf Urine Mucus Few H (None) /hpf Blood Type Blood Type Recheck Bld Type Recheck Status Disposition Clinical Impression: Nausea & vomiting, , UTI (urinary tract infection) Disposition: HOME SELF-CARE Condition: Stable Instructions (If sedation given, give patient instructions): Acute Nausea and Vomiting (ED) Additional Instructions: Please return to the Emergency Department if symptoms worsen or any other conc erns. Prescriptions: Cephalexin [Keflex] 500 mg PO Q8HR #21 cap Is patient prescribed a controlled substance at d/c from ED?: No Referrals: Jarrod Burch MD [STAFF PHYSICIAN] - 1-2 days Joann Barrios DO [Doctor of Osteopathic Medicine] - 1-2 days Time of Disposition: 12:45
[2019-12-27 11:11] LABS: Basophils # (A) 0.1 k/uL (0-0.2); Basophils % (A) 1 %; Eosinophils # (A) 0.1 k/uL (0-0.7); Eosinophils % (A) 1 %; HCT 44.3 % (34.0-46.0); HGB 14.7 gm/dL (11.4-16.0); Lymphocytes # (A) 3.3 k/uL (1.0-4.8); Lymphocytes % (A) 31 %; MCH 28.6 pg (25.0-35.0); MCHC 33.2 g/dL (31.0-37.0); MCV 86.1 fL (80.0-100.0); Mean Platelet Volume 7.5; Monocytes # (A) 0.4 k/uL (0-1.0); Monocytes % (A) 4 %; Neutrophils # (A) 6.5 k/uL (1.3-7.7); Neutrophils % (A) 61 %; Platelet Count 374 k/uL (150-450); RBC 5.15 m/uL (3.80-5.40); RDW 14.3 % (11.5-15.5); WBC 10.6 k/uL (3.8-10.6)
[2019-12-27 11:20] LABS: Appearance,Urine Cloudy (Clear); Bacteria,Urine Many /hpf; Bilirubin,Urine Negative (Negative); Blood,Urine Negative (Negative); Color,Urine Yellow; Glucose,Urine (UA) Negative (Negative); Ketones,Urine Negative (Negative); Leukocyte Esterase,Urine Small (Negative); Mucus,Urine Few /hpf; Nitrite,Urine Positive (Negative); Potassium 4.2 mmol/L (3.5-5.1); Protein,Urine Trace (Negative); RBC,Urine 1 /hpf (0-5); Specific Gravity,Urine 1.021 (1.001-1.035); Squamous Epithelial Cell,Urine 9 /hpf (0-4); Urobilinogen,Urine <2.0 mg/dL (<2.0); WBC,Urine 19 /hpf (0-5)
[2019-12-27 11:21] LABS: ALT 17 U/L (4-34); AST 18 U/L (14-36); African American GFR (CKD) >90 (>60 ml/min/1.73 sqM); Albumin 4.6 g/dL (3.5-5.0); Alkaline Phosphatase 70 U/L (38-126); Anion Gap 11 mmol/L; Blood Urea Nitrogen 8 mg/dL (7-17); Calcium 9.8 mg/dL (8.4-10.2); Carbon Dioxide 22 mmol/L (22-30); Chloride 107 mmol/L (98-107); Glucose 101 mg/dL (74-99); Non-African American GFR(CKD) >90 (>60 ml/min/1.73 sqM); Sodium 140 mmol/L (137-145); Total Bilirubin 0.5 mg/dL (0.2-1.3); Total Protein 7.7 g/dL (6.3-8.2)
[2019-12-27] MEDS ORDERED: cefTRIAXone IN SWFI 1,000 MG/10 ML SYRINGE IVP STA (11:27)
[2019-12-27] MEDS ORDERED: ACETAMINOPHEN TAB 325 MG TAB PO STA (11:49)
--- NOTE | 2019-12-27 11:53 | US ---
EXAMINATION TYPE: Transabdominal DATE OF EXAM: 12/27/2019 11:25 AM COMPARISON: NONE CLINICAL HISTORY: pain. EXAM PERFORMED: Transabdominal (TA) EXAM MEASUREMENTS: GESTATIONAL AGE / DATING Physician Established: Not yet established Dates by LMP: LMP unknown Dates by First Scan: No previous this is first scan Dates by Current Scan for: (5 weeks/6 days) EDC: 08/22/20 MATERNAL ANATOMY Uterus: 8.2 x 5.4 x 6.7cm Right Ovary: 1.8 x 1.3 x 1.5cm Left Ovary: 3.0 x 1.9 x 1.6cm Post CDS / Adnexa: wnl Presence of free fluid: no GESTATION / SURVEY CRL: 0.3cm (5 weeks/6 days) Yolk Sac (normal less than 6mm): 2mm Heart Rate: 131 bpm Rhythm: normal IUP: Live IUP Date of LMP: patient unsure Beta HcG (if available): Not available at this time IMPRESSION: Single live intrauterine with a sonographic age of 5 weeks and 6 days and estimated date of delivery of 08/22/2020. Heart rate is within normal limits at 131 bpm.
[2019-12-27 12:06] LABS: HCG,Quantitative Serum 58583.7 mIU/mL
[2019-12-27 13:04] VITALS: BP 126/91; PULSE 61; RESP 18; TEMP 98.3
[2019-12-27 13:07] LABS: Cocaine Screen,Urine Not Detected (NotDetected); Opiate Screen,Urine Not Detected (NotDetected); Phencyclidine Screen,Urine Not Detected (NotDetected)
[2019-12-27 13:08] LABS: Amphetamine Screen,Urine Not Detected (NotDetected); Barbiturate Screen,Urine Not Detected (NotDetected); Benzodiazepines Screen,Urine Not Detected (NotDetected); Methadone Screen, Urine Not Detected (NotDetected); Oxycodone Screen, Urine Not Detected (NotDetected); Tricyclic Antidepressant,Urine Not Detected (NotDetected); Urn Cannabinoid Scrn Detected (NotDetected)
== END 2019-12-27 13:00 | disposition home or self-care (01) ==
LOC: EC 09:59
DX: O23.41 Unspecified infection of urinary tract in pregnancy, first trimester (principal); O21.9 Vomiting of pregnancy, unspecified; O99.341 Other mental disorders complicating pregnancy, first trimester; R45.1 Restlessness and agitation; O99.331 Smoking (tobacco) complicating pregnancy, first trimester; F17.200 Nicotine dependence, unspecified, uncomplicated; Z87.442 Personal history of urinary calculi; Z3A.01 Less than 8 weeks gestation of pregnancy
CPT/HCPCS: 96374; 96375; 96361 ×3; 99284; 36415; 86900; 86901; 80053; 83690; 85025; 81001; 84702; 80306; 87086; 76801; J2405; J0696; 87077; 87186

== ENCOUNTER 2019-12-28 09:24 | Emergency (ER) | payer OTHER ==
[2019-12-28 09:32] VITALS: RESP 18
[2019-12-28] MEDS ORDERED: SODIUM CHLORIDE 0.9% 1,000 ML IV STA (10:36)
[2019-12-28] MEDS ORDERED: METOCLOPRAMIDE 5 MG/ML 2 ML VIAL IVP STA (10:36)
[2019-12-28] MEDS ORDERED: diphenhydrAMINE 50 MG/ML 1 ML VIAL IVP STA (10:37)
[2019-12-28 11:31] LABS: Basophils % (A) 0 %; Eosinophils # (A) 0.1 k/uL (0-0.7); Eosinophils % (A) 1 %; HCT 40.2 % (34.0-46.0); HGB 13.5 gm/dL (11.4-16.0); Lymphocytes # (A) 0.9 k/uL (1.0-4.8); Lymphocytes % (A) 11 %; MCHC 33.7 g/dL (31.0-37.0); MCV 86.2 fL (80.0-100.0); Mean Platelet Volume 7.5; Monocytes # (A) 0.2 k/uL (0-1.0); Monocytes % (A) 2 %; Neutrophils # (A) 7.2 k/uL (1.3-7.7); Neutrophils % (A) 85 %; Platelet Count 277 k/uL (150-450); RBC 4.67 m/uL (3.80-5.40); RDW 14.5 % (11.5-15.5); WBC 8.6 k/uL (3.8-10.6)
[2019-12-28 11:48] LABS: ALT 17 U/L (4-34); AST 20 U/L (14-36); African American GFR (CKD) >90 (>60 ml/min/1.73 sqM); Albumin 4.5 g/dL (3.5-5.0); Alkaline Phosphatase 74 U/L (38-126); Anion Gap 12 mmol/L; Blood Urea Nitrogen 7 mg/dL (7-17); Calcium 9.7 mg/dL (8.4-10.2); Carbon Dioxide 21 mmol/L (22-30); Chloride 107 mmol/L (98-107); Glucose 116 mg/dL (74-99); Non-African American GFR(CKD) >90 (>60 ml/min/1.73 sqM); Potassium 3.9 mmol/L (3.5-5.1); Sodium 140 mmol/L (137-145); Total Bilirubin 0.7 mg/dL (0.2-1.3); Total Protein 7.8 g/dL (6.3-8.2)
[2019-12-28 12:31] VITALS: BP 112/78; PULSE 78
[2019-12-28 12:48] LABS: Appearance,Urine Clear (Clear); Bilirubin,Urine Negative (Negative); Blood,Urine Negative (Negative); Color,Urine Yellow; Glucose,Urine (UA) Negative (Negative); Ketones,Urine 4+ (Negative); Leukocyte Esterase,Urine Negative (Negative); Nitrite,Urine Negative (Negative); Protein,Urine Trace (Negative); Specific Gravity,Urine 1.024 (1.001-1.035); Urobilinogen,Urine <2.0 mg/dL (<2.0)
--- NOTE | 2019-12-28 12:51 | ED ---
Abdominal Pain HPI - General Chief Complaint: Abdominal Pain Stated Complaint: pain, N/V Time Seen by Provider: 12/28/19 09:30 Source: patient Mode of arrival: ambulatory Limitations: no limitations - History of Present Illness Initial Comments: The patient is a 24-year-old female past history of kidney stones who presents to the emergency department with reported nausea and vomiting. The patient was seen in the emergency room yesterday for similar. She states that she is currently 5 weeks . She does have a long-standing history of nausea and vomiting however since she got and has become worse. She states that she is and is following with Dr. Barrios. Dr. Barrios saw her in office yesterday. After she left she came in to the emergency room for evaluation. Laboratory studies were obtained as well as a urinalysis and an ultrasound. Review of these laboratory studies demonstrated a urinary tract infection. The patient was placed on Keflex and sent home. She presents today stating that she lost her prescription for her antiemetic. She did not have her insurance information pharmacy. She continued to have vomiting overnight with inability to tolerate any by mouth intake. She denies any lower pelvic abdominal pain. No vaginal bleeding or discharge. No concern for such transmitted infections. No fevers or chills. No other alleviating, precipitating or modifying factors - Related Data Home Medications Medication Instructions Recorded Confirmed Pnv,Calcium 72/Iron/Folic Acid 1 tab PO DAILY 12/27/19 12/29/19 [ Plus Tablet] Previous Rx's Medication Instructions Recorded Cephalexin [Keflex] 500 mg PO Q8HR #21 cap 12/27/19 Metoclopramide [Reglan] 10 mg PO TID PRN #40 tab 12/28/19 Citalopram Hydrobromide [CeleXA] 10 mg PO DAILY #30 tab 01/01/20 Famotidine [Pepcid] 20 mg PO BID #60 tablet 01/01/20 Allergies Allergy/AdvReac Type Severity Reaction Status Date / Time No Known Allergies Allergy Verified 12/29/19 11:29 Review of Systems ROS Statement: Those systems with pertinent positive or pertinent negative responses have been documented in the HPI. ROS Other: All systems not noted in ROS Statement are negative. Past Medical History Past Medical History: Asthma, Musculoskeletal Disorder Additional Past Medical History / Comment(s): kidney stones, right hip " muscle rubs on the bone". hard of hearing in left ear. nearsighted. wears glasses History of Any Multi-Drug Resistant Organisms: None Reported Past Surgical History: No Surgical Hx Reported Additional Past Anesthesia/Blood Transfusion Reaction / Comment(s): no hx Past Psychological History: Bipolar Smoking Status: Current some day smoker Past Alcohol Use History: None Reported Past Drug Use History: Marijuana - Past Family History Father Additional Family Medical History / Comment(s): psychological history-, seizure, etoh hx Mother Family Medical History: Coronary Artery Disease (CAD), Thyroid Disorder Additional Family Medical History / Comment(s): diverticulitis, General Exam Limitations: no limitations General appearance: alert, in no apparent distress Head exam: Present: atraumatic, normocephalic, normal inspection Eye exam: Present: normal appearance, PERRL, EOMI. Absent: scleral icterus, conjunctival injection, periorbital swelling ENT exam: Present: normal exam, mucous membranes moist Neck exam: Present: normal inspection. Absent: tenderness, meningismus, lymphadenopathy Respiratory exam: Present: normal lung sounds bilaterally. Absent: respiratory distress, wheezes, rales, rhonchi, stridor Cardiovascular Exam: Present: regular rate, normal rhythm, normal heart sounds. Absent: systolic murmur, diastolic murmur, rubs, gallop, clicks GI/Abdominal exam: Present: soft, normal bowel sounds. Absent: distended, tenderness, guarding, rebound, rigid Extremities exam: Present: normal inspection, full ROM, normal capillary refill. Absent: tenderness, pedal edema, joint swelling, calf tenderness Back exam: Present: normal inspection Neurological exam: Present: alert, oriented X3, CN II-XII intact Psychiatric exam: Present: normal affect, normal mood Skin exam: Present: warm, dry, intact, normal color. Absent: rash Course Vital Signs 12/28/19 12/28/19 09:29 12:30 Pulse Rate 89 78 Respiratory 18 18 Rate Blood Pressure 117/72 112/78 O2 Sat by Pulse 100 94 L Oximetry Medical Decision Making - Medical Decision Making Upon arrival the patient was placed into room 2. A thorough history and physical exam is performed. Peripheral IV was established. The patient was g iven a liter bolus of normal saline, 10 mg of Reglan and 25 mg of Benadryl. I did repeat laboratory studies. CBC and CMP are unremarkable urinalysis shows 4+ ketones. Beta Quant is 66,076. I reevaluated the patient she states she feels markedly better at this time and wanting to go home. I did review the patient's ultrasound from yesterday. Dr. Barrios is in the emergency department evaluating another patient when I did tell her about this patient. She does go in and evaluate the patient. She is requesting thyroid studies. At this time the patient will be discharged home to follow up with Dr. Barrios in office. She is hard is given for pelvic ultrasound. She does request that I provide her with 40 tablets of Reglan. The patient needs to take her antibiotic that was prescribed yesterday. She has any new or worsening symptoms return to the emergency room. Patient was in agreement treatment plan discharge in stable condition - Lab Data Result diagrams: 12/28/19 11:18 12/28/19 11:18 Lab Results 12/28/19 12/28/19 12/28/19 Range/Units 11:18 11:18 11:18 WBC 8.6 (3.8-10.6) k/uL RBC 4.67 (3.80-5.40) m/uL Hgb 13.5 (11.4-16.0) gm/dL Hct 40.2 (34.0-46.0) % MCV 86.2 (80.0-100.0) fL MCH 29.0 (25.0-35.0) pg MCHC 33.7 (31.0-37.0) g/dL RDW 14.5 (11.5-15.5) % Plt Count 277 (150-450) k/uL Neutrophils % 85 % Lymphocytes % 11 % Monocytes % 2 % Eosinophils % 1 % Basophils % 0 % Neutrophils # 7.2 (1.3-7.7) k/uL Lymphocytes # 0.9 L (1.0-4.8) k/uL Monocytes # 0.2 (0-1.0) k/uL Eosinophils # 0.1 (0-0.7) k/uL Basophils # 0.0 (0-0.2) k/uL Sodium 140 (137-145) mmol/L Potassium 3.9 (3.5-5.1) mmol/L Chloride 107 (98-107) mmol/L Carbon Dioxide 21 L (22-30) mmol/L Anion Gap 12 mmol/L BUN 7 (7-17) mg/dL Creatinine 0.61 (0.52-1.04) mg/dL Est GFR (CKD-EPI)AfAm >90 (>60 ml/min/1.73 sqM) Est GFR (CKD-EPI)NonAf >90 (>60 ml/min/1.73 sqM) Glucose 116 H (74-99) mg/dL Calcium 9.7 (8.4-10.2) mg/dL Total Bilirubin 0.7 (0.2-1.3) mg/dL AST 20 (14-36) U/L ALT 17 (4-34) U/L Alkaline Phosphatase 74 (38-126) U/L Total Protein 7.8 (6.3-8.2) g/dL Albumin 4.5 (3.5-5.0) g/dL Lipase 81 (23-300) U/L TSH 0.367 L (0.465-4.680) mIU/L Free T4 1.45 (0.78-2.19) ng/dL HCG, Quant 42786.5 mIU/mL Urine Color Urine Appearance (Clear) Urine pH (5.0-8.0) Ur Specific [place] (1.001-1.035) Urine Protein (Negative) Urine Glucose (UA) (Negative) Urine Ketones (Negative) Urine Blood (Negative) Urine Nitrite (Negative) Urine Bilirubin (Negative) Urine Urobilinogen (<2.0) mg/dL Ur Leukocyte Esterase (Negative) 12/28/19 Range/Units 12:33 WBC (3.8-10.6) k/uL RBC (3.80-5.40) m/uL Hgb (11.4-16.0) gm/dL Hct (34.0-46.0) % MCV (80.0-100.0) fL MCH (25.0-35.0) pg MCHC (31.0-37.0) g/dL RDW (11.5-15.5) % Plt Count (150-450) k/uL Neutrophils % % Lymphocytes % % Monocytes % % Eosinophils % % Basophils % % Neutrophils # (1.3-7.7) k/uL Lymphocytes # (1.0-4.8) k/uL Monocytes # (0-1.0) k/uL Eosinophils # (0-0.7) k/uL Basophils # (0-0.2) k/uL Sodium (137-145) mmol/L Potassium (3.5-5.1) mmol/L Chloride (98-107) mmol/L Carbon Dioxide (22-30) mmol/L Anion Gap mmol/L BUN (7-17) mg/dL Creatinine (0.52-1.04) mg/dL Est GFR (CKD-EPI)AfAm (>60 ml/min/1.73 sqM) Est GFR (CKD-EPI)NonAf (>60 ml/min/1.73 sqM) Glucose (74-99) mg/dL Calcium (8.4-10.2) mg/dL Total Bilirubin (0.2-1.3) mg/dL AST (14-36) U/L ALT (4-34) U/L Alkaline Phosphatase (38-126) U/L Total Protein (6.3-8.2) g/dL Albumin (3.5-5.0) g/dL Lipase (23-300) U/L TSH (0.465-4.680) mIU/L Free T4 (0.78-2.19) ng/dL HCG, Quant mIU/mL Urine Color Yellow Urine Appearance Clear (Clear) Urine pH 8.0 (5.0-8.0) Ur Specific [place] 1.024 (1.001-1.035) Urine Protein Trace H (Negative) Urine Glucose (UA) Negative (Negative) Urine Ketones 4+ H (Negative) Urine Blood Negative (Negative) Urine Nitrite Negative (Negative) Urine Bilirubin Negative (Negative) Urine Urobilinogen <2.0 (<2.0) mg/dL Ur Leukocyte Esterase Negative (Negative) Disposition Clinical Impression: Nausea and vomiting, Disposition: HOME SELF-CARE Condition: Stable Instructions (If sedation given, give patient instructions): Nausea and Vomiting in (ED) Additional Instructions: Please follow up with Dr. Barrios. Return to the emergency room for any worsening symptoms Prescriptions: Metoclopramide [Reglan] 10 mg PO TID PRN #40 tab PRN Reason: Nausea Is patient prescribed a controlled substance at d/c from ED?: No Referrals: None,Stated [Primary Care Provider] - 1-2 days Joann Barrios DO [Doctor of Osteopathic Medicine] - 1-2 days Time of Disposition: 12:54
[2019-12-28 13:36] LABS: HCG,Quantitative Serum 66076.5 mIU/mL
[2019-12-28 14:04] LABS: T4, Free (Free Thyroxine) 1.45 ng/dL (0.78-2.19)
== END 2019-12-28 13:14 | disposition home or self-care (01) ==
LOC: EC 09:24
DX: O21.8 Other vomiting complicating pregnancy (principal); O26.831 Pregnancy related renal disease, first trimester; R82.4 Acetonuria; O99.89 Other specified diseases and conditions complicating pregnancy, childbirth and the puerperium; R10.9 Unspecified abdominal pain; O99.331 Smoking (tobacco) complicating pregnancy, first trimester; F17.200 Nicotine dependence, unspecified, uncomplicated; Z3A.01 Less than 8 weeks gestation of pregnancy
CPT/HCPCS: 99284; 96374; 96375; 96361; 36415; 84439; 80053; 84443; 83690; 85025; 81003; 84702; J1200; J2765

== ENCOUNTER 2019-12-29 11:23 | Emergency (ER) | payer OTHER ==
[2019-12-29 11:29] VITALS: BP 113/67; PULSE 65; RESP 18; TEMP 97.7
--- NOTE | 2019-12-29 11:56 | ED ---
General Adult HPI - General Chief complaint: Nausea/Vomiting/Diarrhea Stated complaint: 6wks preg, vomiting Time Seen by Provider: 12/29/19 11:30 Source: patient, RN notes reviewed, old records reviewed Mode of arrival: ambulatory Limitations: no limitations - History of Present Illness Initial comments: This a 24-year-old female who comes in the emergency department and is and she has been vomiting for a week. Patient states been to the ER twice before and every time she was home she continues to vomit. Patient states she again was unable to keep anything down today even her anti-vomiting medications. Patient denies any fever chills. Patient states she does not have abdominal pain. Patient denies any chest pain or difficulty breathing or shortness of breath. Patient states she feels very fatigued has not been able to eat. - Related Data Home Medications Medication Instructions Recorded Confirmed Pnv,Calcium 72/Iron/Folic Acid 1 tab PO DAILY 12/27/19 12/28/19 [ Plus Tablet] Previous Rx's Medication Instructions Recorded Cephalexin [Keflex] 500 mg PO Q8HR #21 cap 12/27/19 Metoclopramide [Reglan] 10 mg PO TID PRN #40 tab 12/28/19 Allergies Allergy/AdvReac Type Severity Reaction Status Date / Time No Known Allergies Allergy Verified 12/29/19 11:29 Review of Systems ROS Statement: Those systems with pertinent positive or pertinent negative responses have been documented in the HPI. ROS Other: All systems not noted in ROS Statement are negative. Past Medical History Past Medical History: Asthma, Musculoskeletal Disorder Additional Past Medical History / Comment(s): kidney stones, right hip " muscle rubs on the bone". hard of hearing in left ear. nearsighted. wears glasses History of Any Multi-Drug Resistant Organisms: None Reported Past Surgical History: No Surgical Hx Reported Additional Past Anesthesia/Blood Transfusion Reaction / Comment(s): no hx Past Psychological History: Bipolar Smoking Status: Current some day smoker Past Alcohol Use History: None Reported Past Drug Use History: Marijuana - Past Family History Father Additional Family Medical History / Comment(s): psychological history-, seizure, etoh hx Mother Family Medical History: Coronary Artery Disease (CAD), Thyroid Disorder Additional Family Medical History / Comment(s): diverticulitis, General Exam - General Exam Comments Initial Comments: GENERAL: Patient is well-developed and well-nourished. Patient looks patient appears in mild distress PSYCHIATRIC: Patient is very angry Limitations: no limitations Course Vital Signs 12/29/19 11:26 Temperature 97.7 F Pulse Rate 65 Respiratory 18 Rate Blood Pressure 113/67 O2 Sat by Pulse 100 Oximetry Medical Decision Making - Medical Decision Making When I started my physical exam I thought the patient felt a little warm somewhat sticky temperature and apparently poked in the tongue and then she started using the F Bomb toward me and I told her that she wasn't going to speak to me or the staff that and at that point in time she stated she did want to be seen by me and at that point time I told her I was the physician for this room and she didn't want to be seen by me she would be discharged. She again started swearing I left the room after she indicated she was not going to alter her behavior. I spoke with Dr. Minor and discussed the situation and the patient's vitals and he was okay with my assessment and the fact that the patient could now be discharged Disposition Clinical Impression: Verbally abusive behavior Disposition: Left Against Medical Advice Condition: Good Referrals: None,Stated [Primary Care Provider] - 1-2 days Time of Disposition: 11:56
== END 2019-12-29 13:00 | disposition left against medical advice (07) ==
LOC: EC 11:23
DX: O99.89 Other specified diseases and conditions complicating pregnancy, childbirth and the puerperium (principal); R45.6 Violent behavior; O21.9 Vomiting of pregnancy, unspecified; O99.330 Smoking (tobacco) complicating pregnancy, unspecified trimester; F17.200 Nicotine dependence, unspecified, uncomplicated; Z3A.00 Weeks of gestation of pregnancy not specified
CPT/HCPCS: 99284

== ENCOUNTER 2019-12-29 18:43 | Inpatient (IN) | payer OTHER ==
[2019-12-29 19:28] LABS: Appearance,Urine Clear (Clear); Bilirubin,Urine Negative (Negative); Blood,Urine Negative (Negative); Color,Urine Yellow; Glucose,Urine (UA) Negative (Negative); Ketones,Urine 3+ (Negative); Leukocyte Esterase,Urine Negative (Negative); Mucus,Urine Many /hpf; Nitrite,Urine Negative (Negative); PH, Urine 6.5 (5.0-8.0); Protein,Urine 1+ (Negative); RBC,Urine 1 /hpf (0-5); Specific Gravity,Urine 1.032 (1.001-1.035); Squamous Epithelial Cell,Urine 2 /hpf (0-4); WBC,Urine 2 /hpf (0-5)
[2019-12-29] MEDS: LACTATED RINGERS 1,000 ML IV SCH ×3 (20:10→22:54)
[2019-12-29] MEDS ORDERED: diphenhydrAMINE 50 MG/ML 1 ML VIAL IVP STA (22:16)
[2019-12-29] MEDS: FAMOTIDINE 20 MG/2 ML VIAL IV SCH (23:43)
[2019-12-30] MEDS ORDERED: METOCLOPRAMIDE 10 MG TAB PO SCH (07:30)
[2019-12-30] MEDS: FAMOTIDINE 20 MG/2 ML VIAL IV SCH (09:28)
--- NOTE | 2019-12-30 09:30 | P.HPOB ---
History of Present Illness H&P Date: 12/30/19 Chief Complaint: Intrauterine at 6 weeks: Hyperemesis Patient is a 24-year-old female 6 weeks who has been seen through the emergency room for the last 3 days. This yesterday morning she was in the emergency room and had a disagreement with the emergency room physician and was asked to leave. I did review then her labs and previous treatments for her nausea and vomiting and it appeared that she was been still significantly dehydrated therefore we called her from our office and directly admitted her to labor and delivery for IV hydration and antiemetics. She relates that she is had this nausea and vomiting issues since her last baby was born approximately 2 years ago. She is not seen any carbon capture power plant engineer or had any significant workup done for this despite being 2 years of symptoms. Her PCP apparently says that they don't believe her. It is noted that she is a daily marijuana user and that even now during the she is smoking 1 joint a day she is aware that this is not safe for and that the reality is she could have hyperemesis from marijuana use and I did re-explained this to her and highlight that until she is stopped using marijuana for several days she may continue to have this problem. Labs from were all normal including electrolytes. It is noted that her TSH is fractionally low but this is likely due to the and not early hyperthyroidism as her T4 is normal. Will admit her for observational status with 3+ ketones in her urine. When I first got here to see her, she had a [employer] bag and was in the middle of a chicken salad and while she relates she has not had anything else other than a peanut butter sandwich she had been tolerating this and was feeling significantly improved over 1 she was in the emergency room. We did try speak with her much earlier in the day and it took her 45 hours to secure childcare so that is why there was a delay in her been spoken to by our office in her coming to labor and delivery. At the time of my initial evaluation she is denying any nausea she relates that the right one was working well and that she felt very good and that she tolerated that we previously had documented. However, approximately 2 hours later she was throwing up and was nauseous again. If added Benadryl and Pepcid to try and get better control of her nausea. If she can maintain at least a liquid diet we'll plan discharged home in the morning. She is aware this may be a long process as she is only 6 weeks and that the nausea and vomiting may only get worse for the next several weeks. Past Medical History Past Medical History: Asthma, Musculoskeletal Disorder Additional Past Medical History / Comment(s): kidney stones, right hip " muscle rubs on the bone". hard of hearing in left ear. nearsighted. wears glasses History of Any Multi-Drug Resistant Organisms: None Reported Past Surgical History: No Surgical Hx Reported Additional Past Anesthesia/Blood Transfusion Reaction / Comment(s): no hx Past Psychological History: Bipolar Additional Psychological History / Comment(s): states hx of bipolar at 15 years old after suicide attempt. also states hse was suicidal when she found out she was . states she was on meds at 15 years old but took her off of them after a short time. no meds during . Smoking Status: Former smoker Past Alcohol Use History: None Reported Past Drug Use History: Marijuana Additional Drug Use History / Comment(s): cannibis use for several years. last used 2 mos ago. d enies ever using any other drugs or otc meds. - Past Family History Father Additional Family Medical History / Comment(s): psychological history-, seizure, etoh hx Mother Family Medical History: Coronary Artery Disease (CAD), Thyroid Disorder Additional Family Medical History / Comment(s): diverticulitis, Medications and Allergies Home Medications Medication Instructions Recorded Confirmed Type Cephalexin [Keflex] 500 mg PO Q8HR #21 cap 12/27/19 12/29/19 Rx Pnv,Calcium 72/Iron/Folic Acid 1 tab PO DAILY 12/27/19 12/29/19 History [ Plus Tablet] Metoclopramide [Reglan] 10 mg PO TID PRN #40 tab 12/28/19 12/29/19 Rx Allergies Allergy/AdvReac Type Severity Reaction Status Date / Time No Known Allergies Allergy Verified 12/29/19 11:29 Exam Osteopathic Statement: *. No significant issues noted on an osteopathic structural exam other than those noted in the History and Physical/Consult. Vital Signs Temp Pulse Resp BP Pulse Ox 12/30/19 00:00 98.8 F 74 16 102/65 100 12/29/19 22:51 98.8 F 74 16 102/65 100 Intake and Output 12/29/19 12/30/19 12/30/19 22:59 06:59 14:59 Other: # Voids 2 Weight 81.647 kg - OBG Physical Exam Breast: both: normal (no masses) Abdomen: bowel sounds normal, no diffuse tenderness, no bruit present, no guarding noted, no hepatomegaly, no splenomegaly, no mass Vulva: both: normal Vagina: normal moisture, no discharge Cervix: no lesion, no discharge Uterus: normal size, normal contour Adnexa: both: normal Anus/Rectum: normal perianal skin, no rectal mass, no hemorrhoids, heme negative Results Abnormal Lab Results - Last 24 Hours (Table) 12/29/19 Range/Units 18:55 Urine Protein 1+ H (Negative) Urine Ketones 3+ H (Negative) Urine Mucus Many H (None) /hpf
--- NOTE | 2019-12-30 10:28 | P.PN ---
Progress Note - Text Progress Note Date: 12/30/19 Patient is seen and evaluated. She continues to have hyperemesis with Licea now dry heaving as she is not had any significant diet. Her hydration is certainly improved based on the amount of IV fluid she's got and she is voiding. She relates that she slept generally through the night after her dose of Benadryl but at 3 and morning she took Reglan and immediately threw it up and has not taken anything since. She is tearful and anxious and concerned. We'll consult psychiatry for history bipolar with significant risk for hyperemesis based on psychiatric disease. We'll also consult GI and see if there is a better treatment plan for her hyperemesis as it seems like were only gaining fractionally small amount in her symptoms. We'll change her medication from by mouth to IV for the day and see if we can get her feeling better. All the questions are answered for her at this time. Vital signs are stable and afebrile. Heart regular, lungs clear, extremities without pain. Abdomen is otherwise soft. Positive bowel sounds are noted. Assessment intrauterine at 6 weeks with hyperemesis? Contribution of anxiety/psychiatric issues as well as history of marijuana use Plan changed to IV antiemetics today and requests consults from GI and psychiatry
[2019-12-30] MEDS: diphenhydrAMINE 50 MG/ML 1 ML VIAL IVP PRN ×3 (10:32→23:24)
[2019-12-30] MEDS: METOCLOPRAMIDE 5 MG/ML 2 ML VIAL IVP PRN ×3 (10:33→22:38)
[2019-12-31] MEDS: LACTATED RINGERS 1,000 ML IV SCH ×2 (04:35→20:00)
[2019-12-31] MEDS: FAMOTIDINE 20 MG/2 ML VIAL IV SCH ×3 (08:57→20:00)
[2019-12-31] MEDS: METOCLOPRAMIDE 5 MG/ML 2 ML VIAL IVP PRN ×3 (09:04→23:10)
--- NOTE | 2019-12-31 10:36 | P.PN ---
Progress Note - Text Progress Note Date: 12/31/19 Alexus is seen and evaluated. Overall she looks a little better today than she did yesterday. She did tolerate some Popsicles yesterday but throughout pursuit. GI has done there evaluation and final report is pending. They have added Zofran with every 6 hours Zofran and every 6 hour Reglan split 3 hour apart. We will continue observational care and slowly advance diet. Her vital signs are stable and afebrile. Heart regular, lungs clear, extremities without pain. Abdomen soft. Assessment intrauterine 6 weeks hyperemesis Plan await psych evaluation for anxiety and as previously noted GI medication changes.
--- NOTE | 2019-12-31 11:51 | CONS ---
CONSULTATION DATE OF DICTATION: December 31, 2019. REQUESTING PHYSICIAN: Chronic nausea, vomiting/six weeks of . HISTORY OF PRESENT ILLNESS: Patient is a 24-year-old pleasant white female with history of anxiety and bipolar disorder diagnosed at age 15 presently on no medication who has been having chronic intermittent nausea and vomiting for almost 2 years duration. Her symptoms began in 2017 and she has been having episodes almost on a daily basis. She has 1 or 2 episodes of nausea, vomiting associated with some heartburn and during her 1st she had symptoms that went all thru the but not as intense. She tried to seek medical attention following the and apparently was told to take over-the- counter medications as needed for her symptoms. In order to cope with nausea and vomiting, she started smoking pot every day and continued to smoke heavily in the last 1 year. She believed some of the symptoms got better early on. However, for the last few months, especially since she became and for the last 6 weeks she has been having worsening symptoms. Lately for the last 1 week, she has been doing at least 10- 15 times daily. She has dry heaves all day, has severe heartburn, occasional epigastric pain also. Since being in the hospital, she was started on IV Pepcid as well as Reglan with minimal relief in her symptoms. She denies any change in her bowel habits. Denies any rectal bleeding or melena. No prior history of peptic ulcer disease. No recent NSAID use. On further questioning, she states that lately she has been more anxious. She has not seen a psychiatrist since age 15. PAST MEDICAL HISTORY: Past medical history of GERD, anxiety, bipolar disorder. PAST SURGICAL HISTORY: Past surgical history unremarkable. MEDICATIONS: Medications at home include vitamins, Reglan. ALLERGIES: None. SOCIAL HISTORY: Cannabis use for several years. No intravenous drug use. FAMILY HISTORY: Father seizure disorder and alcohol use. Brother has coronary artery disease and hypothyroidism. REVIEW OF SYSTEMS: CARDIOPULMONARY: She denies any chest pain, shortness of breath. GENITOURINARY: No dysuria or hematuria. MUSCULOSKELETAL unremarkable. SKIN unremarkable. ENDOCRINE unremarkable. PSYCHIATRIC anxiety, depression. ENT/VISION: Unremarkable. CONSTITUTIONAL: No recent weight loss. No fevers, chills or night sweats. HEMATOLOGY: Unremarkable. ENDOCRINE: Unremarkable. NEUROLOGY unremarkable. PHYSICAL EXAMINATION: She appears comfortable. No apparent distress. Vital signs stable. Blood pressure is 102/65, pulse rate is 74, temperature 98.8. HEENT examination unremarkable. Conjunctivae pink. Sclerae anicteric. Oral cavity no lesions. NECK: No JVD or lymph node enlargement. CHEST: Clear to auscultation. HEART: Regular rate and rhythm. ABDOMEN: Soft, nontender, nondistended. Bowel sounds are positive. No organomegaly. EXTREMITIES: No pedal edema. SKIN no rashes. NEURO: She is alert and oriented x3. No focal deficits. LABS: No labs available at the time of admission the hospital. Urinalysis was negative. IMPRESSION: 1. Chronic nausea, vomiting of almost 3 years duration. The patient has been having symptoms almost on a daily basis. She has emesis 1 or 2 bouts every day associated with some epigastric discomfort, persistent nausea and heartburn. Her symptoms are multifactorial in etiology, probably mostly anxiety related, but part of it could be explained on the basis of ongoing gastroesophageal reflux disease, acid reflux, as well as chronic use of marijuana. She may also have Cannibis hyperemesis syndrome based on chronic use of marijuana for the last 2 years. Since she found out she was , she had significantly decreased dose of marijuana use and lately has been only smoking once daily. 2. Six weeks of . RECOMMENDATIONS: 1. Increase the Pepcid to 20 mg twice daily. 2. Add Zofran 4 mg every 6 hours alternating with Reglan as needed for the nausea and vomiting. 3. Small frequent meals. 4. Agree with psychiatric consultation to control anxiety. 5. No plans on any endoscopic intervention. Thank you for this consultation. We will follow with you closely during the hospital stay. MMODL / IJN: [id number] /
[2019-12-31] MEDS: ONDANSETRON 4 MG/2 ML VIAL IVP PRN ×2 (12:03→19:56)
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
[2019-12-31] MEDS: diphenhydrAMINE 50 MG/ML 1 ML VIAL IVP PRN (23:08)
[2020-01-01] MEDS: METOCLOPRAMIDE 5 MG/ML 2 ML VIAL IVP PRN (05:36)
[2020-01-01] MEDS: diphenhydrAMINE 50 MG/ML 1 ML VIAL IVP PRN (05:40)
[2020-01-01] MEDS: LACTATED RINGERS 1,000 ML IV SCH (05:41)
[2020-01-01] MEDS ORDERED: CITALOPRAM HYDROBROMIDE 10 MG TAB PO SCH (09:00)
[2020-01-01] MEDS: FAMOTIDINE 20 MG/2 ML VIAL IV SCH (09:39)
[2020-01-01 11:35] VITALS: BP 124/78; PULSE 81; RESP 18; TEMP 98.3
--- NOTE | 2020-01-01 12:41 | P.CON ---
Consult Note - . Consult date: 01/01/20 Assessment/Plan:: Clinical Problems: Major depressive disorder, rule out bipolar disorder most recent episode depressed, rule out cannabis use disorder, rule out methamphetamine use disorder. Interim history: I reviewed the medical record the patient. Her dental chairside assistant started citalopram 10 mg daily for the treatment of her depressive symptoms. She reported that her nausea and vomiting has decreased since admission. She was able to eat solid foods this morning. Overall she feels more hopeful than on admission. She is interested and continued mental health services and plans to contact [facility] since she had a positive experience with this organization in the past. Mental status exam: She presented as casually groomed young female who was pleasant on approach. She made eye contact and attended to the interview. She did not cry during this interview. She showed no abnormality of psychomotor activity. Her speech was spontaneous with normal rate, rhythm and volume. Her affect was depressed but reactive. She denied suicidal ideation, wishes or homicidal ideation. She denied ideas of reference, paranoid ideation or delusional thoughts. Her thinking was abstract and associations were coherent and logical. She denied hallucinations did not appear to responding to internal stimuli. Assessment: Her mood is improved with the improvement of her physical symptoms. Plan: She would benefit from continued mental health services and I supported her decision to schedule an appointment with [facility]. Continue Citalopram and Titrated According to Clinical Response and Tolerance. Usual An tidepressant Doses Range 10-40 Mg per Day. Psychiatry Will Sign off the Case. Thank You for the Consult.
[2020-01-01] MEDS: ONDANSETRON 4 MG/2 ML VIAL IVP PRN (12:46)
== END 2020-01-01 14:10 | disposition home or self-care (01) | DRG 832 ==
LOC: FBPOP 18:43 → 4FBP 22:02 → OBSVTOIN 12-31 13:04
PROVIDERS: ADMIT Obstetrics & Gynecology; ATTEND Obstetrics & Gynecology
DX: O21.1 Hyperemesis gravidarum with metabolic disturbance (principal); O99.321 Drug use complicating pregnancy, first trimester; O99.341 Other mental disorders complicating pregnancy, first trimester; F31.9 Bipolar disorder, unspecified; F41.9 Anxiety disorder, unspecified; O99.611 Diseases of the digestive system complicating pregnancy, first trimester; K21.9 Gastro-esophageal reflux disease without esophagitis; F12.90 Cannabis use, unspecified, uncomplicated; E86.0 Dehydration; Z3A.01 Less than 8 weeks gestation of pregnancy; O99.511 Diseases of the respiratory system complicating pregnancy, first trimester; J45.909 Unspecified asthma, uncomplicated; H91.92 Unspecified hearing loss, left ear; Z79.899 Other long term (current) drug therapy; Z87.891 Personal history of nicotine dependence; Z91.5 Personal history of self-harm; Z62.810 Personal history of physical and sexual abuse in childhood; Z87.442 Personal history of urinary calculi; Z83.49 Family history of other endocrine, nutritional and metabolic diseases; Z82.0 Family history of epilepsy and other diseases of the nervous system; Z82.49 Family history of ischemic heart disease and other diseases of the circulatory system; Z83.79 Family history of other diseases of the digestive system; Z81.4 Family history of other substance abuse and dependence
CPT/HCPCS: 81001; 96360; 99214

== ENCOUNTER 2020-02-25 09:00 | Emergency (ER) | payer OTHER ==
[2020-02-25 09:04] VITALS: BP 123/87; PULSE 77; RESP 16; TEMP 98
--- NOTE | 2020-02-25 09:11 | ED ---
ENT HPI - General Chief complaint: Dental/Oral Stated complaint: PAIN, SWELLING FACE Time Seen by Provider: 02/25/20 09:03 Source: patient, RN notes reviewed Mode of arrival: ambulatory Limitations: no limitations - History of Present Illness Initial comments: 24-year-old female presents emergency Department chief complaint of dental pain. Patient states she has an abscess and upper abdominal region. Patient denies any fevers or chills. Patient states is painful she is currently 14 weeks . Denies any complaints denies any abdominal pain or vaginal bleeding. Patient has taken Tylenol for her pain. Patient unable follow-up at this time with a dentist. Patient offers no complaints. - Related Data Home Medications Medication Instructions Recorded Confirmed Pnv,Calcium 72/Iron/Folic Acid 1 tab PO DAILY 12/27/19 12/29/19 [ Plus Tablet] Previous Rx's Medication Instructions Recorded Cephalexin [Keflex] 500 mg PO Q8HR #21 cap 12/27/19 Metoclopramide [Reglan] 10 mg PO TID PRN #40 tab 12/28/19 Citalopram Hydrobromide [CeleXA] 10 mg PO DAILY #30 tab 01/01/20 Famotidine [Pepcid] 20 mg PO BID #60 tablet 01/01/20 Penicillin V Potassium [Pen Vee K] 500 mg PO QID #40 tablet 02/25/20 Allergies Allergy/AdvReac Type Severity Reaction Status Date / Time No Known Allergies Allergy Verified 02/25/20 09:04 Review of Systems ROS Statement: Those systems with pertinent positive or pertinent negative responses have been documented in the HPI. ROS Other: All systems not noted in ROS Statement are negative. Past Medical History Past Medical History: Asthma, Musculoskeletal Disorder Additional Past Medical History / Comment(s): kidney stones, right hip " muscle rubs on the bone". hard of hearing in left ear. nearsighted. wears glasses History of Any Multi-Drug Resistant Organisms: None Reported Past Surgical History: No Surgical Hx Reported Additional Past Anesthesia/Blood Transfusion Reaction / Comment(s): no hx Past Psychological History: Bipolar Smoking Status: Former smoker - Past Family History Father Additional Family Medical History / Comment(s): psychological history-, seizure, etoh hx Mother Family Medical History: Coronary Artery Disease (CAD), Thyroid Disorder Additional Family Medical History / Comment(s): diverticulitis, General Exam Limitations: no limitations General appearance: alert, in no apparent distress Head exam: Present: atraumatic, normocephalic, normal inspection Eye exam: Present: normal appearance, PERRL, EOMI. Absent: scleral icterus, conjunctival injection, periorbital swelling ENT exam: Present: mucous membranes moist, TM's normal bilaterally, normal external ear exam. Absent: normal oropharynx (Swelling of the gumline in front of tooth #8) Neck exam: Present: normal inspection, full ROM. Absent: tenderness, meningismus, lymphadenopathy Respiratory exam: Present: normal lung sounds bilaterally. Absent: respiratory distress, wheezes, rales, rhonchi, stridor Cardiovascular Exam: Present: regular rate, normal rhythm, normal heart sounds. Absent: systolic murmur, diastolic murmur, rubs, gallop, clicks Course Vital Signs 02/25/20 09:01 Temperature 98.0 F Pulse Rate 77 Respiratory 16 Rate Blood Pressure 123/87 O2 Sat by Pulse 99 Oximetry Medical Decision Making - Medical Decision Making Patient has signs of early dental abscess. Patient placed on Pen-Vee K. Patient advised to continue Tylenol as she is . Return parameters were discussed. Disposition Clinical Impression: Dental abscess Disposition: HOME SELF-CARE Condition: Stable Instructions (If sedation given, give patient instructions): Dental Abscess (ED) Additional Instructions: Please return to the Emergency Department if symptoms worsen or any other concerns. Prescriptions: Penicillin V Potassium [Pen Vee K] 500 mg PO QID #40 tablet Is patient prescribed a controlled substance at d/c from ED?: No Referrals: Joann Barrios DO [Primary Care Provider] - 1-2 days Time of Disposition: 09:10
== END 2020-02-25 09:12 | disposition home or self-care (01) ==
LOC: EC 09:00
DX: O99.512 Diseases of the respiratory system complicating pregnancy, second trimester (principal); K04.7 Periapical abscess without sinus; Z3A.14 14 weeks gestation of pregnancy; Z87.891 Personal history of nicotine dependence
CPT/HCPCS: 99282

== ENCOUNTER 2020-03-08 10:03 | Emergency (ER) | payer OTHER ==
[2020-03-08 10:09] VITALS: RESP 18
[2020-03-08] MEDS ORDERED: SODIUM CHLORIDE 0.9% 1,000 ML IV STA (10:24)
[2020-03-08] MEDS ORDERED: METOCLOPRAMIDE 5 MG/ML 2 ML VIAL IVP STA (10:24)
--- NOTE | 2020-03-08 10:31 | ED ---
Nausea/Vomiting/Diarrhea HPI - General Chief complaint: Nausea/Vomiting/Diarrhea Stated complaint: vomiting/16 wks preg Time Seen by Provider: 03/08/20 10:11 Source: patient Mode of arrival: wheelchair Limitations: no limitations - History of Present Illness Initial comments: Patient is a 24-year-old female, currently 16 weeks , presenting to the emergency Department with complaints of vomiting 4 days. Patient states she was recently diagnosed with hyperemesis. MEDICAL OFFICE WORKER is Dr. Barrios. . She denies any abdominal pain, vaginal bleeding at this time. She denies any fever, chills, cough, shortness of breath. Her only complaint is the nausea and vomiting. She has no other complaints at this time. Upon arrival to the ER, her vital signs are stable. - Related Data Home Medications Medication Instructions Recorded Confirmed Pnv,Calcium 72/Iron/Folic Acid 1 tab PO DAILY 12/27/19 12/29/19 [ Plus Tablet] Previous Rx's Medication Instructions Recorded Cephalexin [Keflex] 500 mg PO Q8HR #21 cap 12/27/19 Metoclopramide [Reglan] 10 mg PO TID PRN #40 tab 12/28/19 Citalopram Hydrobromide [CeleXA] 10 mg PO DAILY #30 tab 01/01/20 Famotidine [Pepcid] 20 mg PO BID #60 tablet 01/01/20 Penicillin V Potassium [Pen Vee K] 500 mg PO QID #40 tablet 02/25/20 Allergies Allergy/AdvReac Type Severity Reaction Status Date / Time No Known Allergies Allergy Verified 03/08/20 10:09 Review of Systems ROS Statement: Those systems with pertinent positive or pertinent negative responses have been documented in the HPI. ROS Other: All systems not noted in ROS Statement are negative. Past Medical History Past Medical History: Asthma, Musculoskeletal Disorder Additional Past Medical History / Comment(s): kidney stones, right hip " muscle rubs on the bone". hard of hearing in left ear. nearsighted. wears glasses History of Any Multi-Drug Resistant Organisms: None Reported Past Surgical History: No Surgical Hx Reported Additional Past Anesthesia/Blood Transfusion Reaction / Comment(s): no hx Past Psychological History: Bipolar Smoking Status: Former smoker Past Alcohol Use History: None Reported Past Drug Use History: Marijuana - Past Family History Father Additional Family Medical History / Comment(s): psychological history-, seizure, etoh hx Mother Family Medical History: Coronary Artery Disease (CAD), Thyroid Disorder Additional Family Medical History / Comment(s): diverticulitis, General Exam - General Exam Comments Initial Comments: GENERAL: Patient appears anxious, dry heaving during exam, in no acute distress. HEAD: Atraumatic, normocephalic. EYES: Pupils equal round and reactive to light, extraocular movements intact, sclera anicteric, conjunctiva are normal. ENT: TMs normal, nares patent, oropharynx clear without exudates. Moist mucous membranes. NECK: Normal range of motion, supple without lymphadenopathy or JVD. LUNGS: Breath sounds clear to auscultation bilaterally and equal. No wheezes rales or rhonchi. HEART: Regular rate and rhythm without murmurs, rubs or gallops. ABDOMEN: Soft, nontender, normoactive bowel sounds. No guarding, no rebound. No masses appreciated. : Deferred EXTREMITIES: Normal range of motion, no pitting or edema. No clubbing or cyanosis. NEUROLOGICAL: Normal speech, normal gait. PSYCH: Normal mood, normal affect. SKIN: Warm, Dry, normal turgor, no rashes or lesions noted. Limitations: no limitations Course Vital Signs 03/08/20 03/08/20 10:05 11:49 Temperature 98.6 F 98 F Pulse Rate 71 74 Respiratory 18 18 Rate Blood Pressure 107/74 110/75 O2 Sat by Pulse 100 Oximetry Medical Decision Making - Medical Decision Making Patient is a 24-year-old female, currently 16 weeks , and diagnosis of hyperemesis presenting with nausea and vomiting 4 days. She feels like she is getting dehydrated. She is unable to hold down her Reglan at home. Vital signs are stable upon arrival. Patient denies any abdominal pain, vaginal bleeding. Her exam is unremarkable. Her lab work shows no acute abnormalities. Patient was given fluids and Reglan and has been resting comfortably in the ER. Patient states she feels well enough to go home. Patient states she does have Reglan at home for continued nausea. She will follow up with her MEDICAL OFFICE WORKER. She is in agreement with this plan of care. Return parameters were discussed with the patient she verbalized understanding. Case discussed with Dr. Skinner. - Lab Data Result diagrams: 03/08/20 10:30 03/08/20 10:30 Lab Results 03/08/20 03/08/20 Range/Units 10:30 10:30 WBC 9.8 (3.8-10.6) k/uL RBC 4.69 (3.80-5.40) m/uL Hgb 14.1 (11.4-16.0) gm/dL Hct 40.5 (34.0-46.0) % MCV 86.3 (80.0-100.0) fL MCH 30.2 (25.0-35.0) pg MCHC 35.0 (31.0-37.0) g/dL RDW 14.1 (11.5-15.5) % Plt Count 297 (150-450) k/uL Neutrophils % 75 % Lymphocytes % 19 % Monocytes % 4 % Eosinophils % 1 % Basophils % 0 % Neutrophils # 7.4 (1.3-7.7) k/uL Lymphocytes # 1.9 (1.0-4.8) k/uL Monocytes # 0.4 (0-1.0) k/uL Eosinophils # 0.1 (0-0.7) k/uL Basophils # 0.0 (0-0.2) k/uL Sodium 137 (137-145) mmol/L Potassium 3.9 (3.5-5.1) mmol/L Chloride 105 (98-107) mmol/L Carbon Dioxide 18 L (22-30) mmol/L Anion Gap 14 mmol/L BUN 9 (7-17) mg/dL Creatinine 0.56 (0.52-1.04) mg/dL Est GFR (CKD-EPI)AfAm >90 (>60 ml/min/1.73 sqM) Est GFR (CKD-EPI)NonAf >90 (>60 ml/min/1.73 sqM) Glucose 94 (74-99) mg/dL Calcium 9.4 (8.4-10.2) mg/dL Total Bilirubin 0.7 (0.2-1.3) mg/dL AST 25 (14-36) U/L ALT 46 H (4-34) U/L Alkaline Phosphatase 66 (38-126) U/L Total Protein 7.4 (6.3-8.2) g/dL Albumin 4.2 (3.5-5.0) g/dL Disposition Clinical Impression: Hyperemesis arising during Disposition: HOME SELF-CARE Condition: Stable Instructions (If sedation given, give patient instructions): Hyperemesis Gravidarum (ED) Additional Instructions: Please return to the Emergency Department if symptoms worsen or any other concerns. Follow-up with MEDICAL OFFICE WORKER. Continue to increase fluid intake. Is patient prescribed a controlled substance at d/c from ED?: No Referrals: None,Stated [Primary Care Provider] - 1-2 days
[2020-03-08 10:47] LABS: ALT 46 U/L (4-34); AST 25 U/L (14-36); African American GFR (CKD) >90 (>60 ml/min/1.73 sqM); Albumin 4.2 g/dL (3.5-5.0); Alkaline Phosphatase 66 U/L (38-126); Anion Gap 14 mmol/L; Blood Urea Nitrogen 9 mg/dL (7-17); Calcium 9.4 mg/dL (8.4-10.2); Carbon Dioxide 18 mmol/L (22-30); Chloride 105 mmol/L (98-107); Glucose 94 mg/dL (74-99); Non-African American GFR(CKD) >90 (>60 ml/min/1.73 sqM); Potassium 3.9 mmol/L (3.5-5.1); Sodium 137 mmol/L (137-145); Total Bilirubin 0.7 mg/dL (0.2-1.3); Total Protein 7.4 g/dL (6.3-8.2)
[2020-03-08 11:13] LABS: Basophils % (A) 0 %; Eosinophils # (A) 0.1 k/uL (0-0.7); Eosinophils % (A) 1 %; HCT 40.5 % (34.0-46.0); HGB 14.1 gm/dL (11.4-16.0); Lymphocytes # (A) 1.9 k/uL (1.0-4.8); Lymphocytes % (A) 19 %; MCH 30.2 pg (25.0-35.0); MCV 86.3 fL (80.0-100.0); Mean Platelet Volume 7.2; Monocytes # (A) 0.4 k/uL (0-1.0); Monocytes % (A) 4 %; Neutrophils # (A) 7.4 k/uL (1.3-7.7); Neutrophils % (A) 75 %; Platelet Count 297 k/uL (150-450); RBC 4.69 m/uL (3.80-5.40); RDW 14.1 % (11.5-15.5); WBC 9.8 k/uL (3.8-10.6)
[2020-03-08 11:55] VITALS: BP 110/75; PULSE 74; TEMP 98
== END 2020-03-08 11:49 | disposition home or self-care (01) ==
LOC: EC 10:03
DX: O21.0 Mild hyperemesis gravidarum (principal); Z3A.16 16 weeks gestation of pregnancy; Z87.891 Personal history of nicotine dependence
CPT/HCPCS: 36415; 80053; 85025; 99283; 96374; 96361; J2765

== ENCOUNTER 2021-02-27 11:35 | Emergency (ER) | payer OTHER ==
[2021-02-27 11:43] VITALS: BP 123/78; PULSE 98; RESP 16; TEMP 98.7
--- NOTE | 2021-02-27 12:12 | ED ---
Back Pain HPI - General Source: patient Limitations: no limitations <Miriam Torres - Last Filed: 02/27/21 12:08> <Gabby Sanchez - Last Filed: 02/28/21 12:04> - General Chief Complaint: Back Pain/Injury Stated Complaint: Back injury/pain/cramping/6-8wks preg Time Seen by Provider: 02/27/21 11:44 - History of Present Illness Initial Comments: Patient is a 25-year-old female presenting to the emergency Department with complaints of lower back pain for the past 2 days. 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 She was seen at [facility] that same day, discharged home. Patient states she presented today because her back is still hurting and she is having some very mild lower abdominal cramping. She states she has anywhere from 6-8 weeks . She denies any vaginal bleeding. She does have her initial visit with her HANDKERCHIEF MAKER next week. She denies any fevers or chills, no nausea or vomiting. Denies any previous history of her back. She then states that she simply does not want to go to work today and is requesting a work note to keep her off for another night. She has no further complaints at this time. Upon arrival to the ER, her vitals are stable. (Miriam Torres) - Related Data Home Medications Medication Instructions Recorded Confirmed Pnv,Calcium 72/Iron/Folic Acid 1 tab PO DAILY 12/27/19 12/29/19 [ Plus Tablet] Previous Rx's Medication Instructions Recorded Cephalexin [Keflex] 500 mg PO Q8HR #21 cap 12/27/19 Metoclopramide [Reglan] 10 mg PO TID PRN #40 tab 12/28/19 Citalopram Hydrobromide [CeleXA] 10 mg PO DAILY #30 tab 01/01/20 Famotidine [Pepcid] 20 mg PO BID #60 tablet 01/01/20 Penicillin V Potassium [Pen Vee K] 500 mg PO QID #40 tablet 02/25/20 Allergies Allergy/AdvReac Type Severity Reaction Status Date / Time No Known Allergies Allergy Verified 03/08/20 10:09 Review of Systems ROS Other: All systems not noted in ROS Statement are negative. <Miriam Torres - Last Filed: 02/27/21 12:08> ROS Other: All systems not noted in ROS Statement are negative. <Gabby Sancehz - Last Filed: 02/28/21 12:04> ROS Statement: Those systems with pertinent positive or pertinent negative responses have been documented in the HPI. Past Medical History Past Medical History: Asthma, Musculoskeletal Disorder Additional Past Medical History / Comment(s): kidney stones, right hip " muscle rubs on the bone". hard of hearing in left ear. nearsighted. wears glasses History of Any Multi-Drug Resistant Organisms: None Reported Past Surgical History: No Surgical Hx Reported Additional Past Anesthesia/Blood Transfusion Reaction / Comment(s): no hx Past Psychological History: Bipolar Smoking Status: Never smoker Past Alcohol Use History: None Reported Past Drug Use History: Marijuana - Past Family History Father Additional Family Medical History / Comment(s): psychological history-, seizure, etoh hx Mother Family Medical History: Coronary Artery Disease (CAD), Thyroid Disorder Additional Family Medical History / Comment(s): diverticulitis, <Miriam Torres - Last Filed: 02/27/21 12:08> General Exam Limitations: no limitations <Miriam Torres - Last Filed: 02/27/21 12:08> - General Exam Comments Initial Comments: GENERAL: Patient is well-developed and well-nourished. Patient is nontoxic and in no acute distress. HEAD: Atraumatic, normocephalic. EYES: Pupils equal round and reactive to light, extraocular movements intact, sclera anicteric, conjunctiva are normal. Eyelids were unremarkable. ENT: TMs normal, nares patent, oropharynx clear without exudates. Moist mucous membranes. NECK: Normal range of motion, supple without lymphadenopathy or JVD. LUNGS: Unlabored respirations. Breath sounds clear to auscultation bilaterally and equal. No wheezes rales or rhonchi. HEART: Regular rate and rhythm without murmurs, rubs or gallops. ABDOMEN: Soft, nontender, normoactive bowel sounds. No guarding, no rebound. No masses appreciated. : Deferred MUSCULOSKELETAL: Normal extremities with adequate strength and normal range of motion, no pitting or edema. No clubbing or cyanosis. Mildly tender in the low back, full trunk range of motion. NEUROLOGICAL: Patient is alert and oriented x 3. Motor and sensory are also intact. Cranial nerves II through XII grossly intact. Symmetrical smile. Normal speech, normal gait. PSYCH: Normal mood, normal affect. SKIN: Warm, Dry, normal turgor, no rashes or lesions noted. (Miriam Torres) Course Vital Signs 02/27/21 11:40 Temperature 98.7 F Pulse Rate 98 Respiratory 16 Rate Blood Pressure 123/78 O2 Sat by Pulse 98 Oximetry Medical Decision Making <Miriam Torres - Last Filed: 02/27/21 12:08> <Gabby Sanchez - Last Filed: 02/28/21 12:04> - Medical Decision Making Patient is a 25-year-old female here complaining of low back pain for the past 2 days. She was seen at [facility] on Wednesday after she injured it at work. Patient was also having some mild lower abdominal cramping, she is currently 6-8 weeks . . She has an appointment with her HANDKERCHIEF MAKER next week. Patient is requesting a work note as she does not feel control to go back to work yet. I did want to get a urinalysis however patient declined states she does not want to wait for this. Patient given work note for tonight. Patient can follow up with her HANDKERCHIEF MAKER or her family doctor. She is stable for discharge. She can take Tylenol for her discomfort. She is in agreement with this plan of care. Dr. Sanchez. (Miriam Torres) I was available for consultation in the emergency department. The history and physical exam were done by the midlevel provider. I was consulted for this patients care. I reviewed the case with the midlevel provider and based on their presentation of the patient, I agree with the assessment, medical decision making and plan of care as documented. Chart was dictated using [employer] dictation software. Attempts were made to correct any dictation errors however some typographical errors may persist. Patient was seen during a national state of emergency due to the Covid-19 pandemic. (Gabby Sanchez) Disposition Is patient prescribed a controlled substance at d/c from ED?: No Time of Disposition: 12:11 <Miriam Torres - Last Filed: 02/27/21 12:08> <Gabby Sanchez - Last Filed: 02/28/21 12:04> Clinical Impression: Strain of lumbar region Disposition: HOME SELF-CARE Condition: Stable Instructions (If sedation given, give patient instructions): Acute Low Back Pain (ED) Additional Instructions: Please return to the Emergency Department if symptoms worsen or any other concerns. May take Tylenol for any discomfort, use heat and/or ice to the area. Follow-up with your HANDKERCHIEF MAKER. Referrals: None,Stated [Primary Care Provider] - 1-2 days
== END 2021-02-27 12:23 | disposition home or self-care (01) ==
LOC: EC 11:35
DX: O9A.211 Injury, poisoning and certain other consequences of external causes complicating pregnancy, first trimester (principal); S39.012A Strain of muscle, fascia and tendon of lower back, initial encounter; Z79.899 Other long term (current) drug therapy; Z3A.09 9 weeks gestation of pregnancy; X50.0XXA Overexertion from strenuous movement or load, initial encounter; Y93.89 Activity, other specified; Y92.129 Unspecified place in nursing home as the place of occurrence of the external cause
CPT/HCPCS: 99283

== ENCOUNTER 2021-03-17 15:05 | Emergency (ER) | payer OTHER ==
[2021-03-17 15:21] VITALS: RESP 20
[2021-03-17] MEDS ORDERED: SODIUM CHLORIDE 0.9% 500 ML 500 ML IV STA (15:37)
[2021-03-17] MEDS ORDERED: SODIUM CHLORIDE 0.9% 1,000 ML IV STA (15:37)
[2021-03-17] MEDS ORDERED: ONDANSETRON 4 MG/2 ML VIAL IVP STA (15:37)
--- NOTE | 2021-03-17 15:41 | ED ---
General Adult HPI - General Chief complaint: Abdominal Pain Stated complaint: vomiting, 8 weeks preg Time Seen by Provider: 03/17/21 15:26 Source: patient Mode of arrival: ambulatory Limitations: no limitations - History of Present Illness Initial comments: 25 year-old female patient presents to the emergency department for evaluation of vomiting. States she has been unable to keep down any food or fluids for almost a week. States she is 8 weeks A1. She was seen and evaluated at [facility] Emergency department on Wednesday. States she had labs, ultrasound, and IV fluids/antiemetics and was discharged home. States that her symptoms have continued. She is unable to keep down her nausea medication. States she does have oral dissolving zofran, but has been too sick to get the prescription filled. She denies any fever or chills. Denies any abdominal pain, vaginal bleeding, or vaginal discharge. Denies any hematuria, dysuria, urinary frequency, urinary urgency. - Related Data Home Medications Medication Instructions Recorded Confirmed Pnv,Calcium 72/Iron/Folic Acid 1 tab PO DAILY 12/27/19 12/29/19 [ Plus Tablet] Previous Rx's Medication Instructions Recorded Cephalexin [Keflex] 500 mg PO Q8HR #21 cap 12/27/19 Metoclopramide [Reglan] 10 mg PO TID PRN #40 tab 12/28/19 Citalopram Hydrobromide [CeleXA] 10 mg PO DAILY #30 tab 01/01/20 Famotidine [Pepcid] 20 mg PO BID #60 tablet 01/01/20 Penicillin V Potassium [Pen Vee K] 500 mg PO QID #40 tablet 02/25/20 Ondansetron [Zofran ODT] 4 mg PO Q8HR PRN #20 tab 03/17/21 Allergies Allergy/AdvReac Type Severity Reaction Status Date / Time No Known Allergies Allergy Verified 03/17/21 15:21 Review of Systems ROS Statement: Those systems with pertinent positive or pertinent negative responses have been documented in the HPI. ROS Other: All systems not noted in ROS Statement are negative. Past Medical History Past Medical History: Asthma, Musculoskeletal Disorder Additional Past Medical History / Comment(s): kidney stones, right hip " muscle rubs on the bone". hard of hearing in left ear. nearsighted. wears glasses History of Any Multi-Drug Resistant Organisms: None Reported Past Surgical History: No Surgical Hx Reported Additional Past Anesthesia/Blood Transfusion Reaction / Comment(s): no hx Past Psychological History: Bipolar Smoking Status: Never smoker Past Alcohol Use History: None Reported Past Drug Use History: Marijuana - Past Family History Father Additional Family Medical History / Comment(s): psychological history-, seizure, etoh hx Mother Family Medical History: Coronary Artery Disease (CAD), Thyroid Disorder Additional Family Medical History / Comment(s): diverticulitis, General Exam Limitations: no limitations General appearance: alert, in no apparent distress, other (This is a well- developed, well-nourished adult female patient in no acute distress. Vital signs upon presentation are temperature 98.2F, pulse 91, respirations 20, blood pressure 119/83, pulse ox 100% on room air.) Eye exam: Present: normal appearance, PERRL, EOMI. Absent: scleral icterus, conjunctival injection, periorbital swelling ENT exam: Present: normal exam, normal oropharynx, mucous membranes moist Respiratory exam: Present: normal lung sounds bilaterally. Absent: respiratory distress, wheezes, rales, rhonchi, stridor Cardiovascular Exam: Present: regular rate, normal rhythm, normal heart sounds. Absent: systolic murmur, diastolic murmur, rubs, gallop, clicks GI/Abdominal exam: Present: soft, normal bowel sounds. Absent: distended, tenderness, guarding, rebound, rigid Neurological exam: Present: alert, oriented X3, CN II-XII intact Psychiatric exam: Present: normal affect, normal mood Skin exam: Present: warm, dry, intact, normal color. Absent: rash Course Vital Signs 03/17/21 03/17/21 15:15 18:30 Temperature 98.2 F 98.3 F Pulse Rate 91 62 Respiratory 20 20 Rate Blood Pressure 119/83 113/76 O2 Sat by Pulse 100 99 Oximetry Medical Decision Making - Medical Decision Making 25-year-old female patient presents to the emergency department today for evaluation of vomiting. She has a weeks . Was seen at [facility] on Wednesday had ultrasound and labs discharged. She did not mixing picker tender her oral dissolving Zofran and she was too sick. Physical examination is unremarkable. Abdomen soft and nontender. Denies any abdominal pain, vaginal bleeding, vaginal discharge. Labs reviewed and are unremarkable. Urinalysis showed no signs of infection but did show 3+ ketones. She was given IV fluids and nausea medicine. Upon reevaluation states she is feeling better she'll be discharged with a starter pack for Zofran and a [facility] of [facility]. She is instructed to follow-up with her BLACK LEATHER TRIMMER for recheck as soon as possible. Return parameters were discussed in detail. She verbalizes understanding and agrees with this plan. Case discussed with my attending Dr. Dumont. - Lab Data Result diagrams: 03/17/21 15:50 03/17/21 15:50 Lab Results 03/17/21 03/17/21 03/17/21 Range/Units 15:50 15:50 15:50 WBC 7.3 (3.8-10.6) k/uL RBC 4.56 (3.80-5.40) m/uL Hgb 13.6 (11.4-16.0) gm/dL Hct 39.0 (34.0-46.0) % MCV 85.7 (80.0-100.0) fL MCH 29.9 (25.0-35.0) pg MCHC 34.9 (31.0-37.0) g/dL RDW 13.6 (11.5-15.5) % Plt Count 262 (150-450) k/uL MPV 7.0 Neutrophils % 64 % Lymphocytes % 28 % Monocytes % 5 % Eosinophils % 2 % Basophils % 0 % Neutrophils # 4.7 (1.3-7.7) k/uL Lymphocytes # 2.0 (1.0-4.8) k/uL Monocytes # 0.4 (0-1.0) k/uL Eosinophils # 0.1 (0-0.7) k/uL Basophils # 0.0 (0-0.2) k/uL Sodium 138 (137-145) mmol/L Potassium 4.2 (3.5-5.1) mmol/L Chloride 104 (98-107) mmol/L Carbon Dioxide 25 (22-30) mmol/L Anion Gap 9 mmol/L BUN 7 (7-17) mg/dL Creatinine 0.61 (0.52-1.04) mg/dL Est GFR (CKD-EPI)AfAm >90 (>60 ml/min/1.73 sqM) Est GFR (CKD-EPI)NonAf >90 (>60 ml/min/1.73 sqM) Glucose 82 (74-99) mg/dL Calcium 9.2 (8.4-10.2) mg/dL Total Bilirubin 0.5 (0.2-1.3) mg/dL AST 17 (14-36) U/L ALT 19 (4-34) U/L Alkaline Phosphatase 52 (38-126) U/L Total Protein 7.0 (6.3-8.2) g/dL Albumin 4.1 (3.5-5.0) g/dL Lipase 64 (23-300) U/L Urine Color Yellow Urine Appearance Cloudy H (Clear) Urine pH 6.5 (5.0-8.0) Ur Specific [place] 1.024 (1.001-1.035) Urine Protein Negative (Negative) Urine Glucose (UA) Negative (Negative) Urine Ketones 3+ H (Negative) Urine Blood Negative (Negative) Urine Nitrite Negative (Negative) Urine Bilirubin Negative (Negative) Urine Urobilinogen <2.0 (<2.0) mg/dL Ur Leukocyte Esterase Negative (Negative) Urine RBC 1 (0-5) /hpf Urine WBC 1 (0-5) /hpf Ur Squamous Epith Cells 5 H (0-4) /hpf Urine Mucus Moderate H (None) /hpf Disposition Clinical Impression: Vomiting during Disposition: HOME SELF-CARE Condition: Good Instructions (If sedation given, give patient instructions): Dehydration (ED), Acute Nausea and Vomiting (ED) Additional Instructions: Increase fluids. Take medications as directed. Try eating small frequent meals. Follow-up with the BL[facility] LEATHER TRIMMER for recheck as well as possible. Return for any new, worsening, or concerning symptoms. Prescriptions: Ondansetron [Zofran ODT] 4 mg PO Q8HR PRN #20 tab PRN Reason: Nausea Is patient prescribed a controlled substance at d/c from ED?: No Referrals: None,Stated [Primary Care Provider] - 1-2 days Time of Disposition: 18:21
[2021-03-17 15:56] LABS: Basophils % (A) 0 %; Eosinophils # (A) 0.1 k/uL (0-0.7); Eosinophils % (A) 2 %; HGB 13.6 gm/dL (11.4-16.0); Lymphocytes % (A) 28 %; MCH 29.9 pg (25.0-35.0); MCHC 34.9 g/dL (31.0-37.0); MCV 85.7 fL (80.0-100.0); Monocytes # (A) 0.4 k/uL (0-1.0); Monocytes % (A) 5 %; Neutrophils # (A) 4.7 k/uL (1.3-7.7); Neutrophils % (A) 64 %; Platelet Count 262 k/uL (150-450); RBC 4.56 m/uL (3.80-5.40); RDW 13.6 % (11.5-15.5); WBC 7.3 k/uL (3.8-10.6)
[2021-03-17 16:07] LABS: ALT 19 U/L (4-34); AST 17 U/L (14-36); African American GFR (CKD) >90 (>60 ml/min/1.73 sqM); Albumin 4.1 g/dL (3.5-5.0); Alkaline Phosphatase 52 U/L (38-126); Anion Gap 9 mmol/L; Blood Urea Nitrogen 7 mg/dL (7-17); Calcium 9.2 mg/dL (8.4-10.2); Carbon Dioxide 25 mmol/L (22-30); Chloride 104 mmol/L (98-107); Glucose 82 mg/dL (74-99); Lipase 64 U/L (23-300); Non-African American GFR(CKD) >90 (>60 ml/min/1.73 sqM); Potassium 4.2 mmol/L (3.5-5.1); Sodium 138 mmol/L (137-145); Total Bilirubin 0.5 mg/dL (0.2-1.3)
[2021-03-17 17:38] LABS: Appearance,Urine Cloudy (Clear); Bilirubin,Urine Negative (Negative); Blood,Urine Negative (Negative); Color,Urine Yellow; Glucose,Urine (UA) Negative (Negative); Ketones,Urine 3+ (Negative); Leukocyte Esterase,Urine Negative (Negative); Mucus,Urine Moderate /hpf; Nitrite,Urine Negative (Negative); PH, Urine 6.5 (5.0-8.0); Protein,Urine Negative (Negative); RBC,Urine 1 /hpf (0-5); Specific Gravity,Urine 1.024 (1.001-1.035); Squamous Epithelial Cell,Urine 5 /hpf (0-4); Urobilinogen,Urine <2.0 mg/dL (<2.0); WBC,Urine 1 /hpf (0-5)
[2021-03-17] MEDS ORDERED: ONDANSETRON 4 MG ODT STARTER PACK 2 TAB BTL PO STA (18:20)
[2021-03-17 18:31] VITALS: BP 113/76; PULSE 62; TEMP 98.3
== END 2021-03-17 18:31 | disposition home or self-care (01) ==
LOC: EC 15:05
DX: O21.9 Vomiting of pregnancy, unspecified (principal); O99.511 Diseases of the respiratory system complicating pregnancy, first trimester; J45.909 Unspecified asthma, uncomplicated; Z87.442 Personal history of urinary calculi; Z3A.08 8 weeks gestation of pregnancy
CPT/HCPCS: 36415; 80053; 83690; 85025; 81001; 99284; 96374; 96361 ×2; J2405; S0119

== ENCOUNTER 2023-09-19 05:41 | Emergency (ER) | payer OTHER ==
[2023-09-19 05:55] VITALS: BP 121/95; PULSE 89; RESP 18; TEMP 96.9
--- NOTE | 2023-09-19 06:16 | ED ---
ENT HPI - General Chief complaint: Dental/Oral Stated complaint: Dental Pain, Test Time Seen by Provider: 09/19/23 06:03 Source: patient, RN notes reviewed Mode of arrival: ambulatory Limitations: no limitations - History of Present Illness Initial comments: 28-year-old female presents emergency from with chief complaint left-sided dental pain. Patient states that several last couple days. Patient states she has a broken molar. Patient states she's had issues in the past with this. Patient is concerned she may be as she is one week late on her menstrual cycle. She is unsure what she can take for pain currently. Patient denies any fever or chills. Denies any difficulty swallowing. Patient offers no other associated symptoms. - Related Data Home Medications Medication Instructions Recorded Confirmed Vit No.180/Iron/Folic 1 tab PO DAILY 12/27/19 12/29/19 [ Plus Tablet] Previous Rx's Medication Instructions Recorded Cephalexin [Keflex] 500 mg PO Q8HR #21 cap 12/27/19 Metoclopramide [Reglan] 10 mg PO TID PRN #40 tab 12/28/19 Citalopram Hydrobromide [CeleXA] 10 mg PO DAILY #30 tab 01/01/20 Famotidine [Pepcid] 20 mg PO BID #60 tablet 01/01/20 Penicillin V Potassium [Pen Vee K] 500 mg PO QID #40 tablet 02/25/20 Ondansetron [Zofran ODT] 4 mg PO Q8HR PRN #20 tab 03/17/21 Amoxic-Pot Clav 875-125Mg 1 tab PO Q12HR #20 tab 09/19/23 [Augmentin 875-125] Allergies Allergy/AdvReac Type Severity Reaction Status Date / Time No Known Allergies Allergy Verified 11/12/21 20:35 Review of Systems ROS Statement: Those systems with pertinent positive or pertinent negative responses have been documented in the HPI. ROS Other: All systems not noted in ROS Statement are negative. Past Medical History Past Medical History: Asthma, Musculoskeletal Disorder Additional Past Medical History / Comment(s): kidney stones, right hip " muscle rubs on the bone". hard of hearing in left ear. nearsighted. wears glasses History of Any Multi-Drug Resistant Organisms: None Reported Past Surgical History: No Surgical Hx Reported Additional Past Anesthesia/Blood Transfusion Reaction / Comment(s): no hx Past Psychological History: Bipolar Smoking Status: Never smoker Past Alcohol Use History: None Reported Past Drug Use History: Marijuana - Past Family History Father Additional Family Medical History / Comment(s): psychological history-, seizure, etoh hx Mother Family Medical History: Coronary Artery Disease (CAD), Thyroid Disorder Additional Family Medical History / Comment(s): diverticulitis, General Exam Limitations: no limitations General appearance: alert, in no apparent distress Head exam: Present: atraumatic, normocephalic, normal inspection Eye exam: Present: normal appearance, PERRL, EOMI. Absent: scleral icterus, conjunctival injection, periorbital swelling ENT exam: Present: mucous membranes moist. Absent: normal oropharynx (Left upper broken molar) Neck exam: Present: normal inspection, full ROM. Absent: tenderness, meningismus, lymphadenopathy Respiratory exam: Present: normal lung sounds bilaterally. Absent: respiratory distress, wheezes, rales, rhonchi, stridor Cardiovascular Exam: Present: regular rate, normal rhythm, normal heart sounds. Absent: systolic murmur, diastolic murmur, rubs, gallop, clicks Course Vital Signs 09/19/23 05:46 Temperature 96.9 F L Pulse Rate 89 Respiratory 18 Rate Blood Pressure 121/95 O2 Sat by Pulse 99 Oximetry Medical Decision Making - Medical Decision Making Was pt. sent in by a medical professional or institution ([place], GENETIC PHYSICIAN, urgent care, hospital, or detention...) When possible be specific @ -No Did you speak to anyone other than the patient for history (EMS, parent, family, police, friend...)? What history was obtained from this source @ -No Did you review nursing and triage notes (agree or disagree)? Why? @ -I reviewed and agree with nursing and triage notes Were old charts reviewed (outside hosp., previous admission, EMS record, old EKG, old radiological studies, urgent care reports/EKG's, detention records)? Report findings @ -No old charts were reviewed Differential Diagnosis (chest pain, altered mental status, abdominal pain women, abdominal pain men, vaginal bleeding, weakness, fever, dyspnea, syncope, headache, dizziness, GI bleed, back pain, seizure, CVA, palpatations, mental health, musculoskeletal)? @ -Dental pain, dental infection, dental abscess EKG interpreted by me (3pts min.). @ -[None X-rays interpreted by me (1pt min.). @ -None done CT interpreted by me (1pt min.). @ -None done U/S interpreted by me (1pt. min.). @ -None done What testing was considered but not performed or refused? (CT, X-rays, U/S, labs)? Why? @ -None What meds were considered but not given or refused? Why? @ -None Did you discuss the management of the patient with other professionals (professionals i.e. , PA, GENETIC PHYSICIAN, lab, RT, psych nurse, social media sr strategy manager, neurology teacher, teacher, ordnance corps officer, spring encaser)? Give summary @ -No Was smoking cessation discussed for >3mins.? @ -No Was critical care preformed (if so, how long)? @ -No Were there social determinants of health that impacted care today? How? (H omelessness, low income, unemployed, alcoholism, drug addiction, transportation, low edu. Level, literacy, decrease access to med. care, fci, rehab)? @ -No Was there de-escalation of care discussed even if they declined (Discuss DNR or withdrawal of care, Hospice)? DNR status @ -No What co-morbidities impacted this encounter? (DM, HTN, Smoking, COPD, CAD, Cancer, CVA, ARF, Chemo, Hep., AIDS, mental health diagnosis, sleep apnea, morbid obesity)? @ - Was patient admitted / discharged? Hospital course, mention meds given and route, prescriptions, significant lab abnormalities, going to OR and other pertinent info. @ -Discharge patient was given prescription for Augmentin patient is currently she may take [id number] acetaminophen for her pain relief she is advised follow-up with dentist for dental extraction. Undiagnosed new problem with uncertain prognosis? @ -No Drug Therapy requiring intensive monitoring for toxicity (Heparin, Nitro, Insulin, Cardizem)? @ -No Were any procedures done? @ -No Diagnosis/symptom? @ -Dental fracture, Acute, or Chronic, or Acute on Chronic? @ -[Acute Uncomplicated (without systemic symptoms) or Complicated (systemic symptoms)? @ -Uncomplicated Side effects of treatment? @ -No Exacerbation, Progression, or Severe Exacerbation? @ -No Poses a threat to life or bodily function? How? (Chest pain, [place], [place], pneumonia, PE, COPD, DKA, ARF, appy, cholecystitis, CVA, Diverticulitis, Homicidal, Suicidal, threat to staff... and all critical care pts) @ -No - Lab Data Lab Results 09/19/23 09/19/23 Range/Units 05:50 05:50 Urine Color Light Yellow Urine Appearance Cloudy H (Clear) Urine pH 5.5 (5.0-8.0) Ur Specific [place] 1.024 (1.001-1.035) Urine Protein Negative (Negative) Urine Glucose (UA) Negative (Negative) Urine Ketones Negative (Negative) Urine Blood Negative (Negative) Urine Nitrite Negative (Negative) Urine Bilirubin Negative (Negative) Urine Urobilinogen <2.0 (<2.0) mg/dL Ur Leukocyte Esterase Small H (Negative) Urine RBC 2 (0-5) /hpf Urine WBC 4 (0-5) /hpf Ur Squamous Epith Cells 24 H (0-4) /hpf Urine Bacteria Rare H (None) /hpf Urine Mucus Few H (None) /hpf Urine HCG, Qual Detected (Not Detectd) Disposition Clinical Impression: Fracture of tooth, Toothache Disposition: HOME SELF-CARE Condition: Stable Instructions (If sedation given, give patient instructions): Toothache (ED) Additional Instructions: Please return to the Emergency Department if symptoms worsen or any other concerns. Prescriptions: Amoxic-Pot Clav 875-125Mg [Augmentin 875-125] 1 tab PO Q12HR #20 tab Is patient prescribed a controlled substance at d/c from ED?: No Referrals: Yu Lowery MD [Primary Care Provider] - 1-2 days Time of Disposition: 06:35
[2023-09-19 06:23] LABS: Appearance,Urine Cloudy (Clear); Bacteria,Urine Rare /hpf; Bilirubin,Urine Negative (Negative); Blood,Urine Negative (Negative); Color,Urine Light Yellow; Glucose,Urine (UA) Negative (Negative); Ketones,Urine Negative (Negative); Leukocyte Esterase,Urine Small (Negative); Mucus,Urine Few /hpf; Nitrite,Urine Negative (Negative); PH, Urine 5.5 (5.0-8.0); Protein,Urine Negative (Negative); RBC,Urine 2 /hpf (0-5); Specific Gravity,Urine 1.024 (1.001-1.035); Squamous Epithelial Cell,Urine 24 /hpf (0-4); Urobilinogen,Urine <2.0 mg/dL (<2.0); WBC,Urine 4 /hpf (0-5)
== END 2023-09-19 06:48 | disposition home or self-care (01) ==
LOC: EC 05:41
DX: O99.891 Other specified diseases and conditions complicating pregnancy (principal); K03.81 Cracked tooth; O99.519 Diseases of the respiratory system complicating pregnancy, unspecified trimester; J45.909 Unspecified asthma, uncomplicated; O99.320 Drug use complicating pregnancy, unspecified trimester; F12.90 Cannabis use, unspecified, uncomplicated; Z86.59 Personal history of other mental and behavioral disorders; Z3A.00 Weeks of gestation of pregnancy not specified
CPT/HCPCS: 81001; 81025; 99283

== ENCOUNTER 2023-10-08 20:17 | Emergency (ER) | payer OTHER ==
[2023-10-08 21:11] VITALS: BP 124/87; PULSE 101; RESP 18; TEMP 98
[2023-10-08] MEDS ORDERED: diphenhydrAMINE 50 MG/ML 1 ML VIAL IVP STA (23:13)
[2023-10-08] MEDS ORDERED: SODIUM CHLORIDE 0.9% 2,000 ML IV ONE (23:13)
[2023-10-08] MEDS ORDERED: ONDANSETRON 4 MG/2 ML VIAL IVP STA (23:13)
[2023-10-08 23:53] LABS: Basophils % (A) 0 %; Eosinophils # (A) 0.1 k/uL (0-0.7); Eosinophils % (A) 1 %; HCT 41.7 % (34.0-46.0); HGB 14.5 gm/dL (11.4-16.0); Lymphocytes # (A) 2.8 k/uL (1.0-4.8); Lymphocytes % (A) 21 %; MCH 30.1 pg (25.0-35.0); MCHC 34.8 g/dL (31.0-37.0); MCV 86.3 fL (80.0-100.0); Mean Platelet Volume 7.5; Monocytes # (A) 0.5 k/uL (0-1.0); Monocytes % (A) 3 %; Neutrophils # (A) 10.1 k/uL (1.3-7.7); Neutrophils % (A) 74 %; Platelet Count 309 k/uL (150-450); RBC 4.82 m/uL (3.80-5.40); RDW 13.4 % (11.5-15.5); WBC 13.7 k/uL (3.8-10.6)
[2023-10-09 00:07] LABS: ALT 24 U/L (4-34); AST 18 U/L (14-36); African American GFR (CKD) >90 (>60 ml/min/1.73 sqM); Albumin 4.7 g/dL (3.5-5.0); Alkaline Phosphatase 77 U/L (38-126); Anion Gap 15 mmol/L; Blood Urea Nitrogen 12 mg/dL (7-17); Carbon Dioxide 20 mmol/L (22-30); Chloride 103 mmol/L (98-107); Glucose 103 mg/dL (74-99); Non-African American GFR(CKD) >90 (>60 ml/min/1.73 sqM); Potassium 3.8 mmol/L (3.5-5.1); Sodium 138 mmol/L (137-145); Total Bilirubin 0.7 mg/dL (0.2-1.3); Total Protein 7.9 g/dL (6.3-8.2)
[2023-10-09] MEDS: METOCLOPRAMIDE 5 MG/ML 2 ML VIAL IVP STA ×2 (01:39→01:44)
[2023-10-09] MEDS ORDERED: PROMETHAZINE 25 MG TAB PO STA (01:41)
[2023-10-09] MEDS ORDERED: PYRIDOXINE 50 MG TAB PO STA (01:42)
[2023-10-09 01:50] LABS: Appearance,Urine Cloudy (Clear); Bacteria,Urine Rare /hpf; Bilirubin,Urine Negative (Negative); Blood,Urine Negative (Negative); Color,Urine Yellow; Glucose,Urine (UA) Negative (Negative); Ketones,Urine 3+ (Negative); Leukocyte Esterase,Urine Negative (Negative); Mucus,Urine Many /hpf; Nitrite,Urine Positive (Negative); PH, Urine 5.5 (5.0-8.0); Protein,Urine Trace (Negative); RBC,Urine 1 /hpf (0-5); Specific Gravity,Urine 1.033 (1.001-1.035); Squamous Epithelial Cell,Urine 7 /hpf (0-4); Urobilinogen,Urine <2.0 mg/dL (<2.0); WBC,Urine 3 /hpf (0-5)
--- NOTE | 2023-10-09 02:22 | ED ---
Nausea/Vomiting/Diarrhea HPI - General Chief complaint: Nausea/Vomiting/Diarrhea Stated complaint: 7wks vomiting Time Seen by Provider: 10/08/23 22:45 Source: patient Mode of arrival: ambulatory Limitations: no limitations - History of Present Illness Initial comments: 28-year-old female currently about 6-8 weeks presenting with chief complaint of nausea and vomiting. She is a A1. Patient has history of hyperemesis gravidarum. 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 Patient is having nausea and vomiting that is similar to her previous pregnancies and HG flare-ups. She admits to some right sided abdominal pain. No vaginal bleeding or discharge. No flank pain. No fevers or chills. No URI like symptoms. No injury or trauma. - Related Data Home Medications Medication Instructions Recorded Confirmed Vit No.180/Iron/Folic 1 tab PO DAILY 12/27/19 12/29/19 [ Plus Tablet] Previous Rx's Medication Instructions Recorded Cephalexin [Keflex] 500 mg PO Q8HR #21 cap 12/27/19 Metoclopramide [Reglan] 10 mg PO TID PRN #40 tab 12/28/19 Citalopram Hydrobromide [CeleXA] 10 mg PO DAILY #30 tab 01/01/20 Famotidine [Pepcid] 20 mg PO BID #60 tablet 01/01/20 Penicillin V Potassium [Pen Vee K] 500 mg PO QID #40 tablet 02/25/20 Ondansetron [Zofran ODT] 4 mg PO Q8HR PRN #20 tab 03/17/21 Amoxic-Pot Clav 875-125Mg 1 tab PO Q12HR #20 tab 09/19/23 [Augmentin 875-125] Cephalexin [Keflex] 500 mg PO Q12HR 7 Days #14 cap 10/09/23 Ondansetron Odt [Zofran Odt] 4 mg PO Q8HR PRN #20 tab 10/09/23 Allergies Allergy/AdvReac Type Severity Reaction Status Date / Time No Known Allergies Allergy Verified 11/12/21 20:35 Review of Systems ROS Statement: Those systems with pertinent positive or pertinent negative responses have been documented in the HPI. ROS Other: All systems not noted in ROS Statement are negative. Past Medical History Past Medical History: Asthma, Musculoskeletal Disorder Additional Past Medical History / Comment(s): kidney stones, right hip " muscle rubs on the bone". hard of hearing in left ear. nearsighted. wears glasses History of Any Multi-Drug Resistant Organisms: None Reported Past Surgical History: No Surgical Hx Reported Additional Past Anesthesia/Blood Transfusion Reaction / Comment(s): no hx Past Psychological History: Bipolar Smoking Status: Current every day smoker, Vaper Past Alcohol Use History: Rare Past Drug Use History: Marijuana - Past Family History Father Additional Family Medical History / Comment(s): psychological history-, seizure, etoh hx Mother Family Medical History: Coronary Artery Disease (CAD), Thyroid Disorder Additional Family Medical History / Comment(s): diverticulitis, General Exam Limitations: no limitations General appearance: alert, in no apparent distress Head exam: Present: atraumatic, normocephalic, normal inspection Eye exam: Present: normal appearance, EOMI Neck exam: Present: normal inspection, full ROM Respiratory exam: Present: normal lung sounds bilaterally. Absent: respiratory distress, wheezes, rales, rhonchi, stridor Cardiovascular Exam: Present: regular rate, normal rhythm, normal heart sounds. Absent: systolic murmur, diastolic murmur, rubs, gallop, clicks GI/Abdominal exam: Present: soft, tenderness (Right-sided). Absent: distended, guarding, rebound, rigid Neurological exam: Present: alert, oriented X3 Psychiatric exam: Present: normal affect, normal mood Skin exam: Present: warm, dry, intact, normal color. Absent: rash Course Vital Signs 10/08/23 20:45 Temperature 98 F Pulse Rate 101 H Respiratory 18 Rate Blood Pressure 124/87 O2 Sat by Pulse 99 Oximetry Medical Decision Making - Medical Decision Making Was pt. sent in by a medical professional or institution (, PA, EQUIPMENT SALES SPECIALIST, urgent care, hospital, or correction...) When possible be specific @ -No Did you speak to anyone other than the patient for history (EMS, parent, family, police, friend...)? What history was obtained from this source @ -No Did you review nursing and triage notes (agree or disagree)? Why? @ -I reviewed and agree with nursing and triage notes Were old charts reviewed (outside hosp., previous admission, EMS record, old EKG, old radiological studies, urgent care reports/EKG's, correction records)? Report findings @ -No old charts were reviewed Differential Diagnosis (chest pain, altered mental status, abdominal pain women, abdominal pain men, vaginal bleeding, weakness, fever, dyspnea, syncope, headache, dizziness, GI bleed, back pain, seizure, CVA, palpatations, mental health, musculoskeletal)? @ -Differential includes hyperemesis gravidarum, gastroenteritis, kidney stone, UTI, this is not an all inclusive list EKG interpreted by me (3pts min.). @ -As above X-rays interpreted by me (1pt min.). @ -None done CT interpreted by me (1pt min.). @ -None done What testing was considered but not performed or refused? (CT, X-rays, U/S, labs)? Why? @ -None What meds were considered but not given or refused? Why? @ -None Did you discuss the management of the patient with other professionals (professionals i.e. , PA, EQUIPMENT SALES SPECIALIST, lab, RT, psych nurse, social service technician, order dispatcher, teacher, property officer, case managers)? Give summary @ -No Was smoking cessation discussed for >3mins.? @ -No Was critical care preformed (if so, how long)? @ -No Were there social determinants of health that impacted care today? How? (Homelessness, low income, unemployed, alcoholism, drug addiction, transportation, low edu. Level, literacy, decrease access to med. care, usp, rehab)? @ -No Was there de-escalation of care discussed even if they declined (Discuss DNR or withdrawal of care, Hospice)? DNR status @ -No What co-morbidities impacted this encounter? (DM, HTN, Smoking, COPD, CAD, Cancer, CVA, ARF, Chemo, Hep., AIDS, mental health diagnosis, sleep apnea, morbid obesity)? @ -None Was patient admitted / discharged? Hospital course, mention meds given and route, prescriptions, significant lab abnormalities, going to OR and other pertinent info. @ -28-year-old female currently about 16 weeks presenting with chief complaint of nausea and vomiting. She has history of hyperemesis gravidarum. She admits to some right-sided abdominal pain. No vaginal bleeding or discharge. History and physical exam were conducted. WBC 13.7, likely reactive. HCG 18549. Urine is positive for nitrites with 3+ ketones, likely secondary to dehydration. Patient was Benadryl, Zofran, Phenergan, vitamin B6, and saline bolus. Ultrasound report is pending. Patient informs us that she does not wish to wait any longer and would like to leave. It is explained to the patient that leaving before the ultrasound results the results in or permanent injury. Patient is of sound mind and body able to make her own decisions, she conveyed verbal understanding. Patient signs out AGAINST MEDICAL ADVICE. My attending is Dr. Sanchez Ultrasound resulted after the patient left AGAINST MEDICAL ADVICE. Single live intrauterine gestation at 6 weeks and 4 days. Small inferior subchorionic hemorrhage. Undiagnosed new problem with uncertain prognosis? @ -No Drug Therapy requiring intensive monitoring for toxicity (Heparin, Nitro, Insu lubna, Cardizem)? @ -No Were any procedures done? @ -No Diagnosis/symptom? @ -Nausea and vomiting in , UTI and Acute, or Chronic, or Acute on Chronic? @ -Acute Uncomplicated (without systemic symptoms) or Complicated (systemic symptoms)? @ -Uncomplicated Side effects of treatment? @ -No Exacerbation, Progression, or Severe Exacerbation? @ -No Poses a threat to life or bodily function? How? (Chest pain, [place], [place], pneumonia, PE, COPD, DKA, ARF, appy, cholecystitis, CVA, Diverticulitis, Homicidal, Suicidal, threat to staff... and all critical care pts) @ -Possible, given that the patient signed out AGAINST MEDICAL ADVICE before all results have returned there is possible threat to her and her , she conveys understanding regarding this - Lab Data Result diagrams: 10/08/23 23:26 10/08/23 23:26 Lab Results 10/08/23 10/08/23 10/09/23 Range/Units 23:26 23:26 01:08 WBC 13.7 H (3.8-10.6) k/uL RBC 4.82 (3.80-5.40) m/uL Hgb 14.5 (11.4-16.0) gm/dL Hct 41.7 (34.0-46.0) % MCV 86.3 (80.0-100.0) fL MCH 30.1 (25.0-35.0) pg MCHC 34.8 (31.0-37.0) g/dL RDW 13.4 (11.5-15.5) % Plt Count 309 (150-450) k/uL MPV 7.5 Neutrophils % 74 % Lymphocytes % 21 % Monocytes % 3 % Eosinophils % 1 % Basophils % 0 % Neutrophils # 10.1 H (1.3-7.7) k/uL Lymphocytes # 2.8 (1.0-4.8) k/uL Monocytes # 0.5 (0-1.0) k/uL Eosinophils # 0.1 (0-0.7) k/uL Basophils # 0.0 (0-0.2) k/uL Sodium 138 (137-145) mmol/L Potassium 3.8 (3.5-5.1) mmol/L Chloride 103 (98-107) mmol/L Carbon Dioxide 20 L (22-30) mmol/L Anion Gap 15 mmol/L BUN 12 (7-17) mg/dL Creatinine 0.59 (0.52-1.04) mg/dL Est GFR (CKD-EPI)AfAm >90 (>60 ml/min/1.73 sqM) Est GFR (CKD-EPI)NonAf >90 (>60 ml/min/1.73 sqM) Glucose 103 H (74-99) mg/dL Calcium 10.0 (8.4-10.2) mg/dL Total Bilirubin 0.7 (0.2-1.3) mg/dL AST 18 (14-36) U/L ALT 24 (4-34) U/L Alkaline Phosphatase 77 (38-126) U/L Total Protein 7.9 (6.3-8.2) g/dL Albumin 4.7 (3.5-5.0) g/dL HCG, Quant 74851.9 mIU/mL Urine Color Yellow Urine Appearance Cloudy H (Clear) Urine pH 5.5 (5.0-8.0) Ur Specific [place] 1.033 (1.001-1.035) Urine Protein Trace H (Negative) Urine Glucose (UA) Negative (Negative) Urine Ketones 3+ H (Negative) Urine Blood Negative (Negative) Urine Nitrite Positive H (Negative) Urine Bilirubin Negative (Negative) Urine Urobilinogen <2.0 (<2.0) mg/dL Ur Leukocyte Esterase Negative (Negative) Urine RBC 1 (0-5) /hpf Urine WBC 3 (0-5) /hpf Ur Squamous Epith Cells 7 H (0-4) /hpf Urine Bacteria Rare H (None) /hpf Urine Mucus Many H (None) /hpf Disposition Clinical Impression: Vomiting during Disposition: LEFT AGAINST MEDICAL ADVICE Condition: Undetermined Additional Instructions: Patient should follow-up with [facility] MACHINE [facility]EDER and report back to ER with any new or worsening symptoms Prescriptions: Cephalexin [Keflex] 500 mg PO Q12HR 7 Days #14 cap Ondansetron Odt [Zofran Odt] 4 mg PO Q8HR PRN #20 tab PRN Reason: Nausea Is patient prescribed a controlled substance at d/c from ED?: No Referrals: None,Stated [Primary Care Provider] - 1-2 days Time of Disposition: 02:21
--- NOTE | 2023-10-09 03:52 | US ---
EXAM: US First Trimester , Transabdominal CLINICAL HISTORY: Early with pelvic pain. TECHNIQUE: Real-time transabdominal obstetrical ultrasound of the maternal pelvis and a first trimester with image documentation. COMPARISON: No relevant prior studies available. FINDINGS: Gestation: Single live intrauterine gestation. A yolk sac and pole are identified. The crown-rump length is 6.8 mm, corresponding to 6 weeks 4 days. heart motion is detected at 126 bpm. There appears to be an inferior subchorionic hemorrhage measuring 21 x 9 x 20 mm. Placenta/amniotic fluid: Cannot be adequately evaluated due to the early gestational age. Uterus/cervix: Unremarkable. No myometrial mass. Ovaries: Probable 1.7 cm corpus luteum in the left ovary. Right ovary unremarkable. No mass. Free fluid: No free fluid. IMPRESSION: Single live intrauterine gestation at 6 weeks 4 days. Small inferior subchorionic hemorrhage.
== END 2023-10-09 02:12 | disposition left against medical advice (07) ==
LOC: EC 20:17
DX: O21.9 Vomiting of pregnancy, unspecified (principal); O99.511 Diseases of the respiratory system complicating pregnancy, first trimester; J45.909 Unspecified asthma, uncomplicated; O99.331 Smoking (tobacco) complicating pregnancy, first trimester; F17.290 Nicotine dependence, other tobacco product, uncomplicated; O99.321 Drug use complicating pregnancy, first trimester; F12.90 Cannabis use, unspecified, uncomplicated; Z86.59 Personal history of other mental and behavioral disorders; Z53.29 Procedure and treatment not carried out because of patient's decision for other reasons; Z3A.01 Less than 8 weeks gestation of pregnancy
CPT/HCPCS: 36415; 80053; 85025; 81001; 84702; 76801; 99284; 96374; 96375; 96361 ×2; J1200; J2405

== ENCOUNTER 2023-10-15 21:18 | Emergency (ER) | payer OTHER ==
[2023-10-15 21:32] VITALS: TEMP 97.8
[2023-10-15] MEDS ORDERED: SODIUM CHLORIDE 0.9% 1,000 ML IV ONE (22:40)
--- NOTE | 2023-10-15 22:45 | ED ---
General Adult HPI - General Source: patient Mode of arrival: ambulatory Limitations: no limitations <Shaista Mahajan - Last Filed: 10/15/23 22:44> <Dewey Alfredo - Last Filed: 10/16/23 02:48> - General Chief complaint: Weakness Stated complaint: 7 week vomiting Time Seen by Provider: 10/15/23 22:45 - History of Present Illness Initial comments: 28-year-old female currently 7 weeks presenting with chief complaint of lower abdominal cramping. No vaginal bleeding. Patient states she is also co ncerned because she felt like her heart was racing this evening. Patient has history of hyperemesis and states that she has been vomiting from late last night into the afternoon today. (Shaista Mahajan) - Related Data Home Medications Medication Instructions Recorded Confirmed Vit No.180/Iron/Folic 1 tab PO DAILY 12/27/19 12/29/19 [ Plus Tablet] Previous Rx's Medication Instructions Recorded Cephalexin [Keflex] 500 mg PO Q8HR #21 cap 12/27/19 Metoclopramide [Reglan] 10 mg PO TID PRN #40 tab 12/28/19 Citalopram Hydrobromide [CeleXA] 10 mg PO DAILY #30 tab 01/01/20 Famotidine [Pepcid] 20 mg PO BID #60 tablet 01/01/20 Penicillin V Potassium [Pen Vee K] 500 mg PO QID #40 tablet 02/25/20 Ondansetron [Zofran ODT] 4 mg PO Q8HR PRN #20 tab 03/17/21 Amoxic-Pot Clav 875-125Mg 1 tab PO Q12HR #20 tab 09/19/23 [Augmentin 875-125] Cephalexin [Keflex] 500 mg PO Q12HR 7 Days #14 cap 10/09/23 Ondansetron Odt [Zofran Odt] 4 mg PO Q8HR PRN #20 tab 10/09/23 Ondansetron Odt [Zofran ODT] 4 mg PO Q8HR PRN #10 tab 10/16/23 Allergies Allergy/AdvReac Type Severity Reaction Status Date / Time No Known Allergies Allergy Verified 11/12/21 20:35 Review of Systems ROS Other: All systems not noted in ROS Statement are negative. <Shaista Mahajan - Last Filed: 10/15/23 22:44> ROS Other: All systems not noted in ROS Statement are negative. <Dewey Alfredo - Last Filed: 10/16/23 02:48> ROS Statement: Those systems with pertinent positive or pertinent negative responses have been documented in the HPI. Past Medical History Past Medical History: Asthma, Musculoskeletal Disorder Additional Past Medical History / Comment(s): kidney stones, right hip " muscle rubs on the bone". hard of hearing in left ear. nearsighted. wears glasses History of Any Multi-Drug Resistant Organisms: None Reported Past Surgical History: No Surgical Hx Reported Additional Past Anesthesia/Blood Transfusion Reaction / Comment(s): no hx Past Psychological History: Bipolar Smoking Status: Current every day smoker, Vaper Past Alcohol Use History: Rare Past Drug Use History: Marijuana - Past Family History Father Additional Family Medical History / Comment(s): psychological history-, seizure, etoh hx Mother Family Medical History: Coronary Artery Disease (CAD), Thyroid Disorder Additional Family Medical History / Comment(s): diverticulitis, <Shaista Mahajan - Last Filed: 10/15/23 22:44> General Exam Limitations: no limitations <Shaista Mahajan - Last Filed: 10/15/23 22:44> - General Exam Comments Initial Comments: Visual Physical Exam Vital signs reviewed General: Well-appearing, nontoxic, no acute distress. Head: Normocephalic, atraumatic Eyes: PERRLA, EOMI ENT: Airway patent Chest: Nonlabored breathing Skin: No visual rash, normal skin tone Neuro: Alert and oriented 3 Musculoskeletal: No gross abnormalities (Shaista Mahajan) Course Vital Signs 10/15/23 21:26 Temperature 97.8 F Pulse Rate 111 H Respiratory 20 Rate Blood Pressure 123/82 O2 Sat by Pulse 99 Oximetry EKG Findings - EKG Results: EKG: interpreted by ERMD, sinus rhythm (with premature supraventricular co mplexes, rate 66 bpm), normal axis, normal QRS, normal ST/T <Dewey Alfredo - Last Filed: 10/16/23 02:48> Medical Decision Making - Lab Data Result diagrams: 10/15/23 23:40 10/15/23 23:40 <Dewey Alfredo - Last Filed: 10/16/23 02:48> - Lab Data Lab Results 10/15/23 10/15/23 10/15/23 Range/Units 22:51 23:40 23:40 WBC 12.7 H (3.8-10.6) k/uL RBC 4.43 (3.80-5.40) m/uL Hgb 13.0 (11.4-16.0) gm/dL Hct 38.4 (34.0-46.0) % MCV 86.7 (80.0-100.0) fL MCH 29.2 (25.0-35.0) pg MCHC 33.7 (31.0-37.0) g/dL RDW 13.5 (11.5-15.5) % Plt Count 293 (150-450) k/uL MPV 7.5 Neutrophils % 63 % Lymphocytes % 29 % Monocytes % 4 % Eosinophils % 2 % Basophils % 0 % Neutrophils # 8.0 H (1.3-7.7) k/uL Lymphocytes # 3.7 (1.0-4.8) k/uL Monocytes # 0.6 (0-1.0) k/uL Eosinophils # 0.2 (0-0.7) k/uL Basophils # 0.0 (0-0.2) k/uL Sodium 135 L (137-145) mmol/L Potassium 3.9 (3.5-5.1) mmol/L Chloride 101 (98-107) mmol/L Carbon Dioxide 22 (22-30) mmol/L Anion Gap 12 mmol/L BUN 10 (7-17) mg/dL Creatinine 0.63 (0.52-1.04) mg/dL Est GFR (CKD-EPI)AfAm >90 (>60 ml/min/1.73 sqM) Est GFR (CKD-EPI)NonAf >90 (>60 ml/min/1.73 sqM) Glucose 91 (74-99) mg/dL Calcium 9.5 (8.4-10.2) mg/dL Total Bilirubin 0.3 (0.2-1.3) mg/dL AST 18 (14-36) U/L ALT 21 (4-34) U/L Alkaline Phosphatase 57 (38-126) U/L Total Protein 6.8 (6.3-8.2) g/dL Albumin 4.1 (3.5-5.0) g/dL HCG, Quant 20616.2 mIU/mL Urine Color Yellow Urine Appearance Clear (Clear) Urine pH 6.0 (5.0-8.0) Ur Specific [place] 1.021 (1.001-1.035) Urine Protein Negative (Negative) Urine Glucose (UA) Negative (Negative) Urine Ketones Negative (Negative) Urine Blood Negative (Negative) Urine Nitrite Negative (Negative) Urine Bilirubin Negative (Negative) Urine Urobilinogen <2.0 (<2.0) mg/dL Ur Leukocyte Esterase Negative (Negative) Disposition <Shaista Mahajan - Last Filed: 10/15/23 22:44> Is patient prescribed a controlled substance at d/c from ED?: No <Dewey Alfredo - Last Filed: 10/16/23 02:48> Clinical Impression: Hyperemesis complicating , antepartum Disposition: HOME SELF-CARE Condition: Good Instructions (If sedation given, give patient instructions): Hyperemesis Grav idarum (ED) Prescriptions: Ondansetron Odt [Zofran ODT] 4 mg PO Q8HR PRN #10 tab PRN Reason: Nausea Referrals: None,Stated [Primary Care Provider] - 1-2 days
[2023-10-15 23:41] LABS: Appearance,Urine Clear (Clear); Bilirubin,Urine Negative (Negative); Blood,Urine Negative (Negative); Color,Urine Yellow; Glucose,Urine (UA) Negative (Negative); Ketones,Urine Negative (Negative); Leukocyte Esterase,Urine Negative (Negative); Nitrite,Urine Negative (Negative); Protein,Urine Negative (Negative); Specific Gravity,Urine 1.021 (1.001-1.035); Urobilinogen,Urine <2.0 mg/dL (<2.0)
[2023-10-15 23:51] LABS: Basophils % (A) 0 %; Eosinophils # (A) 0.2 k/uL (0-0.7); Eosinophils % (A) 2 %; HCT 38.4 % (34.0-46.0); Lymphocytes # (A) 3.7 k/uL (1.0-4.8); Lymphocytes % (A) 29 %; MCH 29.2 pg (25.0-35.0); MCHC 33.7 g/dL (31.0-37.0); MCV 86.7 fL (80.0-100.0); Mean Platelet Volume 7.5; Monocytes # (A) 0.6 k/uL (0-1.0); Monocytes % (A) 4 %; Neutrophils % (A) 63 %; Platelet Count 293 k/uL (150-450); RBC 4.43 m/uL (3.80-5.40); RDW 13.5 % (11.5-15.5); WBC 12.7 k/uL (3.8-10.6)
[2023-10-16 00:38] LABS: ALT 21 U/L (4-34); AST 18 U/L (14-36); African American GFR (CKD) >90 (>60 ml/min/1.73 sqM); Albumin 4.1 g/dL (3.5-5.0); Alkaline Phosphatase 57 U/L (38-126); Anion Gap 12 mmol/L; Blood Urea Nitrogen 10 mg/dL (7-17); Calcium 9.5 mg/dL (8.4-10.2); Carbon Dioxide 22 mmol/L (22-30); Chloride 101 mmol/L (98-107); Glucose 91 mg/dL (74-99); Non-African American GFR(CKD) >90 (>60 ml/min/1.73 sqM); Potassium 3.9 mmol/L (3.5-5.1); Sodium 135 mmol/L (137-145); Total Bilirubin 0.3 mg/dL (0.2-1.3); Total Protein 6.8 g/dL (6.3-8.2)
--- NOTE | 2023-10-16 01:22 | US ---
EXAM: US First Trimester , Transabdominal CLINICAL HISTORY: ITS.REASON US Reason: cramping TECHNIQUE: Real-time transabdominal obstetrical ultrasound of the maternal pelvis and a first trimester with image documentation. COMPARISON: 10/09/2023. FINDINGS: Gestation: Single viable intrauterine gestation is noted. [place]-rump length measures 1.5 cm corresponding to 7 weeks 6 days. heart rate is 156 bpm. Placenta/amniotic fluid: Cannot be adequately evaluated due to the early gestational age. Uterus/cervix: Uterus measures 9.2 x 6.2 x 6.9 cm. Cervix measures 4 cm and is closed. No myometrial mass. Ovaries: Right ovary measures 2.8 x 1.9 x 1.3 cm. Left ovary measures 2.9 x 2.1 x 1.8 cm. No mass. Free fluid: No free fluid. IMPRESSION: 1. Single viable intrauterine gestation corresponding to 7 weeks 6 days. 2. heart rate is 156 bpm.
--- NOTE | 2023-10-16 01:23 | XR ---
EXAM: XR Chest, 2 Views CLINICAL HISTORY: ITS.REASON XR Reason: palpitations TECHNIQUE: Frontal and lateral views of the chest. COMPARISON: No previous studies. FINDINGS: Lungs: Unremarkable. No consolidation. No consolidative changes. Pleural space: Unremarkable. No pneumothorax. No pleural effusions. Heart: Unremarkable. No cardiomegaly. Mediastinum: Cardiomediastinal silhouette unremarkable. Bones/joints: Osseous structures and soft tissues are unremarkable. Gentle levoscoliosis. No acute fracture. IMPRESSION: No active disease.
[2023-10-16] MEDS ORDERED: DEXTROSE 5%-0.45% NACL 1,000 ML IV ONE (01:52)
[2023-10-16 04:04] VITALS: BP 113/51; PULSE 79; RESP 17
== END 2023-10-16 04:02 | disposition home or self-care (01) ==
LOC: EC 21:18
DX: O21.0 Mild hyperemesis gravidarum (principal); O99.511 Diseases of the respiratory system complicating pregnancy, first trimester; J45.909 Unspecified asthma, uncomplicated; O99.331 Smoking (tobacco) complicating pregnancy, first trimester; F17.290 Nicotine dependence, other tobacco product, uncomplicated; O99.321 Drug use complicating pregnancy, first trimester; F12.90 Cannabis use, unspecified, uncomplicated; Z3A.01 Less than 8 weeks gestation of pregnancy
CPT/HCPCS: 36415; 71046; 76801; 80053; 81003; 84702; 85025; 93005; 96360; 99285

== ENCOUNTER 2023-11-16 05:25 | Emergency (ER) | payer OTHER ==
[2023-11-16 05:54] VITALS: RESP 18
[2023-11-16 05:59] LABS: Basophils % (A) 0 %; Eosinophils # (A) 0.1 k/uL (0-0.7); Eosinophils % (A) 1 %; HCT 39.3 % (34.0-46.0); HGB 13.7 gm/dL (11.4-16.0); Lymphocytes # (A) 1.8 k/uL (1.0-4.8); Lymphocytes % (A) 20 %; MCH 30.5 pg (25.0-35.0); MCHC 34.9 g/dL (31.0-37.0); MCV 87.3 fL (80.0-100.0); Mean Platelet Volume 7.6; Monocytes # (A) 0.3 k/uL (0-1.0); Monocytes % (A) 3 %; Neutrophils # (A) 6.9 k/uL (1.3-7.7); Neutrophils % (A) 75 %; Platelet Count 259 k/uL (150-450); RDW 13.1 % (11.5-15.5); WBC 9.2 k/uL (3.8-10.6)
[2023-11-16 06:08] LABS: ALT 15 U/L (4-34); AST 21 U/L (14-36); African American GFR (CKD) >90 (>60 ml/min/1.73 sqM); Albumin 4.3 g/dL (3.5-5.0); Alkaline Phosphatase 61 U/L (38-126); Anion Gap 12 mmol/L; Blood Urea Nitrogen 8 mg/dL (7-17); Calcium 9.7 mg/dL (8.4-10.2); Carbon Dioxide 19 mmol/L (22-30); Chloride 106 mmol/L (98-107); Glucose 107 mg/dL (74-99); Non-African American GFR(CKD) >90 (>60 ml/min/1.73 sqM); Potassium 4.1 mmol/L (3.5-5.1); Sodium 137 mmol/L (137-145); Total Bilirubin 0.5 mg/dL (0.2-1.3); Total Protein 7.2 g/dL (6.3-8.2)
[2023-11-16] MEDS ORDERED: SODIUM CHLORIDE 0.9% 2,000 ML IV ONE (06:14)
[2023-11-16] MEDS ORDERED: METOCLOPRAMIDE 5 MG/ML 2 ML VIAL IVP STA (06:16)
[2023-11-16] MEDS ORDERED: diphenhydrAMINE 50 MG/ML 1 ML VIAL IVP STA (06:16)
--- NOTE | 2023-11-16 06:32 | ED ---
Nausea/Vomiting/Diarrhea HPI - General Chief complaint: Nausea/Vomiting/Diarrhea Stated complaint: 12 wks fever V/N/D Time Seen by Provider: 11/16/23 06:08 Source: patient, RN notes reviewed Mode of arrival: wheelchair Limitations: no limitations - History of Present Illness Initial comments: 28-year-old female presents emergency department tingling nausea vomiting . 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 She states she does have a history of hyperemesis. Patient denies any vaginal bleeding or vaginal discharge no localized abdominal pain she states she's been vomiting all night in which she feels dehydrated. Patient states she did have some intermittent symptoms over the last several weeks. - Related Data Home Medications Medication Instructions Recorded Confirmed Vit No.180/Iron/Folic 1 tab PO DAILY 12/27/19 12/29/19 [ Plus Tablet] Previous Rx's Medication Instructions Recorded Cephalexin [Keflex] 500 mg PO Q8HR #21 cap 12/27/19 Metoclopramide [Reglan] 10 mg PO TID PRN #40 tab 12/28/19 Citalopram Hydrobromide [CeleXA] 10 mg PO DAILY #30 tab 01/01/20 Famotidine [Pepcid] 20 mg PO BID #60 tablet 01/01/20 Penicillin V Potassium [Pen Vee K] 500 mg PO QID #40 tablet 02/25/20 Ondansetron [Zofran ODT] 4 mg PO Q8HR PRN #20 tab 03/17/21 Amoxic-Pot Clav 875-125Mg 1 tab PO Q12HR #20 tab 09/19/23 [Augmentin 875-125] Cephalexin [Keflex] 500 mg PO Q12HR 7 Days #14 cap 10/09/23 Ondansetron Odt [Zofran Odt] 4 mg PO Q8HR PRN #20 tab 10/09/23 Ondansetron Odt [Zofran ODT] 4 mg PO Q8HR PRN #10 tab 10/16/23 Ondansetron Odt [Zofran Odt] 4 mg PO Q8HR PRN #10 tab 11/16/23 Allergies Allergy/AdvReac Type Severity Reaction Status Date / Time No Known Allergies Allergy Verified 12/26/23 05:34 Review of Systems ROS Statement: Those systems with pertinent positive or pertinent negative responses have been documented in the HPI. ROS Other: All systems not noted in ROS Statement are negative. Past Medical History Past Medical History: Asthma, Musculoskeletal Disorder Additional Past Medical History / Comment(s): kidney stones, right hip " muscle rubs on the bone". hard of hearing in left ear. nearsighted. wears glasses History of Any Multi-Drug Resistant Organisms: None Reported Past Surgical History: No Surgical Hx Reported Additional Past Anesthesia/Blood Transfusion Reaction / Comment(s): no hx Past Psychological History: Bipolar Smoking Status: Current every day smoker, Vaper Past Alcohol Use History: Rare Past Drug Use History: Marijuana - Past Family History Father Additional Family Medical History / Comment(s): psychological history-, seizure, etoh hx Mother Family Medical History: Coronary Artery Disease (CAD), Thyroid Disorder Additional Family Medical History / Comment(s): diverticulitis, General Exam Limitations: no limitations General appearance: alert, in no apparent distress Head exam: Present: atraumatic, normocephalic, normal inspection Eye exam: Present: normal appearance, PERRL, EOMI. Absent: scleral icterus, conjunctival injection, periorbital swelling ENT exam: Present: normal exam, mucous membranes moist Neck exam: Present: normal inspection, full ROM. Absent: tenderness, meningismus, lymphadenopathy Respiratory exam: Present: normal lung sounds bilaterally. Absent: respiratory distress, wheezes, rales, rhonchi, stridor Cardiovascular Exam: Present: regular rate, normal rhythm, normal heart sounds. Absent: systolic murmur, diastolic murmur, rubs, gallop, clicks GI/Abdominal exam: Present: soft, normal bowel sounds. Absent: distended, tenderness, guarding, rebound, rigid Neurological exam: Present: alert, oriented X3 Skin exam: Present: warm, dry, intact, normal color. Absent: rash Course Vital Signs 11/16/23 05:32 Temperature 97.3 F L Pulse Rate 72 Respiratory 18 Rate Blood Pressure 126/76 O2 Sat by Pulse 97 Oximetry Medical Decision Making - Medical Decision Making Was pt. sent in by a medical professional or institution (, PA, [employer], urgent care, hospital, or half-way...) When possible be specific @ -No Did you speak to anyone other than the patient for history (EMS, parent, family, police, friend...)? What history was obtained from this source @ -No Did you review nursing and triage notes (agree or disagree)? Why? @ -I reviewed and agree with nursing and triage notes Were old charts reviewed (outside hosp., previous admission, EMS record, old EKG, old radiological studies, urgent care reports/EKG's, half-way records)? Report findings @ -No old charts were reviewed Differential Diagnosis (chest pain, altered mental status, abdominal pain women, abdominal pain men, vaginal bleeding, weakness, fever, dyspnea, syncope, headache, dizziness, GI bleed, back pain, seizure, CVA, palpatations, mental health, musculoskeletal)? @ -Differential Abdominal Pain Women: Appendicitis, Cholecystitis, diverticulosis, ischemic bowel, pancreatitis, hepatitis, UTI, gastroenteritis, AAA, incarcerated hernia, bowel obstruction, constipation, inflammatory bowel, hepatitis, peptic ulcer disease, splenic infarction, perforated viscus, vulvitis, ovarian torsion, PID, kidney stone, placenta abruption, this is not meant to be an all-inclusive listn EKG interpreted by me (3pts min.). @ -[On X-rays interpreted by me (1pt min.). @ -None done CT interpreted by me (1pt min.). @ -None done U/S interpreted by me (1pt. min.). @ -None done What testing was considered but not performed or refused? (CT, X-rays, U/S, labs)? Why? @ -None What meds were considered but not given or refused? Why? @ -None Did you discuss the management of the patient with other professionals (professionals i.e. , PA, [employer], lab, RT, psych nurse, psychiatric social worker, employment appeals examiner, teacher, textile technical officer, case mgr)? Give summary @ -No Was smoking cessation discussed for >3mins.? @ -No Was critical care preformed (if so, how long)? @ -No Were there social determinants of health that impacted care today? How? (H omelessness, low income, unemployed, alcoholism, drug addiction, transportation, low edu. Level, literacy, decrease access to med. care, [place] [facility], rehab)? @ -No Was there de-escalation of care discussed even if they declined (Discuss DNR or withdrawal of care, Hospice)? DNR status @ -No What co-morbidities impacted this encounter? (DM, HTN, Smoking, COPD, CAD, Cancer, CVA, ARF, Chemo, Hep., AIDS, mental health diagnosis, sleep apnea, morbid obesity)? @ -None Was patient admitted / discharged? Hospital course, mention meds given and route, prescriptions, significant lab abnormalities, going to OR and other pertinent info. @ -Discharge patient feels great improved after IV fluids and antiemetics. Patient is a history of hyperemesis gravidarum. Patient has no abdominal pain denies any vaginal bleeding or vaginal discharge. Patient will be discharged in stable condition with follow-up with her ELECTRICAL ENGINEERING MANAGER return parameters were discussed. Undiagnosed new problem with uncertain prognosis? @ -No Drug Therapy requiring intensive monitoring for toxicity (Heparin, Nitro, Insulin, Cardizem)? @ -No Were any procedures done? @ -No Diagnosis/symptom? @ -Nausea vomiting Acute, or Chronic, or Acute on Chronic? @ -Acute Uncomplicated (without systemic symptoms) or Complicated (systemic symptoms)? @ -Uncomplicated Side effects of treatment? @ -No Exacerbation, Progression, or Severe Exacerbation? @ -No Poses a threat to life or bodily function? How? (Chest pain, [place], [place], pneumonia, PE, COPD, DKA, ARF, appy, cholecystitis, CVA, Diverticulitis, Homicidal, Suicidal, threat to staff... and all critical care pts) @ -No - Lab Data Result diagrams: 11/16/23 05:54 11/16/23 05:54 Lab Results 11/16/23 11/16/23 11/16/23 Range/Units 05:54 05:54 07:09 WBC 9.2 (3.8-10.6) k/uL RBC 4.50 (3.80-5.40) m/uL Hgb 13.7 (11.4-16.0) gm/dL Hct 39.3 (34.0-46.0) % MCV 87.3 (80.0-100.0) fL MCH 30.5 (25.0-35.0) pg MCHC 34.9 (31.0-37.0) g/dL RDW 13.1 (11.5-15.5) % Plt Count 259 (150-450) k/uL MPV 7.6 Neutrophils % 75 % Lymphocytes % 20 % Monocytes % 3 % Eosinophils % 1 % Basophils % 0 % Neutrophils # 6.9 (1.3-7.7) k/uL Lymphocytes # 1.8 (1.0-4.8) k/uL Monocytes # 0.3 (0-1.0) k/uL Eosinophils # 0.1 (0-0.7) k/uL Basophils # 0.0 (0-0.2) k/uL Sodium 137 (137-145) mmol/L Potassium 4.1 (3.5-5.1) mmol/L Chloride 106 (98-107) mmol/L Carbon Dioxide 19 L (22-30) mmol/L Anion Gap 12 mmol/L BUN 8 (7-17) mg/dL Creatinine 0.57 (0.52-1.04) mg/dL Est GFR (CKD-EPI)AfAm >90 (>60 ml/min/1.73 sqM) Est GFR (CKD-EPI)NonAf >90 (>60 ml/min/1.73 sqM) Glucose 107 H (74-99) mg/dL Calcium 9.7 (8.4-10.2) mg/dL Total Bilirubin 0.5 (0.2-1.3) mg/dL AST 21 (14-36) U/L ALT 15 (4-34) U/L Alkaline Phosphatase 61 (38-126) U/L Total Protein 7.2 (6.3-8.2) g/dL Albumin 4.3 (3.5-5.0) g/dL Urine Color Yellow Urine Appearance Clear (Clear) Urine pH 8.5 H (5.0-8.0) Ur Specific [place] 1.019 (1.001-1.035) Urine Protein 1+ H (Negative) Urine Glucose (UA) Negative (Negative) Urine Ketones 1+ H (Negative) Urine Blood Negative (Negative) Urine Nitrite Negative (Negative) Urine Bilirubin Negative (Negative) Urine Urobilinogen <2.0 (<2.0) mg/dL Ur Leukocyte Esterase Negative (Negative) Urine RBC 1 (0-5) /hpf Urine WBC 1 (0-5) /hpf Ur Squamous Epith Cells 1 (0-4) /hpf Urine Mucus Occasional H (None) /hpf Disposition Clinical Impression: Nausea/vomiting in Disposition: HOME SELF-CARE Condition: Stable Instructions (If sedation given, give patient instructions): Nausea and Vomiting in (ED) Additional Instructions: Please return to the Emergency Department if symptoms worsen or any other concerns. Prescriptions: Ondansetron Odt [Zofran Odt] 4 mg PO Q8HR PRN #10 tab PRN Reason: Nausea Is patient prescribed a controlled substance at d/c from ED?: No Referrals: uY Lowery MD [Primary Care Provider] - 1-2 days Time of Disposition: 07:47
[2023-11-16 07:30] LABS: Appearance,Urine Clear (Clear); Bilirubin,Urine Negative (Negative); Blood,Urine Negative (Negative); Color,Urine Yellow; Glucose,Urine (UA) Negative (Negative); Ketones,Urine 1+ (Negative); Leukocyte Esterase,Urine Negative (Negative); Mucus,Urine Occasional /hpf; Nitrite,Urine Negative (Negative); PH, Urine 8.5 (5.0-8.0); Protein,Urine 1+ (Negative); RBC,Urine 1 /hpf (0-5); Specific Gravity,Urine 1.019 (1.001-1.035); Squamous Epithelial Cell,Urine 1 /hpf (0-4); Urobilinogen,Urine <2.0 mg/dL (<2.0); WBC,Urine 1 /hpf (0-5)
[2023-11-16 09:07] VITALS: BP 124/81; PULSE 70; TEMP 97.6
== END 2023-11-16 09:05 | disposition home or self-care (01) ==
LOC: EC 05:25
DX: O21.9 Vomiting of pregnancy, unspecified (principal); O99.511 Diseases of the respiratory system complicating pregnancy, first trimester; J45.909 Unspecified asthma, uncomplicated; O99.331 Smoking (tobacco) complicating pregnancy, first trimester; F17.290 Nicotine dependence, other tobacco product, uncomplicated; F12.90 Cannabis use, unspecified, uncomplicated; O99.321 Drug use complicating pregnancy, first trimester; Z86.59 Personal history of other mental and behavioral disorders; Z3A.12 12 weeks gestation of pregnancy
CPT/HCPCS: 36415; 80053; 85025; 81001; 99283; 96374; 96375; 96361; J1200; J2765

== ENCOUNTER 2023-11-23 11:02 | Emergency (ER) | payer OTHER ==
--- NOTE | 2023-11-23 11:26 | ED ---
General Adult HPI - General Source: RN notes reviewed <Celeste Vines - Last Filed: 11/23/23 11:25> - General Source: patient, RN notes reviewed Mode of arrival: ambulatory Limitations: no limitations <Jasmyne Dejesus - Last Filed: 11/24/23 10:25> - General Chief complaint: Nausea/Vomiting/Diarrhea Stated complaint: Vomiting Time Seen by Provider: 11/23/23 11:25 - History of Present Illness Initial comments: 28-year-old female who stepped 14 weeks presents the emergency department with a chief complaint of nausea and vomiting. Patient reports acute nausea and vomiting over the last 4 days after she has experienced nausea and vomiting during the course of her . Denies any vaginal bleeding cramping or low back pain vaginal discharge. (Celeste Vines) This is a 28-year-old female who presents to the emergency department for nausea and vomiting. Patient is approximately 14 weeks and reports a history of hyperemesis gravidarum. This is her 4th . She has had prescriptions for Zofran and Reglan in the past, which are usually effective, however she ran out of them and has felt ill for the last 4 days. Denies any abdominal pain/cramping or vaginal bleeding/discharge. She has not yet been able to establish with an REACHER. (Jasmyne Dejesus) - Related Data Home Medications Medication Instructions Recorded Confirmed Vit No.180/Iron/Folic 1 tab PO DAILY 12/27/19 12/29/19 [ Plus Tablet] Previous Rx's Medication Instructions Recorded Cephalexin [Keflex] 500 mg PO Q8HR #21 cap 12/27/19 Metoclopramide [Reglan] 10 mg PO TID PRN #40 tab 12/28/19 Citalopram Hydrobromide [CeleXA] 10 mg PO DAILY #30 tab 01/01/20 Famotidine [Pepcid] 20 mg PO BID #60 tablet 01/01/20 Penicillin V Potassium [Pen Vee K] 500 mg PO QID #40 tablet 02/25/20 Ondansetron [Zofran ODT] 4 mg PO Q8HR PRN #20 tab 03/17/21 Amoxic-Pot Clav 875-125Mg 1 tab PO Q12HR #20 tab 09/19/23 [Augmentin 875-125] Cephalexin [Keflex] 500 mg PO Q12HR 7 Days #14 cap 10/09/23 Ondansetron Odt [Zofran Odt] 4 mg PO Q8HR PRN #20 tab 10/09/23 Ondansetron Odt [Zofran ODT] 4 mg PO Q8HR PRN #10 tab 10/16/23 Ondansetron Odt [Zofran Odt] 4 mg PO Q8HR PRN #10 tab 11/16/23 Metoclopramide [Reglan] 10 mg PO Q6H PRN #30 tab 11/23/23 Ondansetron Odt [Zofran Odt] 4 mg PO Q8HR PRN #30 tab 11/23/23 Allergies Allergy/AdvReac Type Severity Reaction Status Date / Time No Known Allergies Allergy Verified 11/23/23 11:28 Review of Systems ROS Other: All systems not noted in ROS Statement are negative. <Celeste Vines - Last Filed: 11/23/23 11:25> ROS Other: All systems not noted in ROS Statement are negative. <Jasmyne Dejesus - Last Filed: 11/24/23 10:25> ROS Statement: Those systems with pertinent positive or pertinent negative responses have been documented in the HPI. Past Medical History Past Medical History: Asthma, Musculoskeletal Disorder Additional Past Medical History / Comment(s): kidney stones, right hip " muscle rubs on the bone". hard of hearing in left ear. nearsighted. wears glasses History of Any Multi-Drug Resistant Organisms: None Reported Past Surgical History: No Surgical Hx Reported Additional Past Anesthesia/Blood Transfusion Reaction / Comment(s): no hx Past Psychological History: Bipolar Smoking Status: Current every day smoker, Vaper Past Alcohol Use History: Rare Past Drug Use History: Marijuana - Past Family History Father Additional Family Medical History / Comment(s): psychological history-, seizure, etoh hx Mother Family Medical History: Coronary Artery Disease (CAD), Thyroid Disorder Additional Family Medical History / Comment(s): diverticulitis, <Celeste Vines - Last Filed: 11/23/23 11:25> General Exam <Celeste Vines - Last Filed: 11/23/23 11:25> Limitations: no limitations General appearance: alert, in no apparent distress Head exam: Present: atraumatic, normocephalic, normal inspection Respiratory exam: Present: normal lung sounds bilaterally. Absent: respiratory distress, wheezes, rales, rhonchi, stridor Cardiovascular Exam: Present: regular rate, normal rhythm, normal heart sounds. Absent: systolic murmur, diastolic murmur, rubs, gallop, clicks Neurological exam: Present: alert, oriented X3, CN II-XII intact Psychiatric exam: Present: normal affect, normal mood Skin exam: Present: warm, dry, intact, normal color. Absent: rash <Jasmyne Dejesus - Last Filed: 11/24/23 10:25> - General Exam Comments Initial Comments: Visual Physical Exam Vital signs reviewed General: Well-appearing, nontoxic, no acute distress. Head: Normocephalic, atraumatic Eyes: PERRLA, EOMI ENT: Airway patent Chest: Nonlabored breathing Skin: No visual rash, normal skin tone Neuro: Alert and oriented 3 Musculoskeletal: No gross abnormalities (Celeste Vines) Course Vital Signs 11/23/23 11/23/23 11:24 14:45 Temperature 98 F Pulse Rate 80 80 Respiratory 18 18 Rate Blood Pressure 136/91 125/80 O2 Sat by Pulse 100 100 Oximetry Medical Decision Making <Celeste Vines - Last Filed: 11/23/23 11:25> - Lab Data Result diagrams: 11/23/23 11:56 11/23/23 11:56 - Radiology Data Radiology results: report reviewed, image reviewed <Jasmyne Dejesus - Last Filed: 11/24/23 10:25> - Medical Decision Making I performed the quick note portion of this exam, verbal signature Celeste Vines PA-C (Celeste Vines) This is a 28-year-old female who presents to the emergency department for nausea and vomiting in . Was pt. sent in by a medical professional or institution? @ -No Did you speak to anyone other than the patient for history? @ -No Did you review nursing and triage notes? @ -Yes, and I agree, it is accurate with regards to the patient's symptoms. Were old charts reviewed? @ -No Differential Diagnosis? @ -Differential Nausea and Vomiting: Gastroenteritis, cholecystitis, appendicitis, pancreatitis, migraine, benign positional vertigo, food borne illness, pyelonephritis, irritable bowel syndrome, influenza, Covid, GERD, incarcerated hernia, intestinal obstruction, this is not meant to be an all-inclusive list. EKG interpreted by me (3pts min.)? @ -Not obtained X-rays interpreted by me (1pt min.)? @ -Not obtained CT interpreted by me (1pt min.)? @ -Not obtained U/S interpreted by me (1pt. min.)? @ - US obtained. My interpretation identifies a single live IUP. What testing was considered but not performed? (CT, X-rays, U/S, labs)? Why? @ -None What meds were considered but not given? Why? @ -None Did you discuss the management of the patient with other professionals? @ -No Did you reconcile home meds? @ -No Was smoking cessation discussed for >3mins.? @ -No Was critical care preformed (if so, how long)? @ -No Were there social determinants of health that impacted care today? How? (Homelessness, low income, unemployed, alcoholism, drug addiction, transportation, low edu. Level, literacy, decrease access to med. care, shelter, rehab)? @ -No Was there de-escalation of care discussed even if they declined? (Discuss DNR or withdrawal of care, Hospice)? @ -No What co-morbidities impacted this encounter? (DM, HTN, Smoking, COPD, CAD, Cancer, CVA, Hep., AIDS, mental health diagnosis, sleep apnea, morbid obesity)? @ - Was patient admitted / discharged? @ -Discharged. Lab work obtained and found to be unremarkable. Covid, influenza, and RSV testing were negative. Urinalysis negative for signs of infection. Her symptoms were well controlled with IV fluids and Zofran. She did have some residual nausea afterwards that was treated with Reglan and she was tolerating oral intake afterwards. We did attempt to get heart tones, however OB nurses were unable to auscultate this, which they advised may be due to her gestational age, and recommended an US. US was obtained demonstrating a single live IUP. Refill on Zofran and Reglan provided with dosing instructions reviewed. She is advised to slowly advance her diet as tolerated and remain well hydrated. She is also instructed to continue trying to get an appointment with REACHER. Undiagnosed new problem with uncertain prognosis? @ -None Drug Therapy requiring intensive monitoring for toxicity (Heparin, Nitro, Insulin, Cardizem)? @ -None Were any procedures done? @ -None Diagnosis/symptom? @ -Nausea and vomiting in Acute, or Chronic, or Acute on Chronic? @ -Acute Uncomplicated (without systemic symptoms) or Complicated (systemic symptoms)? @ -Uncomplicated Side effects of treatment? @ -None Exacerbation, Progression, or Severe Exacerbation] @ -Not applicable Poses a threat to life or bodily function? @ -Unlikely Return precautions reviewed in depth, the patient is instructed to return to the emergency department with any new, worsening, or concerning symptoms. Patient verbalized understanding. This case was discussed in detail with the attending ED physician, Dr. Hua. Presentation, findings, and treatment plan discussed in detail as well. (Jasmyne Dejesus) - Lab Data Lab Results 11/23/23 11/23/23 11/23/23 Range/Units 11:56 11:56 11:56 WBC 9.9 (3.8-10.6) k/uL RBC 4.89 (3.80-5.40) m/uL Hgb 14.6 (11.4-16.0) gm/dL Hct 42.8 (34.0-46.0) % MCV 87.4 (80.0-100.0) fL MCH 29.9 (25.0-35.0) pg MCHC 34.2 (31.0-37.0) g/dL RDW 13.4 (11.5-15.5) % Plt Count 282 (150-450) k/uL MPV 8.0 Neutrophils % 77 % Lymphocytes % 17 % Monocytes % 5 % Eosinophils % 0 % Basophils % 0 % Neutrophils # 7.7 (1.3-7.7) k/uL Lymphocytes # 1.6 (1.0-4.8) k/uL Monocytes # 0.5 (0-1.0) k/uL Eosinophils # 0.0 (0-0.7) k/uL Basophils # 0.0 (0-0.2) k/uL Sodium 141 (137-145) mmol/L Potassium 4.1 (3.5-5.1) mmol/L Chloride 102 (98-107) mmol/L Carbon Dioxide 24 (22-30) mmol/L Anion Gap 15 mmol/L BUN 10 (7-17) mg/dL Creatinine 0.62 (0.52-1.04) mg/dL Est GFR (CKD-EPI)AfAm >90 (>60 ml/min/1.73 sqM) Est GFR (CKD-EPI)NonAf >90 (>60 ml/min/1.73 sqM) Glucose 103 H (74-99) mg/dL Calcium 10.0 (8.4-10.2) mg/dL Magnesium 1.8 (1.6-2.3) mg/dL Total Bilirubin 0.6 (0.2-1.3) mg/dL AST 20 (14-36) U/L ALT 23 (4-34) U/L Alkaline Phosphatase 64 (38-126) U/L Total Protein 7.8 (6.3-8.2) g/dL Albumin 4.6 (3.5-5.0) g/dL HCG, Quant 67255.2 mIU/mL Urine Color Urine Appearance (Clear) Urine pH (5.0-8.0) Ur Specific [place] (1.001-1.035) Urine Protein (Negative) Urine Glucose (UA) (Negative) Urine Ketones (Negative) Urine Blood (Negative) Urine Nitrite (Negative) Urine Bilirubin (Negative) Urine Urobilinogen (<2.0) mg/dL Ur Leukocyte Esterase (Negative) Urine RBC (0-5) /hpf Urine WBC (0-5) /hpf Ur Squamous Epith Cells (0-4) /hpf Amorphous Sediment (None) /hpf Urine Mucus (None) /hpf Influenza Type A (PCR) Not Detected (Not Detectd) Influenza Type B (PCR) Not Detected (Not Detectd) RSV (PCR) Not Detected (Not Detectd) SARS-CoV-2 (PCR) Not Detected (Not Detectd) 11/23/23 Range/Units 11:56 WBC (3.8-10.6) k/uL RBC (3.80-5.40) m/uL Hgb (11.4-16.0) gm/dL Hct (34.0-46.0) % MCV (80.0-100.0) fL MCH (25.0-35.0) pg MCHC (31.0-37.0) g/dL RDW (11.5-15.5) % Plt Count (150-450) k/uL MPV Neutrophils % % Lymphocytes % % Monocytes % % Eosinophils % % Basophils % % Neutrophils # (1.3-7.7) k/uL Lymphocytes # (1.0-4.8) k/uL Monocytes # (0-1.0) k/uL Eosinophils # (0-0.7) k/uL Basophils # (0-0.2) k/uL Sodium (137-145) mmol/L Potassium (3.5-5.1) mmol/L Chloride (98-107) mmol/L Carbon Dioxide (22-30) mmol/L Anion Gap mmol/L BUN (7-17) mg/dL Creatinine (0.52-1.04) mg/dL Est GFR (CKD-EPI)AfAm (>60 ml/min/1.73 sqM) Est GFR (CKD-EPI)NonAf (>60 ml/min/1.73 sqM) Glucose (74-99) mg/dL Calcium (8.4-10.2) mg/dL Magnesium (1.6-2.3) mg/dL Total Bilirubin (0.2-1.3) mg/dL AST (14-36) U/L ALT (4-34) U/L Alkaline Phosphatase (38-126) U/L Total Protein (6.3-8.2) g/dL Albumin (3.5-5.0) g/dL HCG, Quant mIU/mL Urine Color Yellow Urine Appearance Cloudy H (Clear) Urine pH 8.0 (5.0-8.0) Ur Specific [place] 1.022 (1.001-1.035) Urine Protein Trace H (Negative) Urine Glucose (UA) Negative (Negative) Urine Ketones 2+ H (Negative) Urine Blood Negative (Negative) Urine Nitrite Negative (Negative) Urine Bilirubin Negative (Negative) Urine Urobilinogen <2.0 (<2.0) mg/dL Ur Leukocyte Esterase Negative (Negative) Urine RBC <1 (0-5) /hpf Urine WBC 2 (0-5) /hpf Ur Squamous Epith Cells 2 (0-4) /hpf Amorphous Sediment Few H (None) /hpf Urine Mucus Few H (None) /hpf Influenza Type A (PCR) (Not Detectd) Influenza Type B (PCR) (Not Detectd) RSV (PCR) (Not Detectd) SARS-CoV-2 (PCR) (Not Detectd) Disposition <JasmynCeletse - Last Filed: 11/23/23 11:25> Is patient prescribed a controlled substance at d/c from ED?: No <Jasmyne Dejesus - Last Filed: 11/24/23 10:25> Clinical Impression: Nausea and vomiting Disposition: HOME SELF-CARE Instructions (If sedation given, give patient instructions): Acute Nausea and Vomiting (ED) Additional Instructions: Return to the emergency department with any new, worsening, or concerning symptoms. You can take the Zofran up to every 8 hours as needed for nausea and vomiting. You can take the Reglan up to every 6 hours as needed for nausea and vomiting. Slowly advance your diet as tolerated and remain well-hydrated. Follow up with REACHER. Prescriptions: Metoclopramide [Reglan] 10 mg PO Q6H PRN #30 tab PRN Reason: Nausea And Vomiting Ondansetron Odt [Zofran Odt] 4 mg PO Q8HR PRN #30 tab PRN Reason: Nausea And Vomiting Referrals: Yu Lowery MD [Primary Care Provider] - 1-2 days Silvana Perry DO [Doctor of Osteopathic Medicine] - 1-2 days
[2023-11-23 11:47] VITALS: PULSE 80; RESP 18; TEMP 98
[2023-11-23] MEDS ORDERED: SODIUM CHLORIDE 0.9% 2,000 ML IV STA (11:55)
[2023-11-23] MEDS ORDERED: ONDANSETRON 4 MG/2 ML VIAL IVP STA (11:55)
[2023-11-23] MEDS ORDERED: PYRIDOXINE 100 MG/ML 1 ML VIAL IVP ONE (11:55)
[2023-11-23 12:14] LABS: Basophils % (A) 0 %; Eosinophils % (A) 0 %; HCT 42.8 % (34.0-46.0); HGB 14.6 gm/dL (11.4-16.0); Lymphocytes # (A) 1.6 k/uL (1.0-4.8); Lymphocytes % (A) 17 %; MCH 29.9 pg (25.0-35.0); MCHC 34.2 g/dL (31.0-37.0); MCV 87.4 fL (80.0-100.0); Monocytes # (A) 0.5 k/uL (0-1.0); Monocytes % (A) 5 %; Neutrophils # (A) 7.7 k/uL (1.3-7.7); Neutrophils % (A) 77 %; Platelet Count 282 k/uL (150-450); RBC 4.89 m/uL (3.80-5.40); RDW 13.4 % (11.5-15.5); WBC 9.9 k/uL (3.8-10.6)
[2023-11-23 12:26] LABS: ALT 23 U/L (4-34); AST 20 U/L (14-36); African American GFR (CKD) >90 (>60 ml/min/1.73 sqM); Albumin 4.6 g/dL (3.5-5.0); Alkaline Phosphatase 64 U/L (38-126); Anion Gap 15 mmol/L; Blood Urea Nitrogen 10 mg/dL (7-17); Carbon Dioxide 24 mmol/L (22-30); Chloride 102 mmol/L (98-107); Glucose 103 mg/dL (74-99); Magnesium 1.8 mg/dL (1.6-2.3); Non-African American GFR(CKD) >90 (>60 ml/min/1.73 sqM); Potassium 4.1 mmol/L (3.5-5.1); Sodium 141 mmol/L (137-145); Total Bilirubin 0.6 mg/dL (0.2-1.3); Total Protein 7.8 g/dL (6.3-8.2)
[2023-11-23] MEDS ORDERED: METOCLOPRAMIDE 5 MG/ML 2 ML VIAL IVP STA (12:47)
[2023-11-23 12:57] LABS: Amorphous Sediment,Urine Few /hpf; Appearance,Urine Cloudy (Clear); Bilirubin,Urine Negative (Negative); Blood,Urine Negative (Negative); Color,Urine Yellow; Glucose,Urine (UA) Negative (Negative); Ketones,Urine 2+ (Negative); Leukocyte Esterase,Urine Negative (Negative); Mucus,Urine Few /hpf; Nitrite,Urine Negative (Negative); Protein,Urine Trace (Negative); RBC,Urine <1 /hpf (0-5); Specific Gravity,Urine 1.022 (1.001-1.035); Squamous Epithelial Cell,Urine 2 /hpf (0-4); Urobilinogen,Urine <2.0 mg/dL (<2.0); WBC,Urine 2 /hpf (0-5)
[2023-11-23 13:06] LABS: HCG,Quantitative Serum 66845.2 mIU/mL
[2023-11-23 14:48] VITALS: BP 125/80
--- NOTE | 2023-11-23 14:55 | US ---
EXAMINATION TYPE: Transabdominal DATE OF EXAM: 11/23/2023 2:44 PM COMPARISON: NONE CLINICAL INDICATION: Female, 28 years old with history of Pelvic pain, N/V in ; N/V in pregn danielle EXAM PERFORMED: Transabdominal (TA) EXAM MEASUREMENTS: GESTATIONAL AGE / DATING Physician Established: Not yet established Dates by LMP: (13 weeks/6 days) EDC: 05/24/2024 Dates by First Scan: (13 weeks/6 days) EDC: 05/24/2024 Dates by Current Scan for: (13 weeks/5 days) EDC: 05/25/2024 MATERNAL ANATOMY Uterus: 12.5x9.5x9.6 Right Ovary: not visualized Left Ovary: 2.2x3.9x1.5cm Post CDS / Adnexa: wnl Presence of free fluid: no Presence of corpus luteal cyst: no Presence of subchorionic bleed: no GESTATION / SURVEY CRL: 7.64 (13 weeks/5 days) Yolk Sac (normal less than 6mm): not visualized Heart Rate: 155 bpm Rhythm: Normal IUP: Viable IUP Age Appropriate Anatomy Cord Insertion: Visualized Limbs: Visualized Calvarium: Visualized Date of LMP: 08/18/23 Beta HcG (if available): Not available at this time 1cm anechoic area noted in posterior/ fundal placenta may be a placental sebastian IMPRESSION: 1. Single intrauterine gestation measuring 13 weeks 5 days gestation based on crown-rump length. Card iac activity measures 155 bpm. 2. There may be a placental sebastian present, follow-up imaging can be performed.
== END 2023-11-23 14:47 | disposition home or self-care (01) ==
LOC: EC 11:02
DX: O21.9 Vomiting of pregnancy, unspecified (principal); O99.511 Diseases of the respiratory system complicating pregnancy, first trimester; J45.909 Unspecified asthma, uncomplicated; O99.331 Smoking (tobacco) complicating pregnancy, first trimester; F17.290 Nicotine dependence, other tobacco product, uncomplicated; O99.321 Drug use complicating pregnancy, first trimester; F12.90 Cannabis use, unspecified, uncomplicated; Z20.822 Contact with and (suspected) exposure to COVID-19; Z3A.13 13 weeks gestation of pregnancy
CPT/HCPCS: 36415; 80053; 83735; 85025; 81001; 84702; 87636; 76801; 99284; 96374; 96375 ×2; 96361 ×3; J3415; J2765; J2405

== ENCOUNTER → 2024-02-10 | Outpatient (CLI) | payer OTHER ==
--- NOTE | 2024-02-10 18:17 | US ---
EXAMINATION TYPE: US OB anatomy transabd DATE OF EXAM: 02/10/2024 COMPARISON: 11/23/2023 CLINICAL INDICATION: Female, 28 years old with history of Z34.90 ENCNTR FOR SUPRVSN OF NORMAL PREGNAN CY, UNS; Anatomy scan. Patient states this is the second time getting the anatomy done, first scan in [place]. TECHNIQUE: Transabdominal (TA) EXAM MEASUREMENTS: GESTATIONAL AGE / DATING Physician Established: (25 weeks/1 days) EDC: 05/24/2024 Dates by LMP: (25 weeks/1 days) EDC: 05/24/2024 Dates by First Scan: (25 weeks/0 days) EDC: 05/25/2024 Dates by Current Scan for: (24 weeks/5 days) EDC: 05/27/2024 SURVEY IUP: Single PLACENTA: Fundal PREVIA: No previa MARISABEL: 15.6 cm Normal CERVICAL LENGTH (transabdominal: norm > 3.0cm): 3.6 cm BIOMETRY PRESENTATION: Vertex LIE: Longitudinal BPD: 6.1 cm 24 weeks / 6 days HC: 21.7 cm 23 weeks / 6 days AC: 19.7 cm 24 weeks / 3 days FL: 4.6 cm 25 weeks / 2 days ESTIMATED WEIGHT IN GRAMS: 721 grams ESTIMATED WEIGHT IN LBS/OZ: 1 lbs. 9 oz. WEIGHT PERCENTAGE BASED ON ESTABLISHED DATE: 21 % HC/AC: 1.1 Normal FL/AC: 23% Normal HEART RATE: 147 bpm RHYTHM: Normal ANATOMY SEEN (within normal limits): * Lateral Vent (< 1 cm) 0.9 cm * Cisterna Magna (< 1.1 cm) 0.5 cm * Nuchal Fold (< 0.6 cm) 4.8 cm * Cerebellum (varies with age) 2.8 cm Choroid Plexus (bilateral) Midline Falx Cavus Septi Pellucidi Four Chamber Heart Outflow tracts: LVOT/RVOT Stomach Situs Nose / Lips Diaphragm Kidneys (bilateral) Bladder Cord Insert Three Vessel Cord Longitudinal Spine Transverse Spine Arms (bilateral) Legs (bilateral) ANATOMY SEEN (does not appear within normal limits): ANATOMY NOT SEEN: IMPRESSION: Single live intrauterine gestation ultrasound age 24 weeks 5 days.
== END | disposition home or self-care (01) ==
LOC: RADUSWWP 13:41
PROVIDERS: ATTEND Obstetrics & Gynecology
DX: Z34.92 Encounter for supervision of normal pregnancy, unspecified, second trimester (principal); Z3A.25 25 weeks gestation of pregnancy
CPT/HCPCS: 76811

== ENCOUNTER 2024-05-13 17:49 | Outpatient (CLI) | payer OTHER ==
[2024-05-13] MEDS: LACTATED RINGERS 1,000 ML IV ONE (18:28)
[2024-05-13] MEDS: FAMOTIDINE 20 MG/2 ML VIAL IV STA (18:33)
[2024-05-13] MEDS: METOCLOPRAMIDE 5 MG/ML 2 ML VIAL IVP STA (18:33)
[2024-05-13] MEDS: CAPSAICIN 0.025% CREAM 60 GM TUBE TOPICAL ONE (18:47)
[2024-05-13 19:16] VITALS: BP 129/76; PULSE 62; RESP 16; TEMP 96.4
--- NOTE | 2024-05-14 16:03 | P.MSEPDOC ---
Presenting Problems - Arrival Data Date of Arrival on Unit: 05/13/24 Time of Arrival on Unit: 17:49 Mode of Transport: Ambulatory - Complaint OB-Reason for Admission/Chief Complaint: Hyperemesis Medical History - Information : 4 Para: 2 Number of Living Children: 2 - Gestational Age Gestational Age by BALWINDER (wks/days): 38 Weeks and 3 Days - History Complications: Hx. Substance Abuse Comment: pt admits to thc use, reference to other "unknown" substance abuse prior to in pt record Review of Systems - Review of Systems Constitutional: No problems Breast: No problems ENT: No problems Cardiovascular: No problems Respiratory: No problems Gastrointestinal: No problems Genitourinary: No problems Musculoskeletal: No problems Neurological: No problems Skin: No problems Vital Signs - Temperature Temperature: 96.4 F Temperature Source: Temporal Artery Scan - Pulse Right Sitting Brachial Pulse Rate: 62 Pulse Assessment Method: Automatic Cuff - Respirations Respiratory Rate: 16 Oxygen Delivery Method: Room Air O2 Sat by Pulse Oximetry: 97 - Blood Pressure Right Arm Blood Pressure: 129/76 Blood Pressure Mean: 93 Blood Pressure Source: Automatic Cuff Medical Screen Scoring - Assessment - Baby A Baseline FHR: 135 Heart Rate - NICHD Category: Category I (Normal) NST: Reactive Physician Notification - Physician Notified Physician Notified Date: 05/13/24 Physician Notified Time: 18:15 Physician: Alessia Harrington Order Received: Yes - Notification Comment Comment: IV fluids, IV meds, topical cream, discharge if pt symtoms improve Maternal Triage Index - Maternal Triage Index Presenting for scheduled procedure w/no complaint: No - Stat/Priority 1 Stat Priority 1: No - Urgent/Priority 2 Urgent Priority 2: No - Prompt/Priority 3 Prompt Priority 3: No - Non-Urgent/Priority 4 Non-Urgent Priority 4: Yes Criteria Met for Priority 4: hyperemesis Disposition - Disposition OB Disposition: Discharge to home Discharge Date: 05/13/24 Discharge Time: 19:05 I agree with the RN Medical Screening Exam: Yes Physician's MSE Comment: I have neither seen nor examined the patient Case reviewed; plan agreed upon as documented in EMR&OBIX.: Yes Diagnosis: MATERNAL CARE FOR PROBLEM, UNSP, THIRD * DO NOT USE *
== END 2024-05-13 19:05 | disposition home or self-care (01) ==
LOC: FBPOP 17:49
PROVIDERS: ATTEND Obstetrics & Gynecology
DX: O21.9 Vomiting of pregnancy, unspecified (principal); O99.323 Drug use complicating pregnancy, third trimester; F12.90 Cannabis use, unspecified, uncomplicated; Z3A.38 38 weeks gestation of pregnancy; Z87.891 Personal history of nicotine dependence
CPT/HCPCS: 96365; 96375; G0463; J2765; J3490; 99214

== ENCOUNTER 2024-05-22 05:46 | Inpatient (IN) | payer OTHER ==
[2024-05-22] MEDS ORDERED: CARBOPROST TROMETHAMINE 250 MCG/ML 1 ML AMP IM PRN (05:59)
[2024-05-22] MEDS ORDERED: TRANEXAMIC 1,000 MG/100ML-NACL 1,000 MG in EMPTY BAG 1 BAG IV PRN (05:59)
[2024-05-22] MEDS ORDERED: OXYTOCIN 10 UNIT/ML 1 ML VIAL IM PRN (05:59)
[2024-05-22] MEDS ORDERED: METHYLERGONOVINE 0.2 MG/ML 1 ML AMP IM PRN (05:59)
[2024-05-22] MEDS ORDERED: TERBUTALINE 1 MG/ML VIAL SQ PRN (05:59)
[2024-05-22] MEDS ORDERED: LIDOCAINE 0.5% (PF) 5 MG/ML (50 ML SDV) SQ PRN (05:59)
[2024-05-22] MEDS ORDERED: miSOPROStoL 200 MCG TAB PO PRN (05:59)
[2024-05-22] MEDS: LACTATED RINGERS 1,000 ML IV SCH (06:14)
[2024-05-22] MEDS: OXYTOCIN 30 UNITS/500 ML NS 30 UNIT in SALINE 1 500ML.BAG IV SCH (06:18)
[2024-05-22 06:40] LABS: Basophils % (A) 0 %; Eosinophils # (A) 0.1 k/uL (0-0.7); Eosinophils % (A) 1 %; HCT 34.6 % (34.0-46.0); HGB 11.2 gm/dL (11.4-16.0); Lymphocytes # (A) 2.3 k/uL (1.0-4.8); Lymphocytes % (A) 35 %; MCH 28.9 pg (25.0-35.0); MCHC 32.5 g/dL (31.0-37.0); MCV 88.9 fL (80.0-100.0); Mean Platelet Volume 8.8; Monocytes # (A) 0.3 k/uL (0-1.0); Monocytes % (A) 4 %; Neutrophils # (A) 3.8 k/uL (1.3-7.7); Neutrophils % (A) 58 %; Platelet Count 235 k/uL (150-450); RBC 3.89 m/uL (3.80-5.40); RDW 14.7 % (11.5-15.5); WBC 6.5 k/uL (3.8-10.6)
[2024-05-22 07:22] LABS: Barbiturate Screen,Urine Not Detected (NotDetected); Benzodiazepines Screen,Urine Not Detected (NotDetected); Cocaine Screen,Urine Not Detected (NotDetected); Methadone Screen, Urine Not Detected (NotDetected); Opiate Screen,Urine Not Detected (NotDetected); Oxycodone Screen, Urine Not Detected (NotDetected); Phencyclidine Screen,Urine Not Detected (NotDetected); Tricyclic Antidepressant,Urine Not Detected (NotDetected)
[2024-05-22] MEDS: NALBUPHINE 10 MG/ML (10 ML MDV) IV PRN (07:45)
[2024-05-22] MEDS ORDERED: SODIUM CHLORIDE 0.9% 250 ML BAG ONE (07:55)
[2024-05-22] MEDS ORDERED: fentaNYL (PF) 50 MCG/ML 5 ML AMP ONE (07:55)
[2024-05-22] MEDS ORDERED: ROPIVACAINE 5 MG/ML 30 ML VIAL ONE (07:55)
--- NOTE | 2024-05-22 08:11 | P.HPOB ---
History of Present Illness H&P Date: 05/22/24 Chief Complaint: induction of labor 28 year old presents at 39+ weeks for induction of labor. Her cervix is 4/80/-2 and she is wilmer irregularly. heart tones 140 with moderate variability and reactive. Review of Systems All systems: negative Constitutional: Denies chills, Denies fever Eyes: denies blurred vision, denies pain Ears, nose, mouth and throat: Denies headache, Denies sore throat Cardiovascular: Denies chest pain, Denies shortness of breath Respiratory: Denies cough Gastrointestinal: Denies abdominal pain, Denies diarrhea, Denies nausea, Denies vomiting Genitourinary: Denies dysuria, Denies hematuria Musculoskeletal: Denies myalgias Integumentary: Denies pruritus, Denies rash Neurological: Denies numbness, Denies weakness Psychiatric: Denies anxiety, Denies depression Endocrine: Denies fatigue, Denies weight change Past Medical History Past Medical History: Asthma, Musculoskeletal Disorder Additional Past Medical History / Comment(s): kidney stones, right hip " muscle rubs on the bone". hard of hearing in left ear. nearsighted. wears glasses History of Any Multi-Drug Resistant Organisms: None Reported Past Surgical History: No Surgical Hx Reported Additional Past Anesthesia/Blood Transfusion Reaction / Comment(s): no hx Past Psychological History: Bipolar, Depression Additional Psychological History / Comment(s): states hx of bipolar at 15 years old after suicide attempt. also states hse was suicidal when she found out she was . states she was on meds at 15 years old but took her off of them after a short time. no meds during . Smoking Status: Current every day smoker Past Alcohol Use History: None Reported Past Drug Use History: Marijuana Additional Drug Use History / Comment(s): cannibis use for several years. last used 2 mos ago. d enies ever using any other drugs or otc meds. - Past Family History Father Additional Family Medical History / Comment(s): psychological history-, seizure, etoh hx Mother Family Medical History: Coronary Artery Disease (CAD), Thyroid Disorder Additional Family Medical History / Comment(s): diverticulitis, Medications and Allergies Home Medications Medication Instructions Recorded Confirmed Type Ondansetron [Zofran ODT] 4 mg PO Q8HR PRN #20 tab 03/17/21 05/22/24 Rx Allergies Allergy/AdvReac Type Severity Reaction Status Date / Time No Known Allergies Allergy Verified 05/22/24 05:57 Exam Osteopathic Statement: *. No significant issues noted on an osteopathic structural exam other than those noted in the History and Physical/Consult. Vital Signs Temp Pulse Resp BP Pulse Ox 05/22/24 06:07 96.8 F L 72 16 109/64 97 Intake and Output 05/21/24 05/22/24 05/22/24 22:59 06:59 14:59 Other: # Voids 1 Weight 86.183 kg Heart: Regular rate and rhythm Lungs: Clear to auscultation bilaterally Abdomen: Soft, nontender Extremities: Negative Homans sign Results Result Diagrams: 05/22/24 06:19 Abnormal Lab Results - Last 24 Hours (Table) 05/22/24 05/22/24 Range/Units 06:15 06:19 Hgb 11.2 L (11.4-16.0) gm/dL Ur Amphetamines Screen Detected H (NotDetected) U Marijuana (THC) Screen Detected H (NotDetected) Assessment and Plan (1) Elective induction of labor planned Current Visit: Yes Status: Acute Code(s): [id number] - SNOMED Code(s): 582136286 Plan: 1. induction of labor with amniotomy and pitocin 2. anticipate normal vaginal delivery
[2024-05-22] MEDS ORDERED: diphenhydrAMINE 50 MG/ML 1 ML VIAL IVP PRN ×2 (08:51)
[2024-05-22] MEDS ORDERED: diphenhydrAMINE 25 MG CAP PO PRN (08:51)
[2024-05-22] MEDS ORDERED: HYDROCORTISONE 2.5% RECTAL CREAM 30 GM TUBE RECTAL PRN (08:51)
[2024-05-22] MEDS ORDERED: LANOLIN CREAM 1 GM TUBE TOPICAL PRN (08:51)
[2024-05-22] MEDS ORDERED: ZOLPIDEM 5 MG TAB PO PRN (08:51)
[2024-05-22] MEDS ORDERED: diphenhydrAMINE 50 MG CAP PO PRN (08:51)
[2024-05-22] MEDS ORDERED: SIMETHICONE 80 MG CHEWABLE PO PRN (08:51)
--- NOTE | 2024-05-22 08:51 | P.PROBDLV ---
Vaginal Delivery Note - . Vaginal Delivery Note: 28 year old presents at 39+ weeks for induction of labor. Her cervix is 4/80/-2 and she is wilmer irregularly. heart tones 140 with moderate variability and reactive. Pitocin augmentation was started and amniotomy was performed at 7:20 AM, clear fluid noted. She got uncomfortable pretty quickly wanted epidural. She sat up for the epidural was 8 cm dilated laid down and she was complete pushed once and delivered a viable female infant at 8:37 AM over intact perineum. Head delivered OA and was delivered by nursing staff as I walked in the room. laid vigorously on her mother's abdomen. Apgars 9, 9, weight 6 lbs. 7 oz.Cord clamped and cut and nose and mouth bulb suctioned. Placenta delivered spontaneously, intact with three-vessel cord at 8:43 AM. Vagina, cervix, and perineum were inspected. Right labial laceration was noted, not bleeding and the patient refused repair. Mother and baby in stable condition EBL 200 mL.
[2024-05-22] MEDS ORDERED: OXYTOCIN 30 UNITS/500 ML NS 30 UNIT in SALINE 1 500ML.BAG IV SCH (09:00)
[2024-05-22] MEDS: IBUPROFEN 600 MG TAB PO PRN (09:28)
[2024-05-22] MEDS: BENZOCAINE/MENTHOL SPRAY 1 GM/SPRAY AEROSOL TOPICAL PRN (09:39)
[2024-05-22 11:05] LABS: Urn Cannabinoid Scrn Detected (NotDetected)
[2024-05-22 11:16] LABS: Amphetamine Screen,Urine Not Detected (NotDetected)
[2024-05-22] MEDS: ACETAMINOPHEN TAB 325 MG TAB PO PRN (19:57)
[2024-05-22] MEDS: SENNOSIDES-DOCUSATE SODIUM 1 EACH TAB PO SCH (20:03)
[2024-05-23 07:48] LABS: Basophils % (A) 0 %; Eosinophils % (A) 1 %; HGB 11.2 gm/dL (11.4-16.0); Lymphocytes # (A) 1.9 k/uL (1.0-4.8); Lymphocytes % (A) 27 %; MCH 28.8 pg (25.0-35.0); MCHC 32.1 g/dL (31.0-37.0); MCV 89.8 fL (80.0-100.0); Mean Platelet Volume 9.2; Monocytes # (A) 0.3 k/uL (0-1.0); Monocytes % (A) 4 %; Neutrophils # (A) 4.8 k/uL (1.3-7.7); Neutrophils % (A) 68 %; Platelet Count 228 k/uL (150-450); RDW 14.8 % (11.5-15.5); WBC 7.1 k/uL (3.8-10.6)
--- NOTE | 2024-05-23 07:53 | P.DS ---
Providers Date of admission: 05/22/24 05:46 Expected date of discharge: 05/23/24 Attending physician: Joann Barrios Primary care physician: Stated None - Discharge Diagnosis(es) (1) Elective induction of labor planned Current Visit: Yes Status: Resolved (2) Normal vaginal delivery Current Visit: Yes Status: Acute Hospital Course: patient presented for induction of labor. She underwent a normal vaginal delivery without complication. course was uneventful. She denies na usea, vomiting, chest pain, shortness of breath or calf pain. Patient will be discharged home day #1 in stable condition to follow-up with me in 6 weeks. Plan - Discharge Summary New Discharge Prescriptions: New Ibuprofen [Motrin] 600 mg PO Q6HR PRN #30 tab PRN Reason: Mild Pain Or Fever >= 100.5 No Action Ondansetron [Zofran ODT] 4 mg PO Q8HR PRN #20 tab PRN Reason: Nausea Discharge Medication List Ondansetron [Zofran ODT] 4 mg PO Q8HR PRN #20 tab 03/17/21 [Rx] Ibuprofen [Motrin] 600 mg PO Q6HR PRN #30 tab 05/23/24 [Rx] Follow up Appointment(s)/Referral(s): Joann Barrios DO [Doctor of Osteopathic Medicine] - 07/03/24 2:30 pm Discharge Disposition: HOME SELF-CARE
[2024-05-24 00:19] VITALS: BP 117/70; PULSE 60; RESP 15; TEMP 98
== END 2024-05-24 05:40 | disposition home or self-care (01) | DRG 560 ==
LOC: 4FBP 05:46
PROVIDERS: ADMIT Obstetrics & Gynecology; ATTEND Obstetrics & Gynecology
PROC: 10E0XZZ Delivery of Products of Conception, External Approach (ICD-10-PCS; principal; 2024-05-22)
PROC: 3E033VJ Introduction of Other Hormone into Peripheral Vein, Percutaneous Approach (ICD-10-PCS; 2024-05-22)
PROC: 10907ZC Drainage of Amniotic Fluid, Therapeutic from Products of Conception, Via Natural or Artificial Opening (ICD-10-PCS; 2024-05-22)
DX: O99.334 Smoking (tobacco) complicating childbirth (principal); Z37.0 Single live birth; O99.344 Other mental disorders complicating childbirth; O70.0 First degree perineal laceration during delivery; Z3A.39 39 weeks gestation of pregnancy; Z91.51 Personal history of suicidal behavior
CPT/HCPCS: 80306; 85025; 86850; 86900; 86901

== ENCOUNTER → 2024-10-04 | Outpatient (CLI) | payer OTHER ==
[2024-10-04 18:15] LABS: Basophils # (A) 0.02 X 10*3/uL (0.00-0.10); Basophils % (A) 0.3 %; Eosinophils # (A) 0.05 X 10*3/uL (0.04-0.35); Eosinophils % (A) 0.7 %; HCT 36.8 % (37.2-46.3); HGB 12.5 g/dL (12.0-15.0); Lymphocytes # (A) 1.94 X 10*3/uL (0.90-5.00); Lymphocytes % (A) 25.6 %; MCH 30.7 pg (27.0-32.0); MCV 90.4 FL (80.0-97.0); Mean Platelet Volume 10.5 FL (9.5-12.2); Monocytes # (A) 0.47 X 10*3/uL (0.20-1.00); Monocytes % (A) 6.2 %; NRBC Per 100 WBC 0 X 10*3/uL (0.00-0.01); Neutrophils # (A) 5.07 X 10*3/uL (1.80-7.70); Neutrophils % (A) 66.9 %; Platelet Count 265 X 10*3/uL (140-440); RBC 4.07 X 10*6/uL (4.10-5.20); RDW 13.9 % (11.5-14.5); WBC 7.57 X 10*3/uL (4.50-10.00)
== END | disposition home or self-care (01) ==
LOC: LABPAT 14:20
PROVIDERS: ATTEND Obstetrics & Gynecology
DX: Z01.812 Encounter for preprocedural laboratory examination (principal)
CPT/HCPCS: 85025

== ENCOUNTER 2024-10-24 15:19 | Emergency (ER) | payer OTHER ==
[2024-10-24 15:23] VITALS: BP 123/80; PULSE 62; RESP 18; TEMP 97.5
--- NOTE | 2024-10-24 16:14 | ED ---
General Adult HPI - General Chief complaint: Nausea/Vomiting/Diarrhea Stated complaint: vomiting Time Seen by Provider: 10/24/24 15:36 Source: patient Mode of arrival: ambulatory Limitations: no limitations - History of Present Illness Initial comments: Dictation was produced using [employer] dictation software. please excuse any grammatical, word or spelling errors. Chief Complaint: 29-year-old marijuana user presents to the ER for abdominal pain nausea vomiting History of Present Illness: Patient 29-year-old female she states she smokes marijuana daily. States that she has been feeling nauseated with abdominal pain total body pain since this morning. Patient is a poor historian at this time due to clinical condition. States that hurts all over. Denies any fever chills or night sweats. The ROS documented in this emergency department record has been reviewed and confirmed by me. Those systems with pertinent positive or negative responses have been documented in the HPI. All other systems are other negative and/or noncontributory. - Related Data Home Medications Medication Instructions Recorded Confirmed No Known Home Medications 10/05/24 10/05/24 Allergies Allergy/AdvReac Type Severity Reaction Status Date / Time strawberry Allergy Rash/Hives Verified 10/05/24 13:22 Review of Systems ROS Statement: Those systems with pertinent positive or pertinent negative responses have been documented in the HPI. ROS Other: All systems not noted in ROS Statement are negative. Past Medical History Past Medical History: Asthma, Musculoskeletal Disorder Additional Past Medical History / Comment(s): kidney stones, right hip " muscle rubs on the bone". hard of hearing in left ear. nearsighted. wears glasses History of Any Multi-Drug Resistant Organisms: None Reported Past Surgical History: No Surgical Hx Reported Additional Past Anesthesia/Blood Transfusion Reaction / Comment(s): no hx Past Psychological History: Bipolar, Depression Smoking Status: Current every day smoker Past Alcohol Use History: None Reported Past Drug Use History: None Reported - Past Family History Father Additional Family Medical History / Comment(s): psychological history-, seizure, etoh hx Mother Family Medical History: Coronary Artery Disease (CAD), Thyroid Disorder Additional Family Medical History / Comment(s): diverticulitis, General Exam - General Exam Comments Initial Comments: PHYSICAL EXAM: General Impression: Alert and oriented x3, acute distress secondary to vomiting HEENT: Normocephalic atraumatic, extra-ocular movements intact, pupils equal and reactive to light bilaterally, mucous membranes moist. Cardiovascular: Heart regular rate and rhythm Chest: Able to complete full sentences, no retractions, no tachypnea Abdomen: abdomen soft, total abdominal palpatory tenderness, non-distended, no organomegaly Musculoskeletal: Pulses present and equal in all extremities, no peripheral edema Motor: no focal deficits noted Neurological: CN II-XII grossly intact, no focal motor or sensory deficits noted Skin: Intact with no visualized rashes Psych: Anxious Limitations: no limitations Course Vital Signs 10/24/24 15:20 Temperature 97.5 F L Pulse Rate 62 Respiratory 18 Rate Blood Pressure 123/80 O2 Sat by Pulse 100 Oximetry EKG Findings - EKG Comments: EKG Findings:: My EKG interpretation: Ventricular rate 85, sinus rhythm,. 139, QRS 90, QTc 410. No IA prolongation, no QTC prolongation, no ST or T-wave changes noted. Overall, this EKG is unremarkable Medical Decision Making - Medical Decision Making Was pt. sent in by a medical professional or institution (, PA, [employer], urgent care, hospital, or shelter...) When possible be specific @ -[No] Did you speak to anyone other than the patient for history (EMS, parent, family, police, friend...)? What history was obtained from this source @ -[No] Did you review nursing and triage notes (agree or disagree)? Why? @ -[I reviewed and agree with nursing and triage notes] Were old charts reviewed (outside hosp., previous admission, EMS record, old EKG, old radiological studies, urgent care reports/EKG's, shelter records)? Report findings @ -[No old charts were reviewed] Differential Diagnosis (chest pain, altered mental status, abdominal pain women, abdominal pain men, vaginal bleeding, musculoskeletal, weakness, fever, dyspnea, syncope, headache, dizziness, GI bleed, back pain, seizure, CVA, palpatations, mental health)? @ -Differential abdominal pain women EKG interpreted by me (3pts min.). @ -[None done] X-rays interpreted by me (1pt min.). @ -[None done] CT interpreted by me (1pt min.). @ -[None done] U/S interpreted by me (1pt. min.). @ -[None done] What testing was considered but not performed or refused? (CT, X-rays, U/S, labs)? Why? @ -[None] What meds were considered but not given or refused? Why? @ -[None] Was smoking cessation discussed for >3mins.? @ -[No] Were there social determinants of health that impacted care today? How? (Homel essness, low income, unemployed, alcoholism, drug addiction, transportation, low edu. Level, literacy, decrease access to med. care, prison, rehab)? @ -Use of marijuana Was there de-escalation of care discussed even if they declined (Discuss DNR or withdrawal of care, Hospice)? DNR status @ -[No] What co-morbidities impacted this encounter? (DM, HTN, Smoking, COPD, CAD, Cancer, CVA, ARF, Chemo, Hep., AIDS, mental health diagnosis, sleep apnea, morbid obesity)? @ -[None] Was patient admitted / discharged? Hospital course, mention meds given and route, prescriptions, significant lab abnormalities, going to OR and other pertinent info. @ --year-old female presents to the emergency department with abdominal pain. Vital signs stable. Patient toxic appearing at the bedside secondary to nausea and vomiting. Laboratory evaluation obtained. Labs within acceptable limits. Incidentally there was beta quant of 30,000. ReSound shows live intrauterine fetus. Patient treated with antiemetics IV fluids. Patient left AMA prior to risk-benefit conversation. Likely cause of symptoms is hyperemesis. - Lab Data Result diagrams: 10/24/24 16:23 10/24/24 16:23 Lab Results 10/24/24 10/24/24 10/24/24 Range/Units 16:23 16:23 16:23 WBC 12.4 H (3.8-10.6) k/uL RBC 4.71 (3.80-5.40) m/uL Hgb 14.3 (11.4-16.0) gm/dL Hct 41.9 (34.0-46.0) % MCV 89.0 (80.0-100.0) fL MCH 30.4 (25.0-35.0) pg MCHC 34.2 (31.0-37.0) g/dL RDW 13.7 (11.5-15.5) % Plt Count 276 (150-450) k/uL MPV 7.5 Neutrophils % 88 % Lymphocytes % 8 % Monocytes % 3 % Eosinophils % 1 % Basophils % 0 % Neutrophils # 10.9 H (1.3-7.7) k/uL Lymphocytes # 1.0 (1.0-4.8) k/uL Monocytes # 0.4 (0-1.0) k/uL Eosinophils # 0.1 (0-0.7) k/uL Basophils # 0.0 (0-0.2) k/uL Sodium 139 (137-145) mmol/L Potassium 4.2 (3.5-5.1) mmol/L Chloride 108 H (98-107) mmol/L Carbon Dioxide 21 L (22-30) mmol/L Anion Gap 10 mmol/L BUN 12 (7-17) mg/dL Creatinine 0.61 (0.52-1.04) mg/dL Est GFR (CKD-EPI)AfAm >90 (>60 ml/min/1.73 sqM) Est GFR (CKD-EPI)NonAf >90 (>60 ml/min/1.73 sqM) Glucose 102 H (74-99) mg/dL Plasma Lactic Acid Daniel 1.9 (0.7-2.0) mmol/L Calcium 9.9 (8.4-10.2) mg/dL Magnesium 1.6 (1.6-2.3) mg/dL Total Bilirubin 0.9 (0.2-1.3) mg/dL AST 18 (14-36) U/L ALT 15 (4-34) U/L Alkaline Phosphatase 57 (38-126) U/L Total Protein 7.8 (6.3-8.2) g/dL Albumin 4.7 (3.5-5.0) g/dL Lipase 96 (23-300) U/L HCG, Quant 98117.0 mIU/mL Disposition Clinical Impression: Disposition: LEFT AGAINST MEDICAL ADVICE Condition: Fair Referrals: Yu Lowery MD [Primary Care Provider] - 1-2 days Time of Disposition: 18:54
[2024-10-24] MEDS: HALOPERIDOL LACTATE 5 MG/ML 1 ML VIAL IVP STA (16:23)
[2024-10-24] MEDS: METOCLOPRAMIDE 5 MG/ML 2 ML VIAL IVP STA ×2 (16:24→18:13)
[2024-10-24] MEDS: SODIUM CHLORIDE 0.9% 1,000 ML IV STA (16:26)
[2024-10-24 16:37] LABS: Basophils % (A) 0 %; Eosinophils # (A) 0.1 k/uL (0-0.7); Eosinophils % (A) 1 %; HCT 41.9 % (34.0-46.0); HGB 14.3 gm/dL (11.4-16.0); Lymphocytes % (A) 8 %; MCH 30.4 pg (25.0-35.0); MCHC 34.2 g/dL (31.0-37.0); Mean Platelet Volume 7.5; Monocytes # (A) 0.4 k/uL (0-1.0); Monocytes % (A) 3 %; Neutrophils # (A) 10.9 k/uL (1.3-7.7); Neutrophils % (A) 88 %; Platelet Count 276 k/uL (150-450); RBC 4.71 m/uL (3.80-5.40); RDW 13.7 % (11.5-15.5); WBC 12.4 k/uL (3.8-10.6)
[2024-10-24 16:48] LABS: ALT 15 U/L (4-34); AST 18 U/L (14-36); African American GFR (CKD) >90 (>60 ml/min/1.73 sqM); Albumin 4.7 g/dL (3.5-5.0); Alkaline Phosphatase 57 U/L (38-126); Anion Gap 10 mmol/L; Blood Urea Nitrogen 12 mg/dL (7-17); Calcium 9.9 mg/dL (8.4-10.2); Carbon Dioxide 21 mmol/L (22-30); Chloride 108 mmol/L (98-107); Glucose 102 mg/dL (74-99); Lipase 96 U/L (23-300); Magnesium 1.6 mg/dL (1.6-2.3); Non-African American GFR(CKD) >90 (>60 ml/min/1.73 sqM); Potassium 4.2 mmol/L (3.5-5.1); Sodium 139 mmol/L (137-145); Total Bilirubin 0.9 mg/dL (0.2-1.3); Total Protein 7.8 g/dL (6.3-8.2)
[2024-10-24] MEDS: MAG HYDROX/AL HYDROX/SIMETH 30 ML, HYOSCYAMINE ELIXIR 10 ML, LIDOCAINE VISCOUS 2% 10 ML PO STA (17:36)
--- NOTE | 2024-10-24 19:03 | US ---
EXAMINATION TYPE: US OB >= 14 wk fetus DATE OF EXAM: 10/24/2024 COMPARISON: None CLINICAL INDICATION: Female, 29 years old with history of abdominal pain, ; Patient vomiting and abdominal pain, unaware that . States she does not have periods. Patient moving a lot du e to medication that was given TECHNIQUE: Transabdominal (TA) FINDINGS: GESTATIONAL AGE / DATING Physician Established: Not yet established Dates by LMP: LMP unknown Dates by First Scan: No previous this is first scan Dates by Current Scan: (15 weeks/6 days) EDC: 04/11/25 Beta HCG (if available): SURVEY IUP: Single PLACENTA: posterior? PREVIA: No Previa MARISABEL: 12.9 cm Normal CERVICAL LENGTH (transabdominal: norm > 3.0cm): 3.0cm cm BIOMETRY PRESENTATION: Breech LIE: Variable BPD: 3.03 cm 15 weeks / 4 days HC: 11.22 cm 15 weeks / 4 days AC: 10.12 cm 16 weeks / 1 days FL: 1.92 cm 15 weeks / 5 days ESTIMATED WEIGHT IN GRAMS: 138 grams ESTIMATED WEIGHT IN LBS/OZ: 0 lbs. 5 oz. HC/AC: 1.11 FL/AC: 19% HEART RATE: 153 bpm RHYTHM: Normal IMPRESSION: 1. Single intrauterine gestation estimated at 15 weeks 6 days gestation based on the current ultrasou nd measurements. Cardiac activity measures 153 bpm. 2. Complete anatomy ultrasound recommended. [facility], Workstation: [facility], 10/24/2024 7:00 PM
== END 2024-10-24 18:50 | disposition left against medical advice (07) ==
LOC: EC 15:19
DX: O26.899 Other specified pregnancy related conditions, unspecified trimester (principal); O99.330 Smoking (tobacco) complicating pregnancy, unspecified trimester; R11.2 Nausea with vomiting, unspecified; R10.9 Unspecified abdominal pain; Z3A.00 Weeks of gestation of pregnancy not specified; Z91.018 Allergy to other foods; Z53.29 Procedure and treatment not carried out because of patient's decision for other reasons
CPT/HCPCS: 36415; 93005; 80053; 83605; 83690; 83735; 85025; 84702; 76805; 99284; 96374; 96376; 96361; J2765